=== PATIENT | female | born 1975 | race Caucasian/White ===

== ENCOUNTER 2020-10-08 10:36 | Outpatient (REF) | payer OTHER, SELFPAY ==
[2020-10-08 13:57] LABS: MANUAL DIFF FLAG NO
[2020-10-08 14:14] LABS: Basophils Absolute Auto 0.1 X10*3/uL (0.0-0.2); Basophils Percent Auto 0.5 % (0-2); Eosinophils Absolute Auto 0.6 X10*3/uL (0.0-0.4); Hematocrit 42.9 % (37-47); Hemoglobin 14.4 g/dl (12.0-16.0); Imm Gran Abs Auto 0.08 X10*3/uL (0.00-0.03); Imm Gran Pct Auto 0.9 % (0.0-0.4); Lymphocytes Absolute Auto 2.1 X10*3/uL (1.2-4.9); Lymphocytes Percent Auto 22.9 % (20-40); Mean Corpuscular HGB Conc 33.6 g/dl (31.0-35.0); Mean Corpuscular Hemoglobin 29.7 pg (27.0-33.0); Mean Corpuscular Volume 88.5 fL (80-98); Mean Platelet Volume 11.2 fL (9.4-12.3); Monocytes Absolute Auto 0.7 X10*3/uL (0.1-1.2); Monocytes Percent Auto 7.2 % (2-11); Neutrophils Absolute Auto 5.8 X10*3/uL (2.0-8.3); Neutrophils Percent Auto 62.5 % (45-73); Platelet Count 295 X10*3/uL (160-400); Red Blood Count 4.85 X10*6/uL (4.20-5.50); Red Cell Distribution Width 12.5 % (11.0-16.0); White Blood Count 9.2 X10*3/uL (4.8-10.8)
[2020-10-08 14:29] LABS: Alanine Aminotransferase 18 U/L (0-31); Albumin Level 4.5 g/dL (3.5-5.0); Alkaline Phosphatase 72 U/L (39-117); Anion Gap 12 (12-20); Aspartate Amino Transferase 17 U/L (5-31); Bilirubin Total 0.8 mg/dL (0.0-1.0); Blood Urea Nitrogen 19 mg/dL (9-16); Calcium 9.5 mg/dL (8.4-10.2); Carbon Dioxide 28 mmol/L (22-29); Chloride 100 mmol/L (96-108); Estimated Glomerular Filt Rate > 60; Glucose Random 92 mg/dL (60-115); Potassium 3.7 mmol/L (3.3-5.1); Sodium 136 mmol/L (135-145); Total Protein 7.5 g/dL (6.5-8.0)
[2020-10-09 03:11] LABS: LDL Cholesterol Direct 146 mg/dL (<100)
== END 2020-10-08 10:37 | disposition home or self-care (01) ==
LOC: HO.HMGCLDS 10:36
PROVIDERS: PCP Internal Medicine; Visit Provider Internal Medicine
DX: Z00.01 Encounter for general adult medical examination with abnormal findings (principal); J45.40 Moderate persistent asthma, uncomplicated; I10 Essential (primary) hypertension; K21.9 Gastro-esophageal reflux disease without esophagitis; Z91.09 Other allergy status, other than to drugs and biological substances
CPT/HCPCS: 36415; 80053; 83721; 85025

== ENCOUNTER 2021-03-14 15:37 | Outpatient (REF) | payer OTHER, SELFPAY | END 2021-03-14 15:38 | disposition home or self-care (01) | LOC: HO.LNP 15:37 | PROVIDERS: Visit Provider Physician Assistant Medical | DX: U07.1 COVID-19 (principal) | CPT/HCPCS: U0003; U0005 ==

== ENCOUNTER 2021-11-06 14:11 | Outpatient (REF) | payer OTHER, SELFPAY ==
[2021-11-06 16:38] LABS: MANUAL DIFF FLAG NO
[2021-11-06 16:43] LABS: Basophils Percent Auto 0.5 % (0-2); Eosinophils Absolute Auto 0.5 X10*3/uL (0.0-0.4); Eosinophils Percent Auto 5.6 % (0-4); Hematocrit 41.4 % (37.0-47.0); Hemoglobin 13.7 g/dl (12.0-16.0); Imm Gran Abs Auto 0.06 X10*3/uL (0.00-0.03); Imm Gran Pct Auto 0.7 % (0.0-0.4); Lymphocytes Absolute Auto 2.6 X10*3/uL (1.2-4.9); Lymphocytes Percent Auto 30.9 % (20-40); Mean Corpuscular HGB Conc 33.1 g/dl (31.0-35.0); Mean Corpuscular Volume 87.5 fL (80.0-98.0); Monocytes Absolute Auto 0.5 X10*3/uL (0.1-1.2); Monocytes Percent Auto 5.9 % (2-11); Neutrophils Absolute Auto 4.7 x10*3/uL (2.0-8.3); Neutrophils Percent Auto 56.4 % (45-73); Platelet Count 314 X10*3/uL (160-400); Red Blood Count 4.73 X10*6/uL (4.20-5.50); Red Cell Distribution Width 12.3 % (11.0-16.0); White Blood Count 8.4 X10*3/uL (4.8-10.8)
[2021-11-06 16:44] LABS: Appearance Urine HAZY; Color Urine YELLOW; Glucose Urine UA NEG (NEG); Leukocyte Esterase Urine NEG (NEG); Nitrite Urine NEG (NEG); Specific Gravity - Urine >= 1.030 (1.005-1.025); UACC Culture Trigger NO; Urine Blood 1+ (NEG); Urine Ketones NEG (NEG); Urine Protein NEG (NEG-TRACE)
[2021-11-06 16:57] LABS: Alanine Aminotransferase 18 U/L (0-31); Albumin Level 4.2 g/dL (3.5-5.0); Alkaline Phosphatase 67 U/L (39-117); Anion Gap 13 (12-20); Aspartate Amino Transferase 15 U/L (5-31); Bilirubin Total 0.4 mg/dL (0.0-1.0); Blood Urea Nitrogen 21 mg/dL (9-16); Calcium 9.5 mg/dL (8.4-10.2); Carbon Dioxide 27 mmol/L (22-29); Chloride 100 mmol/L (96-108); Estimated Glomerular Filt Rate > 60; Glucose Random 134 mg/dL (60-115); Potassium 3.3 mmol/L (3.3-5.1); Sodium 137 mmol/L (135-145); Total Protein 7.4 g/dL (6.5-8.0)
[2021-11-06 17:07] LABS: Squamous Epithelial Cell Urine 4+ /LPF; WBC Urine 0-2 /HPF (0-4)
[2021-11-06 17:08] LABS: Bacteria Urine 1+ /LPF; Mucus Urine 2+ /LPF
== END 2021-11-06 14:12 | disposition home or self-care (01) ==
LOC: HO.HMGCLDS 14:11
PROVIDERS: PCP Internal Medicine; Visit Provider Internal Medicine
DX: I10 Essential (primary) hypertension (principal); J45.40 Moderate persistent asthma, uncomplicated; K21.9 Gastro-esophageal reflux disease without esophagitis; Z91.09 Other allergy status, other than to drugs and biological substances
CPT/HCPCS: 36415; 80053; 81001; 85025

== ENCOUNTER 2023-09-21 12:42 | Outpatient (AMB) | payer OTHER, SELFPAY ==
[2023-09-21 12:47] VITALS: BP 120/84; PULSE 57; O2SAT 99; BMI 39.6
--- NOTE | 2023-09-21 12:47 | MHC.PC.OV ---
Vital Signs 09/21/23 12:47 Height 5 ft 6 in Weight 245 lb 2 oz BMI 39.6 BP 120/84 Blood Pressure Location Lt brachial Position Sitting Pulse 57 Pulse Source Pulse Oximeter Pulse Oximetry (%) 99 Oxygen Delivery Method Room Air Intake Visit Reasons: F/U on Symbicort Allergies amoxicillin Allergy (Unknown, Verified 09/21/23 12:49) hives hydromorphone [Dilaudid] Adverse Reaction (Unknown, Verified 09/21/23 12:49) makes her sick Environmental Allergy (Unknown, Uncoded 09/21/23 12:49) Unknown Medication List - Last Reconciled 09/21/23 by Shannan Mcnulty MD acetaminophen (Tylenol Extra Strength) 1,000 mg PO Q6H PRN albuterol sulfate 90 mcg/actuation (Ventolin HFA) 1 inh inhalation QID PRN 30 days fluticasone propionate 50 mcg/actuation (Allergy Relief (fluticasone)) 2 sprays intranasal DAILY hydrochlorothiazide 25 mg PO DAILY ipratropium-albuterol 0.5 mg-3 mg(2.5 mg base)/3 mL 3 mL inhalation Q4-6H PRN loratadine (Claritin) 10 mg PO DAILY metoprolol succinate ER 50 mg PO BID nifedipine ER 60 mg PO BID omeprazole 20 mg PO QAM 90 days Symbicort 160-4.5 mcg/actuation (budesonide-formoterol) 2 puffs inhalation BID 30 days NS Tobacco use date assessed: 09/21/23 Dental Screening Dental Screen Date: 09/21/23 Did you have a dental visit in the last 12 months?: No Did you have a dental problem in the last 6 months where you did not have access to dental care?: No Was dental information given to patient?: Patient has dentist HPI F/U on Symbicort HPI Details Patient is a 48-year-old female Patient is taking care of her sick father, also working full-time and home 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 8-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 We did the EKG today which shows normal sinus rhythm no acute findings 68 beats per minute Hypertension: Patient is taking all her medication blood pressure is running around 120s systolic she tells me, patient is monitoring it at home. Patient is on hydrochlorothiazide 25 mg, metoprolol 50 mg b.i.d. and nifedipine 60 mg b.i.d. Blood pressure is managed by Dr. [facility]er [facility] needs to be done today Asthma is stable patient is taking Symbicort regularly. She is also on DuoNeb aerosol treatment if needed Allergies are also stable patient is on steroid nasal spray, and long-acting antihistamine. Recurrent boils stable at this time BMI is elevated patient is trying to lose weight. Follow-up 4 months [facility] Surgical History History of surgery History of bone marrow donation History of myomectomy History of section Family History Father Neuropathy Diabetes mellitus Mother Afib CVD (cardiovascular disease) Myocardial infarction Brother Leukemia Brother No problems noted. Maternal Grandfather History of heart attack Maternal Grandmother Cancer Alzheimer's disease History of mastectomy Paternal Grandmother History of CVA (cerebrovascular accident) Paternal Grandfather Leukemia Maternal Aunt Ovarian cancer Brother No problems noted. Brother No problems noted. Son No problems noted. Social History Housing: House Alcohol intake: never Patient Tobacco Use Status: Never used Tobacco e-Cigarette/Vaping Use: Never Used service: No Current occupational status: employed Cognitive needs: No Hearing needs: No Vision needs: No Questionnaire PHQ-9 Over the last 2 weeks, how often have you been bothered by any of the following problems? 1. Little interest or pleasure in doing things: not at all 2. Feeling down, depressed, or hopeless: not at all 3. Trouble falling or staying asleep, or sleeping too much: several days 4. Feeling tired or having little energy: more than half the days 5. Poor appetite or overeating: not at all 6. Feeling bad about yourself - or that you are a failure or have let yourself or your family down: not at all 7. Trouble concentrating on things, such as reading the newspaper or watching television: not at all 8. Moving or speaking so slowly that other people could have noticed. Or the opposite - being so fidgety or restless that you have been moving around a lot more than usual: not at all 9. Thoughts that you would be better off or of hurting yourself in some way: not at all Total score: 3 Depression Screening Interpretation: Negative Depression Screening Done: Yes 67643 - PHQ-9 Billing: Yes Source: Developed by Drs. Andriy Jaramillo, Gissell Paniagua, Jono Stone and colleagues, with an educational jessa from [employer]. Thrive Questionnaire Date Thrive assessed: 09/21/23 I am a: Patient What is your living situation today?: I have a steady place to live Within the past 12 months, did the food you bought not last and you didn't have the money to get more?: Never true Within the past 12 months, did you worry whether your food would run out before you got money to buy more?: Never true Do you have trouble paying for medicines?: No Do you have trouble getting transportation to medical appointments?: No Do you have trouble paying your heating and electricity bill?: No Do you have trouble taking care of your child, family member or friend?: Yes Do you have trouble with day-to-day activities such as bathing, preparing meals, shopping, managing finances, etc.?: No Are you currently unemployed and looking for a job?: No Are you interested in more education?: No Please select the resources that you would like help with: None Currently or been in a relationship where the following occur: no concerns reported THRIVE Score: 0 AUDIT C Alcohol Use Questionnaire (AUDIT-C) 1. How often do you have a drink containing alcohol?: Never Total Score: 0 JLUIS-7 AMB Questionnaire JLUIS-7 Date JLUIS - 7 assessed: 09/21/23 Feeling nervous, anxious, or on edge: 1 = Several days Not being able to stop or control worryin = Not at all Worrying too much about different things: 0 = Not at all Trouble relaxin = Several days Being so restless that it is hard to sit still: 0 = Not at all Becoming easily annoyed or irritable: 0 = Not at all Feeling afraid as if something awful might happen: 0 = Not at all Total JLUIS-7 score (0-4 normal; 5-9 mild; 10-14 moderate; 15-21 severe): 2 Source: Developed by Drs. Andriy Jaramillo, Gissell Paniagua, Jono Stone and colleagues, with an educational jessa from [employer]. JLUIS-7 Assessment Billing JLUIS-7 Assessment Tool: JLUIS-7 Assessment 61810 Review of Systems Const Denies chills and Denies fever(s) ENT Denies epistaxis and Denies nasal discharge Resp Denies chest congestion, Denies cough and Denies hemoptysis GI Denies diarrhea and Denies nausea Skin/Breast Denies rash Neuro Reports no additional complaints Psych Reports no additional complaints Endo Reports no additional complaints Physical exam (Primary Care) Vital Signs: Last Vital Signs Pulse 57 09/21/23 12:47 BP 120/84 09/21/23 12:47 Pulse Ox 99 09/21/23 12:47 Oxygen Delivery Method Room Air 09/21/23 12:47 BMI result Body Mass Index 39.6 Tobacco/Smoking Status: Tobacco use Status Tobacco use date assessed 09/21/23 09/21/23 12:53 Patient Tobacco Use Status Never used Tobacco 09/21/23 12:53 e-Cigarette/Vaping Use Never Used 09/21/23 12:53 PHQ-9: PHQ-9 Score PHQ-9: Total score 3 09/21/23 13:16 Depression Screening Interpretation: Negative Thrive Assessment: Date of Thrive Assessment Date Thrive assessed 09/21/23 09/21/23 13:16 Currently or been in a relationship where the following occur: no concerns reported Const General: cooperative, comfortable and no acute distress Orientation/consciousness: patient oriented x3 HENMT Head: Yes normocephalic Eyes General: appearance normal, both eyes and all related structures Neck Neck: Yes supple Resp Effort & Inspection: normal respiratory effort, no cough and no stridor Cardio Rhythm: regular rhythm Heart sounds: S1 normal heart sound present and S2 normal heart sound present Skin General skin exam: turgor normal Neuro General: patient oriented x3, tone normal and moves all extremities Extrem Right lower extremity: no edema Left lower extremity: no edema Office Procedures EKG [id number], Complete Assessment and Plan Assessment & Plan (1) Hypertension, essential: Code(s): I10 - Essential (primary) hypertension (2) Asthma, moderate persistent: Code(s): J45.40 - Moderate persistent asthma, uncomplicated Qualifiers: Asthma complication type: uncomplicated Qualified Code(s): J45.40 - Moderate persistent asthma, uncomplicated (3) Environmental allergies: Code(s): Z91.09 - Other allergy status, other than to drugs and biological substances (4) Obesity due to excess calories: Code(s): E66.09 - Other obesity due to excess calories Qualifiers: Body mass index: BMI 39.0-39.9 Obesity classification: adult class 2 (BMI 35 - 39.9) Serious obesity comorbidity presence: with serious comorbidity Qualified Code(s): E66.01 - Morbid (severe) obesity due to excess calories; Z68.39 - Body mass index [BMI] 39.0-39.9, adult (5) Recurrent boils: Code(s): L02.93 - Carbuncle, unspecified (6) Chronic GERD: Code(s): K21.9 - Gastro-esophageal reflux disease without esophagitis (7) Atypical chest pain: Code(s): R07.89 - Other chest pain Plan Patient is a 48-year-old female Patient is taking care of her sick father, also working full-time and home 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 8-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 We did the EKG today which shows normal sinus rhythm no acute findings 68 beats per minute Hypertension: Patient is taking all her medication blood pressure is running around 120s systolic she tells me, patient is monitoring it at home. Patient is on hydrochlorothiazide 25 mg, metoprolol 50 mg b.i.d. and nifedipine 60 mg b.i.d. Blood pressure is managed by Dr. Mooreter [facility] needs to be done today Asthma is stable patient is taking Symbicort regularly. She is also on DuoNeb aerosol treatment if needed Allergies are also stable patient is on steroid nasal spray, and long-acting antihistamine. Recurrent boils stable at this time BMI is elevated patient is trying to lose weight. Follow-up 4 months Orders: Orders Comprehensive Met. Panel Today E66.09 - Other obesity due to excess calories, I10 - Essential (primary) hypertension, J45.40 - Moderate persistent asthma, uncomplicated, L02.93 - Carbuncle, unspecified, Z91.09 - Other allergy status, other than to drugs and biological substances TSH reflex Free T4 Today E66.09 - Other obesity due to excess calories, I10 - Essential (primary) hypertension, J45.40 - Moderate persistent asthma, uncomplicated, L02.93 - Carbuncle, unspecified, Z91.09 - Other allergy status, other than to drugs and biological substances Complete Blood Count Auto Diff Today E66.09 - Other obesity due to excess calories, I10 - Essential (primary) hypertension, J45.40 - Moderate persistent asthma, uncomplicated, L02.93 - Carbuncle, unspecified, Z91.09 - Other allergy status, other than to drugs and biological substances LDL Cholesterol Direct Today E66.09 - Other obesity due to excess calories, I10 - Essential (primary) hypertension, J45.40 - Moderate persistent asthma, uncomplicated, L02.93 - Carbuncle, unspecified, Z91.09 - Other allergy status, other than to drugs and biological substances AMB EKG-In Office Today R07.89 - Other chest pain Medications: New lorazepam 0.5 mg PO BEDTIME PRN 30 tabs 0RF anxiety Coding Level of Care Code Est Pt Level 4 (22504) Diagnoses Hypertension, essential I10 Moderate persistent asthma without complication J45.40 Asthma complication type: uncomplicated Environmental allergies Z91.09 Class 2 severe obesity due to excess calories with serious comorbidity and body mass index (BMI) of 39.0 to 39.9 in adult E66.01; Z68.39 Body mass index: BMI 39.0-39.9 Obesity classification: adult class 2 (BMI 35 - 39.9) Serious obesity comorbidity presence: with serious comorbidity Recurrent boils L02.93 Chronic GERD K21.9 Atypical chest pain R07.89 CPT Codes EKG - CPT: 21228-[id number], Complete ([id number]) Additional Codes JLUIS-7 Assessment Billing - JLUIS-7 Assessment Tool: JLUIS-7 Assessment 52479 ([id number])
== END 2023-09-21 13:21 | disposition home or self-care (01) ==
PROVIDERS: PCP Internal Medicine; Visit Provider Internal Medicine
DX: I10 Essential (primary) hypertension (principal); J45.40 Moderate persistent asthma, uncomplicated; Z91.09 Other allergy status, other than to drugs and biological substances; E66.01 Morbid (severe) obesity due to excess calories; Z68.39 Body mass index [BMI] 39.0-39.9, adult; L02.93 Carbuncle, unspecified; K21.9 Gastro-esophageal reflux disease without esophagitis; R07.89 Other chest pain
CPT/HCPCS: 93000; 99214

== ENCOUNTER 2023-09-21 13:22 | Outpatient (REF) | payer OTHER, SELFPAY ==
[2023-09-21 16:04] LABS: MANUAL DIFF FLAG NO
[2023-09-21 16:14] LABS: Basophils Absolute Auto 0.1 X10*3/uL (0.0-0.2); Basophils Percent Auto 0.7 % (0-2); Eosinophils Absolute Auto 0.5 X10*3/uL (0.0-0.4); Hematocrit 43.1 % (37.0-47.0); Hemoglobin 14.5 g/dl (12.0-16.0); Imm Gran Abs Auto 0.05 X10*3/uL (0.00-0.03); Imm Gran Pct Auto 0.6 % (0.0-0.4); Lymphocytes Absolute Auto 2.4 X10*3/uL (1.2-4.9); Lymphocytes Percent Auto 27.5 % (20-40); Mean Corpuscular HGB Conc 33.6 g/dl (31.0-35.0); Mean Corpuscular Hemoglobin 29.4 pg (27.0-33.0); Mean Corpuscular Volume 87.4 fL (80.0-98.0); Monocytes Absolute Auto 0.6 X10*3/uL (0.1-1.2); Monocytes Percent Auto 6.9 % (2-11); Neutrophils Absolute Auto 5.2 x10*3/uL (2.0-8.3); Neutrophils Percent Auto 58.3 % (45-73); Platelet Count 334 X10*3/uL (160-400); Red Blood Count 4.93 X10*6/uL (4.20-5.50); Red Cell Distribution Width 12.8 % (11.0-16.0); White Blood Count 8.9 X10*3/uL (4.8-10.8)
[2023-09-21 16:39] LABS: Alanine Aminotransferase 19 U/L (0-31); Albumin Level 4.3 g/dL (3.5-5.0); Alkaline Phosphatase 79 U/L (39-117); Anion Gap 11 (12-20); Aspartate Amino Transferase 16 U/L (5-31); Bilirubin Total 0.5 mg/dL (0.0-1.0); Blood Urea Nitrogen 18 mg/dL (9-16); Calcium 9.7 mg/dL (8.4-10.2); Carbon Dioxide 32 mmol/L (22-29); Chloride 100 mmol/L (96-108); Estimated Glomerular Filt Rate > 60; Glucose Random 92 mg/dL (60-115); Potassium 3.6 mmol/L (3.3-5.1); Sodium 139 mmol/L (135-145); Total Protein 7.8 g/dL (6.5-8.0)
[2023-09-22 09:48] LABS: LDL Cholesterol Direct 155 mg/dL (<100)
== END 2023-09-21 13:23 | disposition home or self-care (01) ==
LOC: HO.HMGCLDS 13:22
PROVIDERS: PCP Internal Medicine; Visit Provider Internal Medicine
DX: I10 Essential (primary) hypertension (principal); J45.40 Moderate persistent asthma, uncomplicated; E66.09 Other obesity due to excess calories; L02.93 Carbuncle, unspecified; Z91.09 Other allergy status, other than to drugs and biological substances
CPT/HCPCS: 36415; 80053; 83721; 84443; 85025

== ENCOUNTER 2024-02-06 15:49 | Outpatient (AMB) | payer OTHER, SELFPAY ==
--- NOTE | 2024-02-06 15:51 | MHC.OFFWIV ---
Intake Vital Signs 02/06/24 15:53 Height 5 ft 6 in Weight 240 lb BMI 38.7 BP 130/76 Blood Pressure Location Lt radial Position Sitting Pulse 76 Pulse Source Pulse Oximeter Temp 97.5 F Temp Source Temporal Artery Scan Pulse Oximetry (%) 98 Oxygen Delivery Method Room Air Intake Visit Reasons: EP- Patient is coughing and shortness of breath Intake Note: pt c/o cough and SOB. Covid + 8/2. symptoms not improving w/ meds Patient Tobacco Use Status: Never used Tobacco Allergies amoxicillin Allergy (Unknown, Verified 02/06/24 15:52) hives hydromorphone [Dilaudid] Adverse Reaction (Unknown, Verified 02/06/24 15:52) makes her sick Environmental Allergy (Unknown, Uncoded 02/06/24 15:52) Unknown Do you need a note to return to daycare/school/sports/work: No HPI EP- Patient is coughing and shortness of breath HPI Details This note is constructed using voice recognition software. While every effort has been made to ensure accuracy, heel top lift splitter errors may have been included. The patient is a 48 year old female who presents to the clinic today with dyspnea after being positive with COVID on January 26. She notes that she was seen in the urgent Care after several days, and was treated with prednisone burst, which she is on her last day of today. She notes that today she finally started getting some secretions up but did not feel better overall. She denies fever, chills, chest pain, does have cough and dyspnea with exertion and with talking, and with coughing. Does not have any dyspnea at rest. She is treating this with [id number] methods as well. She did not go to the emergency room as she is also responsible for the care of her elderly father, mother, and her child were all sick with COVID. [facility] History History of surgery History of bone marrow donation History of myomectomy History of section Family History Father Neuropathy Diabetes mellitus Mother Afib CVD (cardiovascular disease) Myocardial infarction Brother Leukemia Brother No problems noted. Maternal Grandfather History of heart attack Maternal Grandmother Cancer Alzheimer's disease History of mastectomy Paternal Grandmother History of CVA (cerebrovascular accident) Paternal Grandfather Leukemia Maternal Aunt Ovarian cancer Brother No problems noted. Brother No problems noted. Son No problems noted. Social History Housing: House Alcohol intake: never Patient Tobacco Use Status: Never used Tobacco e-Cigarette/Vaping Use: Never Used service: No Current occupational status: employed Cognitive needs: No Hearing needs: No Vision needs: No Review of Systems Const All systems reviewed & are unremarkable except as noted in HPI and below Physical Exam Vital Signs: Last Vital Signs Temp 97.5 F 02/06/24 15:53 Pulse 76 02/06/24 15:53 BP 130/76 02/06/24 15:53 Pulse Ox 98 02/06/24 15:53 Oxygen Delivery Method Room Air 02/06/24 15:53 BMI result Body Mass Index 38.7 Const General: cooperative, healthy appearing, comfortable and no acute distress Orientation/consciousness: patient oriented x3 Limitations: no limitations HEENT Head: Yes normal to inspection Ears: hearing grossly normal bilaterally, external ears normal and TM's normal bilaterally General nose exam: Normal external nose present, Normal nares present and No nasal discharge present Face and sinus: Yes normal facial exam and Yes sinuses nontender Mouth: Normal oral and palatal mucosa present and moist mucous membranes Throat: Yes tonsils normal, Yes uvula midline and Yes posterior oropharynx abnormal (Erythema) Eyes General: appearance normal, both eyes and all related structures Neck Neck: Yes normal visual inspection Resp Effort & Inspection: normal respiratory effort, able to speak in complete sentences, Actively coughing, no respiratory distress, not tachypneic, no tripod positioning and no use of accessory muscles Auscultation: clear to auscultation bilaterally Cardio Jugular venous distension: no JVD Rate: regular rate Rhythm: regular rhythm Heart sounds: S1 normal heart sound present, S2 normal heart sound present, no click, no gallops, no murmurs and no rubs Skin General skin exam: no rashes or lesions noted, elasticity normal and turgor normal Neuro General: patient oriented x3 Extrem General: Yes normal to inspection and Yes no clubbing, cyanosis or edema Assessment & Plan Assessment & Plan (1) Dyspnea: Code(s): R06.00 - Dyspnea, unspecified Qualifiers: Dyspnea type: dyspnea on exertion Qualified Code(s): R06.09 - Other forms of dyspnea Plan: Patient is 10 days status post COVID, is having some improvement in terms of secretions, however remains shortness of breath with exertion. She has completed her prednisone burst as it today, and would like to extend that. I have sent over prednisone taper. Additionally we are treating for atypical pneumonia with azithromycin, given the prolonged symptoms. Chest x-ray ordered to evaluate. Advised patient to go to the emergency room should she develop any shortness of breath at rest. Plan See above for full details and plan. Orders: Orders XR chest 2V Today R06.00 - Dyspnea, unspecified Medications: New azithromycin For 250 mg dose pack: take 500 mg today (day 1), then 250 mg for 4 days (days 2-5) PO 6 tabs 0RF prednisone see taper instructions: 5 pills daily for 2 days, then 4 pills daily for 2 days, then 3 pills daily for 2 days, then 2 pills daily for 2 days, then 1 pill daily for 2 days. 10 mg PO DIRECTED 30 tabs 0RF Coding Level of Care Code Est Pt Level 4 (97064) Diagnoses Dyspnea on exertion R06.09 Dyspnea type: dyspnea on exertion
[2024-02-06 15:53] VITALS: BP 130/76; PULSE 76; TEMP 36.4; O2SAT 98; BMI 38.7
== END 2024-02-06 16:18 | disposition home or self-care (01) ==
PROVIDERS: PCP Internal Medicine; Visit Provider Registered Nurse
DX: R06.09 Other forms of dyspnea (principal)
CPT/HCPCS: 99214

== ENCOUNTER 2024-02-06 16:09 | Outpatient (REF) | payer OTHER, SELFPAY ==
--- NOTE | ~2024-02-06 | XR_ITS ---
EXAMINATION: XR CHEST CLINICAL INFORMATION: Dyspnea. Covid positive. COMPARISON: None available. TECHNIQUE: 2 views of the chest were obtained. FINDINGS: The lungs are well expanded. Patchy bilateral airspace disease. No pleural effusion. Cardiac silhouette is within normal limits. XR/XR chest 2V IMPRESSION: Multifocal pneumonia. Follow-up until resolution is advised.
== END 2024-02-06 16:10 | disposition home or self-care (01) ==
LOC: HO.HMGCX 16:09
PROVIDERS: PCP Internal Medicine; Visit Provider Registered Nurse
DX: R06.00 Dyspnea, unspecified (principal)
CPT/HCPCS: 71046

== ENCOUNTER 2024-04-04 12:26 | Outpatient (AMB) | payer OTHER, SELFPAY ==
[2024-04-04 12:30] VITALS: BP 136/80; PULSE 88; O2SAT 95; BMI 37.8
--- NOTE | 2024-04-04 12:30 | A.OFFPC_ITS ---
Vital Signs 04/04/24 12:30 Height 5 ft 6 in Weight 234 lb 6 oz BMI 37.8 BP 136/80 Blood Pressure Location Lt brachial Position Sitting Pulse 88 Pulse Source Pulse Oximeter Pulse Oximetry (%) 95 Oxygen Delivery Method Room Air Intake Visit Reasons: Medications follow up Allergies amoxicillin Allergy (Unknown, Verified 02/06/24 15:52) hives hydromorphone [Dilaudid] Adverse Reaction (Unknown, Verified 02/06/24 15:52) makes her sick Environmental Allergy (Unknown, Uncoded 02/06/24 15:52) Unknown Medication List - Last Reconciled 04/04/24 by Shannan Mcnulty MD acetaminophen (Tylenol Extra Strength) 1,000 mg PO Q6H PRN azithromycin For 250 mg dose pack: take 500 mg today (day 1), then 250 mg for 4 days (days 2-5) PO fluticasone propionate 50 mcg/actuation (Allergy Relief (fluticasone)) 2 sprays intranasal DAILY hydrochlorothiazide 25 mg PO DAILY ipratropium-albuterol 0.5 mg-3 mg(2.5 mg base)/3 mL 3 mL inhalation Q4-6H PRN levofloxacin 750 mg PO DAILY loratadine (Claritin) 10 mg PO DAILY lorazepam 0.5 mg PO BEDTIME PRN metoprolol succinate ER 50 mg PO BID nifedipine ER 60 mg PO BID omeprazole 20 mg PO QAM prednisone 50 mg PO DAILY prednisone 10 mg PO DIRECTED Symbicort 160-4.5 mcg/actuation (budesonide-formoterol) 2 puffs inhalation BID 90 days NS Ventolin HFA 90 mcg/actuation (albuterol sulfate) 1 inh inhalation QID PRN 30 days NS Tobacco use date assessed: 09/21/23 Dental Screening Dental Screen Date: 09/21/23 HPI Medications follow up HPI Details Patient is a 49-year-old female who was last seen August of this year She has been dealing with father's sickness Patient is on lorazepam as a sleep aid only if needed Ninety tablets sent for next six-month She comes in six-month for follow-up appointment Asthma management is through this office patient is on Symbicort regularly and DuoNeb as needed she is doing well Allergies are stable with steroid nasal spray and long-acting antihistamine Hypertension: Patient is on hydrochlorothiazide 25 mg, metoprolol 50 mg b.i.d. and nifedipine 60 mg b.i.d. Blood pressure is managed by Dr. [facility] needs to be done today BMI is elevated patient is trying to lose weight. Follow-up 6 months [facility] Surgical History History of surgery History of bone marrow donation History of myomectomy History of section Family History Father Neuropathy Diabetes mellitus Mother Afib CVD (cardiovascular disease) Myocardial infarction Brother Leukemia Brother No problems noted. Maternal Grandfather History of heart attack Maternal Grandmother Cancer Alzheimer's disease History of mastectomy Paternal Grandmother History of CVA (cerebrovascular accident) Paternal Grandfather Leukemia Maternal Aunt Ovarian cancer Brother No problems noted. Brother No problems noted. Son No problems noted. Social History Housing: House Alcohol intake: never Patient Tobacco Use Status: Never used Tobacco e-Cigarette/Vaping Use: Never Used service: No Current occupational status: employed Cognitive needs: No Hearing needs: No Vision needs: No Questionnaire Thrive Questionnaire Date Thrive assessed: 09/21/23 AUDIT C Alcohol Use Questionnaire (AUDIT-C) 1. How often do you have a drink containing alcohol?: Never 3. How often do you have six or more drinks on one occasion?: Never Total Score: 0 Score Reviewed/Action Taken: Yes JLUIS-7 AMB Questionnaire JLUIS-7 Date JLUIS - 7 assessed: 09/21/23 Source: Developed by Drs. Andriy Jaramillo, Gissell Paniagua, Jono Stone and colleagues, with an educational jessa from [employer]. Review of Systems Const Denies chills and Denies fever(s) ENT Denies epistaxis and Denies nasal discharge Card Denies chest pain Resp Denies chest congestion, Denies cough and Denies hemoptysis GI Denies diarrhea and Denies nausea Skin/Breast Denies rash Neuro Reports no additional complaints Psych Reports no additional complaints Endo Reports no additional complaints Physical exam (Primary Care) Vital Signs: Last Vital Signs Pulse 88 04/04/24 12:30 BP 136/80 04/04/24 12:30 Pulse Ox 95 04/04/24 12:30 Oxygen Delivery Method Room Air 04/04/24 12:30 BMI result Body Mass Index 37.8 Tobacco/Smoking Status: Tobacco use Status Tobacco use date assessed 09/21/23 04/04/24 12:31 Patient Tobacco Use Status Never used Tobacco 04/04/24 12:31 e-Cigarette/Vaping Use Never Used 04/04/24 12:31 Thrive Assessment: Date of Thrive Assessment Date Thrive assessed 09/21/23 04/04/24 12:31 Const General: cooperative, comfortable and no acute distress Orientation/consciousness: patient oriented x3 HENMT Head: Yes normocephalic Eyes General: appearance normal, both eyes and all related structures Neck Neck: Yes supple Resp Effort & Inspection: normal respiratory effort, no cough and no stridor Cardio Rhythm: regular rhythm Heart sounds: S1 normal heart sound present and S2 normal heart sound present Skin General skin exam: turgor normal Neuro General: patient oriented x3, tone normal and moves all extremities Extrem Right lower extremity: no edema Left lower extremity: no edema Coding Level of Care Code Est Pt Level 4 (86015) Complex EM visit Add On G2211 Diagnoses Moderate persistent asthma without complication J45.40 Asthma complication type: uncomplicated Hypertension, essential I10 Environmental allergies Z91.09 Class 2 severe obesity due to excess calories with serious comorbidity and body mass index (BMI) of 39.0 to 39.9 in adult E66.01; Z68.39 Body mass index: BMI 39.0-39.9 Obesity classification: adult class 2 (BMI 35 - 39.9) Serious obesity comorbidity presence: with serious comorbidity Difficulty sleeping G47.9 Assessment & Plan Assessment & Plan (1) Asthma, moderate persistent: Code(s): J45.40 - Moderate persistent asthma, uncomplicated Category: Medical Qualifiers: Asthma complication type: uncomplicated Qualified Code(s): J45.40 - Moderate persistent asthma, uncomplicated (2) Hypertension, essential: Code(s): I10 - Essential (primary) hypertension Category: Medical (3) Environmental allergies: Code(s): Z91.09 - Other allergy status, other than to drugs and biological substances Category: Medical (4) Obesity due to excess calories: Code(s): E66.09 - Other obesity due to excess calories Category: Medical Qualifiers: Body mass index: BMI 39.0-39.9 Obesity classification: adult class 2 (BMI 35 - 39.9) Serious obesity comorbidity presence: with serious comorbidity Qualified Code(s): E66.01 - Morbid (severe) obesity due to excess calories; Z68.39 - Body mass index [BMI] 39.0-39.9, adult (5) Difficulty sleeping: Code(s): G47.9 - Sleep disorder, unspecified Category: Medical Plan Patient is a 49-year-old female who was last seen August of this year She has been dealing with father's sickness Patient is on lorazepam as a sleep aid only if needed Ninety tablets sent for next six-month She comes in six-month for follow-up appointment Asthma management is through this office patient is on Symbicort regularly and D uoNeb as needed she is doing well Allergies are stable with steroid nasal spray and long-acting antihistamine Hypertension: Patient is on hydrochlorothiazide 25 mg, metoprolol 50 mg b.i.d. and nifedipine 60 mg b.i.d. Blood pressure is managed by Dr. [facility] needs to be done today BMI is elevated patient is trying to lose weight. Follow-up 6 months Orders: Orders Complete Blood Count Auto Diff Today E66.01 - Morbid (severe) obesity due to excess calories, G47.9 - Sleep disorder, unspecified, I10 - Essential (primary) hypertension, J45.40 - Moderate persistent asthma, uncomplicated, Z68.39 - Body mass index [BMI] 39.0-39.9, adult, Z91.09 - Other allergy status, other than to drugs and biological substances Lipid Panel Today E66.01 - Morbid (severe) obesity due to excess calories, G47.9 - Sleep disorder, unspecified, I10 - Essential (primary) hypertension, J45.40 - Moderate persistent asthma, uncomplicated, Z68.39 - Body mass index [BMI] 39.0-39.9, adult, Z91.09 - Other allergy status, other than to drugs and biological substances TSH reflex Free T4 Today E66.01 - Morbid (severe) obesity due to excess calories, G47.9 - Sleep disorder, unspecified, I10 - Essential (primary) hypertension, J45.40 - Moderate persistent asthma, uncomplicated, Z68.39 - Body mass index [BMI] 39.0-39.9, adult, Z91.09 - Other allergy status, other than to drugs and biological substances [employer] [place]. Panel Fast Today E66.01 - Morbid (severe) obesity due to excess calories, G47.9 - Sleep disorder, unspecified, I10 - Essential (primary) hypertension, J45.40 - Moderate persistent asthma, uncomplicated, Z68.39 - Body mass index [BMI] 39.0-39.9, adult, Z91.09 - Other allergy status, other than to drugs and biological substances Medications: Changed From lorazepam 0.5 mg PO BEDTIME PRN 30 tabs 0RF anxiety To lorazepam 0.5 mg PO BEDTIME 90 days PRN 90 tabs 0RF anxiety Refilled ipratropium-albuterol 0.5 mg-3 mg(2.5 mg base)/3 mL 3 mL inhalation Q4-6H PRN 90 mL 0RF wheezing Symbicort 160-4.5 mcg/actuation (budesonide-formoterol) 2 puffs inhalation BID 90 days 3 multiple units 1RF NS Discontinued azithromycin Discontinued Reason: Doctor's Order For 250 mg dose pack: take 500 mg today (day 1), then 250 mg for 4 days (days 2-5) PO 6 tabs 0RF levofloxacin Discontinued Reason: Order 750 mg PO DAILY 7 tabs 0RF prednisone see taper instructions: 5 pills daily for 2 days, then 4 pills daily for 2 days, then 3 pills daily for 2 days, then 2 pills daily for 2 days, then 1 pill daily for 2 days. Discontinued Reason: Patient no longer taking 10 mg PO DIRECTED 30 tabs 0RF
== END 2024-04-04 12:41 | disposition home or self-care (01) ==
PROVIDERS: PCP Internal Medicine; Visit Provider Internal Medicine
DX: J45.40 Moderate persistent asthma, uncomplicated (principal); I10 Essential (primary) hypertension; Z91.09 Other allergy status, other than to drugs and biological substances; E66.01 Morbid (severe) obesity due to excess calories; Z68.39 Body mass index [BMI] 39.0-39.9, adult; G47.9 Sleep disorder, unspecified

== ENCOUNTER → 2024-04-04 12:26 | Outpatient (BNVA) | payer OTHER, SELFPAY | PROVIDERS: PCP Internal Medicine; Visit Provider Internal Medicine | DX: J45.40 Moderate persistent asthma, uncomplicated (principal); I10 Essential (primary) hypertension; Z91.09 Other allergy status, other than to drugs and biological substances; E66.01 Morbid (severe) obesity due to excess calories; Z68.39 Body mass index [BMI] 39.0-39.9, adult; G47.9 Sleep disorder, unspecified | CPT/HCPCS: 99212 ==

== ENCOUNTER 2024-04-04 12:43 | Outpatient (REF) | payer OTHER, SELFPAY ==
[2024-04-04 16:10] LABS: MANUAL DIFF FLAG NO
[2024-04-04 16:18] LABS: Basophils Absolute Auto 0.1 X10*3/uL (0.0-0.2); Basophils Percent Auto 0.5 % (0-2); Eosinophils Absolute Auto 0.4 X10*3/uL (0.0-0.4); Eosinophils Percent Auto 4.8 % (0-4); Hematocrit 41.9 % (37.0-47.0); Hemoglobin 14.3 g/dl (12.0-16.0); Imm Gran Abs Auto 0.04 X10*3/uL (0.00-0.03); Imm Gran Pct Auto 0.4 % (0.0-0.4); Lymphocytes Absolute Auto 2.3 X10*3/uL (1.2-4.9); Lymphocytes Percent Auto 25.6 % (20-40); Mean Corpuscular HGB Conc 34.1 g/dl (31.0-35.0); Mean Corpuscular Hemoglobin 29.6 pg (27.0-33.0); Mean Corpuscular Volume 86.7 fL (80.0-98.0); Monocytes Absolute Auto 0.6 X10*3/uL (0.1-1.2); Monocytes Percent Auto 6.6 % (2-11); Neutrophils Absolute Auto 5.7 x10*3/uL (2.0-8.3); Neutrophils Percent Auto 62.1 % (45-73); Platelet Count 346 X10*3/uL (160-400); Red Blood Count 4.83 X10*6/uL (4.20-5.50); Red Cell Distribution Width 12.8 % (11.0-16.0); White Blood Count 9.2 X10*3/uL (4.8-10.8)
[2024-04-04 16:37] LABS: Alanine Aminotransferase 19 U/L (0-31); Albumin Level 4.3 g/dL (3.5-5.0); Alkaline Phosphatase 78 U/L (39-117); Anion Gap 13 (12-20); Aspartate Amino Transferase 18 U/L (5-31); Bilirubin Total 0.7 mg/dL (0.0-1.0); Blood Urea Nitrogen 14 mg/dL (9-16); Calcium 9.8 mg/dL (8.4-10.2); Carbon Dioxide 28 mmol/L (22-29); Chloride 102 mmol/L (96-108); Cholesterol 221 mg/dL (<200); Estimated Glomerular Filt Rate > 60; Glucose Fasting 111 mg/dL (60-99); HDL Cholesterol 36 mg/dL (>40); LDL Cholesterol Calculated 141 mg/dL (<100); Sodium 140 mmol/L (135-145); Total Protein 7.6 g/dL (6.5-8.0); Triglycerides 223 mg/dL (<150)
[2024-04-04 16:52] LABS: TSH reflex Free T4 1.73 uIU/mL (0.32-4.0)
== END 2024-04-04 12:44 | disposition home or self-care (01) ==
LOC: HO.HMGCLDS 12:43
PROVIDERS: PCP Internal Medicine; Visit Provider Internal Medicine
DX: J45.40 Moderate persistent asthma, uncomplicated (principal); I10 Essential (primary) hypertension; Z91.09 Other allergy status, other than to drugs and biological substances; G47.9 Sleep disorder, unspecified; E66.01 Morbid (severe) obesity due to excess calories; Z68.39 Body mass index [BMI] 39.0-39.9, adult
CPT/HCPCS: 36415; 80053; 80061; 84443; 85025

== ENCOUNTER 2024-07-10 12:37 | Outpatient (AMB) | payer OTHER, SELFPAY ==
[2024-07-10 13:40] VITALS: BP 134/78; PULSE 90; TEMP 36.8; O2SAT 97; BMI 39.7
--- NOTE | 2024-07-10 13:40 | AM.OFFWIN_ITS ---
Intake Vital Signs 07/10/24 13:40 Height 5 ft 6 in Weight 246 lb BMI 39.7 BP 134/78 Blood Pressure Location Rt brachial Position Sitting Pulse 90 Pulse Source Pulse Oximeter Temp 98.2 F Temp Source Oral Pulse Oximetry (%) 97 Oxygen Delivery Method Room Air Intake Visit Reasons: EP ?bronchitis Intake Note: Pt is here today for a walk in visit. Pt c/o cough, congestion. Pt states that her 9 year child has bronchitis. Patient Tobacco Use Status: Never used Tobacco Allergies amoxicillin Allergy (Unknown, Verified 07/10/24 13:42) hives hydromorphone [Dilaudid] Adverse Reaction (Unknown, Verified 07/10/24 13:42) makes her sick Environmental Allergy (Unknown, Uncoded 07/10/24 13:42) Unknown Do you need a note to return to daycare/school/sports/work: Yes HPI HPI Comments History of Present Illness Details History - The patient is a 49-year-old female pr esenting with cough and nasal congestion. - Symptoms commenced four days prior, in itiated by general malaise, followed by cough and nasal discharge. - Suspected contagion source is her son, previously diagnosed with bronchitis but now feeling better with no antibiotics. - Notably reported mucus sensation in th roat and ear blockage, with a history of temperature readings typically around 97.4?F. - Patient has a chronic history of asthm a, with increased usage of Symbicort and Albuterol inhalers recently. - History of bronchitis and COVID-19 rosie ding to pneumonia, necessitating hospitalization in the summer. - Asthma-related interventions have incl uded nebulizer treatment and asthma inhalers; dependency increased with recent symptoms. 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 - Patient is requesting Azithromycin and prednisone today. Physical Exam General: Cooperative, healthy appearing, comfortable and no acute distress Orientation/consciousness: Patient oriented x3 Limitations: No limitations Head: Normal to inspection Ears: Hearing grossly normal bilaterally, external ears normal and TM's normal bilaterally, but ears are blocked Nose: Normal external nose present, Normal nares present and Runny nose present Face and sinus: Normal facial exam and Yes sinuses nontender Mouth: Normal oral and palatal mucosa present and moist mucous membranes Throat: Yes tonsils normal, Yes uvula midline. Posterior oropharynx erythema, no exudates noted Eyes: Appearance normal, both eyes and all related structures Neck: Normal visual inspection Respiratory: expiratory wheezes to auscultation bilaterally. Normal respiratory effort, able to speak in complete sentences, Actively coughing, no respiratory d istress, not tachypneic, no tripod positioning and no use of accessory muscles. Cardiovascular: Regular rate and rhythm. Normal S1 and S2 Skin: No rashes or lesions noted Neuro: Patient oriented x3 Extremities: Normal to inspection and Yes no clubbing, cyanosis or edema [facility] Surgical History History of surgery History of bone marrow donation History of myomectomy History of section Family History Father Neuropathy Diabetes mellitus Mother Afib CVD (cardiovascular disease) Myocardial infarction Brother Leukemia Brother No problems noted. Maternal Grandfather History of heart attack Maternal Grandmother Cancer Alzheimer's disease History of mastectomy Paternal Grandmother History of CVA (cerebrovascular accident) Paternal Grandfather Leukemia Maternal Aunt Ovarian cancer Brother No problems noted. Brother No problems noted. Son No problems noted. Social History Housing: House Alcohol intake: never Patient Tobacco Use Status: Never used Tobacco e-Cigarette/Vaping Use: Never Used service: No Current occupational status: employed Cognitive needs: No Hearing needs: No Vision needs: No Review of Systems Const All systems reviewed & are unremarkable except as noted in HPI and below Physical Exam Vital Signs: Last Vital Signs Temp 98.2 F 07/10/24 13:40 Pulse 90 07/10/24 13:40 BP 134/78 07/10/24 13:40 Pulse Ox 97 07/10/24 13:40 Oxygen Delivery Method Room Air 07/10/24 13:40 BMI result Body Mass Index 39.7 Assessment & Plan Assessment & Plan (1) Lower respiratory infection (e.g., bronchitis, pneumonia, pneumonitis, pulmonitis): Code(s): J22 - Unspecified acute lower respiratory infection Plan: Management involves continuation of her asthma treatment with nebulizer and inhaler use, alongside a five-day prednisone course for symptomatic relief. Az ithromycin is also prescribed due to its anti-inflammatory properties. Patient is advised that while antibiotic therapy is not typically effective for viral infections like flu, COVID-19, or RSV, it may be beneficial for anti- inflammatory symptomatic relief. Continued observation and possible chest x-ray are recommended if symptom progression occurs despite current medication. Current testing for flu, COVID-19, and RSV is underway to determine any viral etiology. The patient is reassured that observed throat irritation is most likely due to post-nasal drip rather than strep pharyngitis. Monitoring for potential symptom worsening and follow-up given the patient's history of respiratory complications is imperative. Patient was informed and verbally consented to the use of an ambient scribe for clinic note documentation during this visit Orders: Orders SARS-CoV2/FLU/RSV Today J22 - Unspecified acute lower respiratory infection XR chest 2V Today R05.9 - Cough, unspecified Medications: New azithromycin For 250 mg dose pack: take 500 mg today (day 1), then 250 mg for 4 days (days 2-5) PO 6 tabs 0RF prednisone 40 mg (2 x 20 mg) PO DAILY 10 tabs 0RF Coding Level of Care Code Est Pt Level 4 (13588) Diagnoses Lower respiratory infection (e.g., bronchitis, pneumonia, pneumonitis, pulmonitis) J22
== END 2024-07-10 14:10 | disposition home or self-care (01) ==
PROVIDERS: PCP Internal Medicine; Visit Provider Physician Assistant
DX: J22 Unspecified acute lower respiratory infection (principal)

== ENCOUNTER 2024-07-13 14:16 | Outpatient (REF) | payer OTHER, SELFPAY ==
--- NOTE | ~2024-07-13 | XR_ITS ---
EXAMINATION: XR CHEST 2 VIEWS HISTORY: R05.9 - Cough, unspecified COMPARISON: There are no prior studies for comparison. FINDINGS: PA and lateral views of the chest are submitted. There is faint residual opacity in the right upper lobe at site of previously seen pneumonia. The left lung is clear. There is no pleural effusion, pneumothorax, or pulmonary vascular congestion. The heart is normal in size. The bones are intact. XR/XR chest 2V IMPRESSION: Faint persistent right upper lobe opacity which could represent scarring. However, given lack of complete resolution since 02/06/2024, chest CT should be considered to exclude neoplasm. Electronically signed by: Andriy Suero MD 07/13/2024 03:43 PM EST
== END 2024-07-13 14:17 | disposition home or self-care (01) ==
LOC: HO.HMGCX 14:16
PROVIDERS: PCP Internal Medicine; Visit Provider Physician Assistant
DX: J20.5 Acute bronchitis due to respiratory syncytial virus (principal); R05.9 Cough, unspecified
CPT/HCPCS: 71046; 99212

== ENCOUNTER 2024-07-13 14:16 | Outpatient (AMB) | payer OTHER, SELFPAY ==
--- NOTE | 2024-07-13 14:57 | AM.OFFWIN_ITS ---
Intake Vital Signs 07/13/24 15:06 Weight 251 lb BP 140/100 H Blood Pressure Location Lt brachial Position Sitting Pulse 74 Pulse Source Pulse Oximeter Temp 98.7 F Temp Source Oral Pulse Oximetry (%) 97 Oxygen Delivery Method Room Air Intake Visit Reasons: EP RSV, severe cough, wheezing, SOB, congestion Intake Note: Patient here for severe cough, wheezing and SOB she states she has 1 more day of meds and has not improved. Patient Tobacco Use Status: Never used Tobacco Allergies amoxicillin Allergy (Unknown, Verified 07/13/24 15:09) hives hydromorphone [Dilaudid] Adverse Reaction (Unknown, Verified 07/13/24 15:09) makes her sick Environmental Allergy (Unknown, Uncoded 07/13/24 15:09) Unknown Do you need a note to return to daycare/school/sports/work: Yes HPI HPI Comments History of Present Illness Details History - The patient is a 49-year-old female pr esenting with breathing difficulty due to RSV infection. - Positive RSV diagnosis was confirmed o n September 07, leading to treatment interventions with prednisone and a Z-Diego with incomplete symptom resolution. - Recorded history of asthma since infan cy with frequent lifetime steroid use, requiring tapered dosing in the past. - Current symptoms include bronchial con gestion and impaired expectoration, persistent ear fullness, elevated blood pressure, and head fullness, with ongoing inhaler and nebulizer use. - Known difficulty swallowing large medi cations led to the current preference for liquid alternatives. - Recent interruption of kidney-related healthcare plans due to current respiratory illness. - Intervention history includes glucocor ticoid therapy initiated in the morning due to trouble sleeping when taken at night. Physical Exam General: Cooperative, healthy appearing, comfortable and no acute distress Orientation/consciousness: Patient oriented x3 Limitations: No limitations Head: Normal to inspection Ears: Hearing grossly normal bilaterally, external ears normal and TM's normal bilaterally Nose: Normal external nose present, Normal nares present and No nasal discharge present Face and sinus: Normal facial exam and Yes sinuses nontender Mouth: Normal oral and palatal mucosa present and moist mucous membranes Throat: Yes tonsils normal, Yes uvula midline. Posterior oropharynx erythema Eyes: Appearance normal, both eyes and all related structures Neck: Normal visual inspection Respiratory: exp wheezes bilaterally. Normal respiratory effort, able to speak in complete sentences, Actively coughing, no respiratory distress, not tachypneic, no tripod positioning and no use of accessory muscles Cardiovascular: Regular rate and rhythm. Normal S1 and S2 Skin: No rashes or lesions noted Neuro: Patient oriented x3 Extremities: Normal to inspection and Yes no clubbing, cyanosis or edema [facility] Surgical History History of surgery History of bone marrow donation History of myomectomy History of section Family History Father Neuropathy Diabetes mellitus Mother Afib CVD (cardiovascular disease) Myocardial infarction Brother Leukemia Brother No problems noted. Maternal Grandfather History of heart attack Maternal Grandmother Cancer Alzheimer's disease History of mastectomy Paternal Grandmother History of CVA (cerebrovascular accident) Paternal Grandfather Leukemia Maternal Aunt Ovarian cancer Brother No problems noted. Brother No problems noted. Son No problems noted. Social History Housing: House Alcohol intake: never Patient Tobacco Use Status: Never used Tobacco e-Cigarette/Vaping Use: Never Used service: No Current occupational status: employed Cognitive needs: No Hearing needs: No Vision needs: No Review of Systems Const All systems reviewed & are unremarkable except as noted in HPI and below Physical Exam Vital Signs: Last Vital Signs Temp 98.7 F 07/13/24 15:06 Pulse 74 07/13/24 15:06 BP 140/100 H 07/13/24 15:06 Pulse Ox 97 07/13/24 15:06 Oxygen Delivery Method Room Air 07/13/24 15:06 Assessment & Plan Assessment & Plan (1) RSV bronchitis: Code(s): J20.5 - Acute bronchitis due to respiratory syncytial virus Plan: Plan The management strategy for this patient's RSV infection with associated asthma exacerbation involves the use of Solu Medrol in a tapered dosage format to address inflammation associated with her respiratory symptoms. The patient will follow a specific schedule taking the entire day's medication dose in the morning to minimize sleep disruptions. A chest x-ray is ordered to assess any pulmonary involvement, particularly possible pneumonia, which would require antibiotics such as liquid Augmentin for ease of intake. Nebulizer therapy TID has been recommended to maintain open airways, with careful attention paid to her heart rate and overall response. Emergency care is advised if symptoms worsen significantly. Patient was informed and verbally consented to the use of an ambient scribe for clinic note documentation during this visit Medications: New albuterol sulfate 90 mcg/actuation (Ventolin HFA) 2 puffs inhalation Q4-6H PRN 8.5 grams 0RF shortness of breath or wheezing methylprednisolone PO PER PKG DIR for 6 days 21 ea 0RF Coding Level of Care Code Est Pt Level 4 (94805) Diagnoses RSV bronchitis J20.5
[2024-07-13 15:06] VITALS: BP 140/100; PULSE 74; TEMP 37.1; O2SAT 97
== END 2024-07-13 16:09 | disposition home or self-care (01) ==
PROVIDERS: PCP Internal Medicine; Visit Provider Physician Assistant
DX: J20.5 Acute bronchitis due to respiratory syncytial virus (principal)

== ENCOUNTER → 2024-07-13 15:29 | Outpatient (BNV) | payer OTHER, SELFPAY | PROVIDERS: PCP Internal Medicine; Visit Provider Radiology Diagnostic Radiology | DX: R05.9 Cough, unspecified (principal) | CPT/HCPCS: 71046 ==

== ENCOUNTER 2024-07-19 15:01 | Outpatient (AMB) | payer OTHER, SELFPAY ==
--- NOTE | 2024-07-19 15:08 | AM.OFFWIN_ITS ---
Intake Vital Signs 07/19/24 15:09 Weight 253 lb BP 140/100 H Blood Pressure Location Rt brachial Position Sitting Pulse 81 Pulse Source Pulse Oximeter Temp 98.2 F Temp Source Oral Pulse Oximetry (%) 97 Oxygen Delivery Method Room Air Intake Visit Reasons: EP RSV+, not better- ? pneumonia Intake Note: Patient here for SOB that has not gotten better and crackling Patient Tobacco Use Status: Never used Tobacco Allergies amoxicillin Allergy (Unknown, Verified 07/13/24 15:09) hives hydromorphone [Dilaudid] Adverse Reaction (Unknown, Verified 07/13/24 15:09) makes her sick Environmental Allergy (Unknown, Uncoded 07/13/24 15:09) Unknown HPI HPI Comments History of Present Illness Details 49 y/o female patient who presents to [facility] walk in clinic with c/o Cough, SOB, Wheezing and chest tightness. She was last seen here 07/13 and diagnosed with RSV. Chest Xray done 07/13 showed There is faint residual opacity in the right upper lobe at site of previously seen pneumonia. The left lung is clear. There is no pleural effusion, pneumothorax, or pulmonary vascular congestion. CT Scan Chest was recommended by Radiology. PCP (Dr. Mcnulty) [place] repeat Chest Xray in Jul was warranted at that time. Pt was prescribed Steroid Oral Taper dose plus Albuterol inhaler. Pt feels like her symptoms are getting worse, she is unable to breathe. Her Vitals today WNL - Her O2 SAT 97% on RA. [facility] Surgical History History of surgery History of bone marrow donation History of myomectomy History of section Family History Father Neuropathy Diabetes mellitus Mother Afib CVD (cardiovascular disease) Myocardial infarction Brother Leukemia Brother No problems noted. Maternal Grandfather History of heart attack Maternal Grandmother Cancer Alzheimer's disease History of mastectomy Paternal Grandmother History of CVA (cerebrovascular accident) Paternal Grandfather Leukemia Maternal Aunt Ovarian cancer Brother No problems noted. Brother No problems noted. Son No problems noted. Social History Housing: House Alcohol intake: never Patient Tobacco Use Status: Never used Tobacco e-Cigarette/Vaping Use: Never Used service: No Current occupational status: employed Cognitive needs: No Hearing needs: No Vision needs: No Review of Systems Const All systems reviewed & are unremarkable except as noted in HPI and below Physical Exam Vital Signs: Last Vital Signs Temp 98.2 F 07/19/24 15:09 Pulse 81 07/19/24 15:09 BP 140/100 H 07/19/24 15:09 Pulse Ox 97 07/19/24 15:09 Oxygen Delivery Method Room Air 07/19/24 15:09 Const General: cooperative and no acute distress; No comfortable Nutritional Appearance: obese Orientation/consciousness: patient oriented x3 Resp Effort & Inspection: normal respiratory effort, able to speak in complete sentences, audible wheezes and Actively coughing Auscultation: no crackles, no rales, rhonchi lower bilaterally and wheezes scattered wheezes Cardio Heart sounds: S1 normal heart sound present and S2 normal heart sound present Neuro General: patient oriented x3, gait normal and moves all extremities Psych Speech and movement: Normal speech and movement present Assessment & Plan Assessment & Plan (1) RSV bronchitis: Code(s): J20.5 - Acute bronchitis due to respiratory syncytial virus Plan: Advised Pt to go to ED for further evaluation and treatment. Coding Level of Care Code Est Pt Level 3 (35594) Diagnoses RSV bronchitis J20.5 Time Spent (min) 15
[2024-07-19 15:09] VITALS: BP 140/100; PULSE 81; TEMP 36.8; O2SAT 97
== END 2024-07-19 15:40 | disposition home or self-care (01) ==
PROVIDERS: PCP Internal Medicine; Visit Provider Nurse Practitioner Family
DX: J20.5 Acute bronchitis due to respiratory syncytial virus (principal)

== ENCOUNTER → 2024-07-19 15:01 | Outpatient (BNVA) | payer OTHER, SELFPAY | PROVIDERS: PCP Internal Medicine; Visit Provider Nurse Practitioner Family | DX: J20.5 Acute bronchitis due to respiratory syncytial virus (principal) | CPT/HCPCS: 99212 ==

== ENCOUNTER 2024-08-06 12:41 | Outpatient (AMB) | payer OTHER, SELFPAY ==
--- NOTE | 2024-08-06 13:31 | MHC.OFFWIV ---
Intake Vital Signs 08/06/24 13:32 Height 5 ft 6 in Weight 253 lb BMI 40.8 BP 124/90 H Blood Pressure Location Lt brachial Position Sitting Pulse 84 Pulse Source Pulse Oximeter Temp 100 F Temp Source Oral Pulse Oximetry (%) 96 Oxygen Delivery Method Room Air Intake Visit Reasons: EP flu symptoms/exposed to flu Intake Note: Patient here for SOB, cough, body aches and fevers that started Tuesday Patient Tobacco Use Status: Never used Tobacco Allergies amoxicillin Allergy (Unknown, Verified 08/06/24 13:33) hives hydromorphone [Dilaudid] Adverse Reaction (Unknown, Verified 08/06/24 13:33) makes her sick Environmental Allergy (Unknown, Uncoded 08/06/24 13:33) Unknown Do you need a note to return to daycare/school/sports/work: No HPI HPI Comments History of Present Illness Details History - The patient is a 49-year-old female presenting with symptoms suggestive of influenza that began last Tuesday. Initial symptoms included a runny nose and scratchy throat, progressing to severe body aches and fevers reaching 104?F by the weekend. The patient experienced difficulty breathing, with desaturation down to 92-93% at home, and diffuse body pain even affecting hair, indicating significant discomfort. Previous emergency care led to imaging that showed severe inflammation treated with IV steroids and magnesium. Current home monitoring has demonstrated persistent fever and sporadic symptomatic exacerbations. The patient has experienced nausea and diarrhea, starting the morning of the visit, and is unable to maintain adequate nutritional intake. The current symptoms surpass those from prior encounters with influenza and RSV. The patient uses a dual nebulizer, humidifiers, and other asthmatic interventions, albeit with limited relief, and renal evaluations have revealed benign cyst and tumor findings, unrelated to the current respiratory issues. Physical Exam General: Cooperative, healthy appearing, uncomfortable and in acute distress Orientation/consciousness: Patient oriented x3 Limitations: No limitations Head: Normal to inspection Ears: Hearing grossly normal bilaterally, external ears normal and TM's normal bilaterally Nose: Normal external nose present, Normal nares present and No nasal discharge present Face and sinus: Normal facial exam and Yes sinuses nontender Mouth: Normal oral and palatal mucosa present and moist mucous membranes Throat: Yes tonsils normal, Yes uvula midline. Posterior oropharynx erythema Eyes: Appearance normal, both eyes and all related structures Neck: Normal visual inspection Respiratory: Expiratory wheeze throughout. Normal respiratory effort, able to speak in complete sentences, Actively coughing, respiratory distress present, not tachypneic, no tripod positioning and no use of accessory muscles Cardiovascular: Regular rate and rhythm. Normal S1 and S2 Skin: No rashes or lesions noted Neuro: Patient oriented x3 Extremities: Normal to inspection and Yes no clubbing, cyanosis or edema PFSH Surgical History History of surgery History of bone marrow donation History of myomectomy History of section Family History Father Neuropathy Diabetes mellitus Mother Afib CVD (cardiovascular disease) Myocardial infarction Brother Leukemia Brother No problems noted. Maternal Grandfather History of heart attack Maternal Grandmother Cancer Alzheimer's disease History of mastectomy Paternal Grandmother History of CVA (cerebrovascular accident) Paternal Grandfather Leukemia Maternal Aunt Ovarian cancer Brother No problems noted. Brother No problems noted. Son No problems noted. Social History Housing: House Alcohol intake: never Patient Tobacco Use Status: Never used Tobacco e-Cigarette/Vaping Use: Never Used service: No Current occupational status: employed Cognitive needs: No Hearing needs: No Vision needs: No Review of Systems Const All systems reviewed & are unremarkable except as noted in HPI and below Physical Exam Vital Signs: Last Vital Signs Temp 100 F 08/06/24 13:32 Pulse 84 08/06/24 13:32 BP 124/90 H 08/06/24 13:32 Pulse Ox 96 08/06/24 13:32 Oxygen Delivery Method Room Air 08/06/24 13:32 BMI result Body Mass Index 40.8 Assessment & Plan Assessment & Plan (1) Lower respiratory infection (e.g., bronchitis, pneumonia, pneumonitis, pulmonitis): Code(s): J22 - Unspecified acute lower respiratory infection Plan: Flu, Covid and RSV testing sent. VSS, pt well appearing, lungs with exp wheeze. I have developed a plan to manage the patient's suspected influenza by prescribing a tapered prednisone regimen starting with a high dose for two days, then reducing to sequentially lower doses over the following days to manage significant inflammation and respiratory distress. The patient should continue using the dual nebulizer every six hours to alleviate breathing difficulty. Management will also include symptomatic relief measures using antipyretics for fever and maintaining hydration. The patient should attempt nutritional intake as tolerated and prioritize rest. It's advised to refrain from regular activities until 24 hours have passed without fever or major symptoms. Careful monitoring for symptom resolution within the typical influenza duration is recommended, given the presented symptoms exceed what was previously encountered with influenza and RSV. Patient was informed and verbally consented to the use of an ambient scribe for clinic note documentation during this visit Orders: Orders SARS-CoV2/FLU/RSV Today R09.89 - Other specified symptoms and signs involving the circulatory and respiratory systems Medications: New prednisone On days 1&2, take 3 tablets with breakfast. On days 3&4 take 2 tablets with breakfast, on days 5&6 take 1 tablet with breakfast 20 mg PO daily 12 tabs 0RF Coding Level of Care Code Est Pt Level 3 (84124) Diagnoses Lower respiratory infection (e.g., bronchitis, pneumonia, pneumonitis, pulmonitis) J22
[2024-08-06 13:32] VITALS: BP 124/90; PULSE 84; TEMP 37.7; O2SAT 96; BMI 40.8
== END 2024-08-06 14:12 | disposition home or self-care (01) ==
PROVIDERS: PCP Internal Medicine; Visit Provider Physician Assistant
DX: J22 Unspecified acute lower respiratory infection (principal)

== ENCOUNTER 2024-08-06 12:41 | Outpatient (REF) | payer OTHER, SELFPAY ==
--- OUTSIDE RECORDS SUMMARY | 2024-08-06 15:10 | XMS_ITS | Encounter Summary ---
Author Organization [facility], Address [address] [address] Phone Care Team Providers Care Coal Hiker Name Role Phone Shannan Mcnulty MD Primary Care Provider [phone] Reason for Visit * Reason Comments Med Refill Encounter Details Date Type Department Care Team (Late st Contact Info) Description 04/07/2020 Refill [facility] [address] [place] [address] Evens Koch MD [address] [place] [address] [place] [phone] Social History Tobacco Use Types Packs/Day Years Used Date Smoking Tobacco: Never Alcohol Use Standard Drinks/Week Comments No 0 (1 standard drink = 0.6 oz pur e alcohol) Comments Unknown Sex and Gender Information Value Date Recorded Sex Assigned at Not on file Legal Sex Female 4:35 PM EST Gender Identity Not on file Sexual Orientation Not on file documented as of this encounter Plan of Treatment Not on file documented as of this encounter Visit Diagnoses Not on filedocumented in this encounter Care Teams Coal Hiker Relationship Specialty Start Date End Date Shannan Mcnulty MD [facility] [place] [address] PCP - General Internal Medicine 01/05/24 documented as of this encounter
--- OUTSIDE RECORDS SUMMARY | 2024-08-06 15:10 | XMS_ITS | Encounter Summary ---
Author Organization [facility] Address [address] [place] [address] Phone Care Team Providers Care Horse Rancher Name Role Phone Shannan Mcnulty MD Primary Care Provider [phone] Encounter Details Date Type Department Care Team (Late st Contact Info) Description 07/26/2024 Telephone [facility], [address] [place] [phone] Neena Andrew [address] [place] [phone] Social History Tobacco Use Types Packs/Day Years [...] on file documented as of this encounter Miscellaneous Notes * Telephone Encounter - Lucille Conrad - 07/26/2024 3:51 PM EST Requested records from [facility]. Will scan to chart once they arrive. * Telephone Encounter - Neena Andrew - 07/26/2024 9:43 AM EST Nadia Leyva called to cx appt because she's sick and will call back when she feels better. She reported Ct scan and lab work done at [facility] last week. Thanks documented in this encounter Plan of Treatment Not on file documented as of this encounter Visit Diagnoses Not on filedocumented in this encounter Care Teams Horse Rancher Relationship Specialty Start Date End Date Shannan Mcnulty MD [address] [place] [id number] PCP - General Internal Medicine 01/05/24 documented as of this encounter
--- OUTSIDE RECORDS SUMMARY | 2024-08-06 15:10 | XMS_ITS | Encounter Summary ---
Author Organization [facility] Address [address] [place] [address] Phone Care Team Providers Care Wood Scrap Handler Name Role Phone Shannan Mcnulty MD Primary Care Provider [phone] Encounter Details Date Type Department Care Team (Late st Contact Info) Description 04/05/2024 Documentation Only [facility], [address] [place] [address] Lucille Conrad [address] [place] [phone] Social History Tobacco Use Types Packs/Day Years [...] on filedocumented in this encounter Care Teams Wood Scrap Handler Relationship Specialty Start Date End Date Shannan Mcnulty MD [address] [place] [id number] PCP - General Internal Medicine 01/05/24 documented as of this encounter
--- OUTSIDE RECORDS SUMMARY | 2024-08-06 15:10 | XMS_ITS | Encounter Summary ---
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 Name Role Phone Shannan Mcnulty MD Primary Care Provider [phone] Reason for Visit * Reason Comments Shortness of Breath +RSV last week - sen t in by PCP today after completing round of solumedrol, had out patient xray and uncertain of result Encounter Details Date Type Department Care Team (Late st Contact Info) Description 07/19/2024 9:00 PM EST - 07/20/2024 1:12 AM EST Emergency [facility] Emergency [address] [place] [id number] Dyspnea, unspecified type (Primary Dx); Mild intermittent asthma with exacerbation Discharge Disposition: Home or Self Care Social History Tobacco Use Types Packs/Day Years Used Date Smoking Tobacco: Never Alcohol Use Standard Drinks/Week Comments No 0 (1 standard drink = 0.6 oz pur e alcohol) Comments Unknown Sex and Gender Information Value Date Recorded Sex Assigned at Not on file Legal Sex Female 10:22 PM EST Gender Identity Not on file Sexual Orientation Not on file documented as of this encounter Last Filed Vital Signs Vital Sign Reading Time Taken Comments Blood Pressure 161/86 07/20/2024 12:27 AM EST Pulse 70 07/20/2024 12:27 AM EST Temperature 36.8 ??C (98.2 ??F) 07/20/2024 12:[address] Respiratory Rate 18 07/20/2024 12:29 AM EST Oxygen Saturation 95% 07/20/2024 12:27 AM EST Inhaled Oxygen Concentration - - Weight 114 kg (252 lb) 07/19/2024 4:28 PM EST Height 167.6 cm (5' 6 ) 07/19/2024 4:28 PM EST Body Mass Index 40.67 07/19/2024 4:28 PM EST documented in this encounter Functional Status * Are you deaf or do you have serious difficulty hearing? Answer Date of Assessment Author No 07/19/2024 9:13 PM EST Isabella Bain RN * Are you blind or do you have serious difficulty seeing, even when wearing glasses? Answer Date of Assessment Author No 07/19/2024 9:13 PM EST Isabella Bain RN * Do you have serious difficulty walking or climbing stairs? Answer Date of Assessment Author No 07/19/2024 9:13 PM EST Isabella Bain RN * Do you have serious difficulty dressing or bathing? Answer Date of Assessment Author No 07/19/2024 9:13 PM EST Isabella Bain RN * Because of a physical, mental, or emotional condition, do you have serious difficulty doing errandsalone such as visiting the doctor? Answer Date of Assessment Author No 07/19/2024 9:13 PM Isabella Lo RN documented as of this encounter Mental Status * Because of a physical, mental, or emotional condition, do you have serious difficulty concentrating, remembering, or making decisions? (5 years old or older) Answer Entry Date Author No 07/19/2024 9:13 PM Isabella Lo RN documented in this encounter Discharge Instructions * Discharge Instructions* KELSI Muniz - 07/20/2024 12:36 AM EST Your lab work today did not show significant concerning findings CAT scan of your chest did not show any evidence of blood clot, pneumonia, or fluid buildup as we discussed Take prednisone as prescribed Follow up with your primary provider. Call tomorrow for appointment. Return to Emergency Department if symptoms worsen, don't improve, or any other concern. Get well soon! Thank you for coming to the [facility] Emergency Department today. Our entire team works together to provide you with the best care possible. Examination and treatment you received in the emergency department has been rendered on an EMERGENCY basis only. It is not intended to be a substitute for or an effort to provide complete medical care. You should follow-up with your primary care provider. Please report to your physician any new or remaining problems, because it is impossible to recognize and treat all elements of injury or illness in a single emergency department visit. In the event that you're unable to obtain a followup appointment in a timely fashion, OR you are not getting any better, OR you are getting worse, OR you develop any symptoms of concern, please return here immediately for further evaluation. The emergency department is open 24 hours a day, 7 days aweek. Your discharge report is based on information that was available when you were in the emergency department. * Attachments The following attachments cannot be sent through Care Everywhere. * Asthma: General Info (Pashto) documented in this encounter Medications at Time of Discharge budesonide-formot Linda (SYMBICORT) 160-4.5 mcg/actuation inhaler Inhale 2 puffs by mouth 2 (two) times a day. Rinse mouth with water after use to reduce aftertaste and incidence of candidiasis. Do not swallow. hydroCHLOROthiazi de (HYDRODIURIL) 25 mg tablet Take 1 tablet (25 mg total) by mouth 1 (one) time each day. loratadine (CLARITIN REDITABS) 10 mg dispersible tablet Dissolve 1 tablet (10 mg total) on top of the tongue 1 (one) time each day. losartan (COZAAR) 50 mg tablet Take 1 tablet (50 mg total) by mouth 1 (one) time each day. metoprolol tartrate (LOPRESSOR) 50 mg tablet Take 1 tablet (50 mg total) by mouth 2 (two) times a day. predniSONE (DELTASONE) 20 mg tablet Take 60 mg (3 tablets) for 3 days, then 40 mg (2 tablets) for 3 days, then 20 mg (1 tablet) for 3 days 18 tablet 07/20/2024 documented as of this encounter Ordered Prescriptions Prescription Sig Dispense Quantity Refills Last Filled Start Date End Date predniSONE (DELTASONE) 20 mg tablet Take 60 mg (3 tablets) for 3 days, then 40 mg (2 tablets) for 3 days, then 20 mg (1 tablet) for 3 days 18 tablet 07/20/2024 07/30/2024 documented in this encounter Discharge Disposition Disposition Code Departure Means Destination Comment s Home or Self Care documented in this encounter Progress Notes * Val Sy RN - 07/19/2024 4:27 PM EST PT was diagnosed with RSV last week. PCP put her on a medrol pack and had an out patient xray. PT states my doctor is sure what they saw on it . PT states cough is productive and the mucous is brown. * KELSI Muniz - 07/19/2024 4:24 PM EST Emergency Medicine Note Patient Name: Nadia Kimball Initial Evaluation: 07/19/2024 : 1975 Patient's PCP: Shannan Mcnulty MD Emergency Physician: KELSI Muniz History of Present Illness Chief Complaint: Chief Complaint Patient presents with Shortness of Breath +RSV last week - sent in by PCP today after completing round of solumedrol, had out patient xray and uncertain of result HPI: This is a 49-year-old female with a past medical history of asthma and anxiety presenting for evaluation of continued nonproductive cough, shortness of breath and wheezing. She was diagnosed with RSV last week after her son had similar symptoms. She took a course of prednisone and then received a Z-Diego and was ultimately put on a Medrol Dosepak. She states she has had 2 chest x-rays, unsure of the results though states her primary care doctor was concerned for potential scarring secondary to previous COVID that she has had versus pneumonia She denies any recent travel or surgery. She denies any leg pain or swelling. ROS: I have performed a ROS with the pertinent positives and negatives documented in the history ofpresent illness. Previous History No past medical history on file. No past surgical history on file. Social History Tobacco Use Smoking status: Never Substance Use Topics Alcohol use: No Drug use: No Family History Problem Relation Name Age of Onset Other cancer Brother ALL; Breast cancer Maternal Grandmother Heart attack Mother at age 51; smoker Diabetes Maternal Grandmother Diabetes Maternal Grandfather Thyroid disease Mother is allergic to dilaudid [hydromorphone] and penicillins. No current facility-administered medications on file prior to encounter. Current Outpatient Medications on File Prior to Encounter Medication Sig Dispense Refill budesonide-formoteroL (SYMBICORT) 160-4.5 mcg/actuation inhaler Inhale 2 puffs by mouth 2 (two) times a day. Rinse mouth with water after use to reduce aftertaste and incidence of candidiasis. Do notswallow. hydroCHLOROthiazide (HYDRODIURIL) 25 mg tablet Take 1 tablet (25 mg total) by mouth 1 (one) time each day. hydrOXYzine HCL (ATARAX) 10 mg tablet Take 1 tablet (10 mg total) by mouth every 6 (six) hours if needed for anxiety for up to 10 days. 12 tablet 0 loratadine (CLARITIN REDITABS) 10 mg dispersible tablet Dissolve 1 tablet (10 mg total) on top of the tongue 1 (one) time each day. losartan (COZAAR) 50 mg tablet Take 1 tablet (50 mg total) by mouth 1 (one) time each day. metoprolol tartrate (LOPRESSOR) 50 mg tablet Take 1 tablet (50 mg total) by mouth 2 (two) times a day. Physical Exam ED Triage Vitals Temp Heart Rate Resp BP 07/19/24 1628 07/19/24 1628 07/19/24 1628 07/19/24 1628 36.9 ??C (98.4 ??F) 79 18 (!) 199/99 SpO2 Temp Source Heart Rate Source Patient Position 07/19/24 1628 07/19/24 1628 -- 07/19/24 1628 95 % Oral Sitting BP Location FiO2 (%) 07/19/245 -- Left arm General: Anxious but well-appearing, well nourished, in no acute distress HEENT: PERRL, EOMI, external ears and nose appear unremarkable, airway is patent Neck: Supple, full range of motion Chest: Diffuse expiratory wheezing Circulatory: RRR, extremities well perfused Abdomen: Non-distended, Non-Tender Extremities: Normal ROM, No edema Skin: Warm and dry Neuro: Alert and oriented, no focal deficits Results Labs Reviewed BASIC METABOLIC PANEL - Abnormal Result Value Sodium 134 Potassium 3.7 Chloride 100 CO2 26 Anion Gap 8 Glucose 178 (*) BUN 18 Creatinine 0.76 eGFR 96 BUN/Creatinine Ratio 23.7 Calcium 8.9 CBC WITH AUTO DIFFERENTIAL - Abnormal WBC 15.6 (*) RBC 5.10 (*) Hemoglobin 14.9 Hematocrit 45.5 MCV 88.9 MCH 29.1 MCHC 32.7 RDW 13.3 Platelets 321 MPV 10.4 NRBC 0.0 NRBC Absolute 0.00 Neutrophils Relative 77.9 Lymphocytes Relative 13.1 Monocytes Relative 3.7 Eosinophils Relative 0.2 Basophils Relative 0.7 Immature Granulocytes Relative 4.4 Neutrophils Absolute 12.14 (*) Lymphocytes Absolute 2.05 Monocytes Absolute 0.58 Eosinophils Absolute 0.03 Basophils Absolute 0.11 Immature Granulocytes Absolute 0.68 (*) TROPONIN I HIGH SENSITIVITY - Normal High Sensitivity Troponin I 5 Narrative: High levels of biotin in samples may falsely decrease hsTroponin values. Use caution when interpreting hsTroponin results in patients taking biotin who exhibit renal impairment (eGFR <60) or in patients taking more than 20 mg/day of biotin. TROPONIN I HIGH SENSITIVITY - Normal High Sensitivity Troponin I 6 Narrative: High levels of biotin in samples may falsely decrease hsTroponin values. Use caution when interpreting hsTroponin results in patients taking biotin who exhibit renal impairment (eGFR <60) or in patients taking more than 20 mg/day of biotin. CBC AND DIFFERENTIAL Narrative: The following orders were created for panel order CBC and differential. Procedure Abnormality Status --------- ------ CBC auto differential[[id number]] Abnormal Final result Please view results for these tests on the individual orders. Abnormal Labs Reviewed BASIC METABOLIC PANEL - Abnormal; Notable for the following components: Result Value Glucose 178 (*) All other components within normal limits CBC WITH AUTO DIFFERENTIAL - Abnormal; Notable for the following components: WBC 15.6 (*) RBC 5.10 (*) Neutrophils Absolute 12.14 (*) Immature Granulocytes Absolute 0.68 (*) All other components within normal limits CT Angio Chest wo and/or w Contrast Final Result 1. No pulmonary emboli. This document has been electronically signed by: Hussein Hernandez MD on 07/19/2024 23:41:45 XR Chest 2 Views (Results Pending) I have discussed the incidental/abnormal imaging and/or lab abnormalities with the patient and haveinstructed them the need for further evaluation and workup with their primary care doctor. I have provided the patient with a paper copy of the abnormality. The laboratory results, imaging results and other diagnostic exam results were reviewed in the EMR. EKG Interpretation Critical Care Time None ? Medical Decision Making Medications methylPREDNISolone sodium succ (SOLU-Medrol) injection 125 mg (125 mg intravenous Given 07/19/242211) LORazepam (ATIVAN) injection 0.5 mg (0.5 mg intravenous Given 07/19/242211) ipratropium-albuteroL (DUONEB) 0.5-2.5 mg/3 mL nebulizer solution 3 mL (3 mL nebulization Given 07/19/242211) magnesium sulfate 2 gram/50 mL (4 %) IVPB 2 g (0 g intravenous Stopped 07/20/2430) sodium chloride 0.9 % flush 10 mL (10 mL intravenous Given 07/19/242234) iopamidoL (ISOVUE-370) 370 mg iodine /mL (76 %) injection 90 mL (90 mL intravenous Given 07/19/242234) ED Course as of 07/20/249 TueJul 20, [address] of the chest without any acute concerning findings, patient feeling improved, she was able to ambulate without any tachycardia, tachypnea, increased respiratory effort or hypoxia. She will bedischarged with continued prednisone taper. She will follow-up with her primary care provider. [LQ] ED Course User Index [LQ] KELSI Muniz Clinical Impressions as of 07/20/24 0049 Dyspnea, unspecified type Mild intermittent asthma with exacerbation 07/19/2024 9:16 PM patient seen and evaluated, vitals reviewed, labs ordered prior to my evaluation reviewed show a leukocytosis to 15.6, H&H of 14.9/45.5, BMP is unremarkable aside from a slightly elevated glucose to 178. Her troponins are within normal limits, there is no delta. Her blood pressure is rather elevated, however she is quite anxious, does take medication for her blood pressure took her metoprolol approximately 7 PM in the waiting room this evening. She states that her father recently passed in this emergency department and she feels very stressed being here today. Hematuria starting today will obtain a walking O2 saturation and heart rate. CTA of the chest has been ordered. She will be given Ativan, Benadryl, magnesium and a DuoNeb Procedures Procedures Diagnosis 1. Dyspnea, unspecified type CT Angio Chest wo and/or w Contrast CT Angio Chest wo and/or w Contrast 2. Mild intermittent asthma with exacerbation Disposition Discharge ED Prescriptions Medication Sig Dispense Start Date End Date Auth. Provider predniSONE (DELTASONE) 20 mg tablet Take 60 mg (3 tablets) for 3 days, then 40 mg (2 tablets) for 3days, then 20 mg (1 tablet) for 3 days 18 tablet 07/20/2024 07/30/2024 KELSI Muniz Physician Attestation KELSI Muniz 07/19/24 2140 KELSI Muniz 07/20/24 0049 Cosigned by Cristian Banegas DO at 07/25/2024 3:25 PM EST documented in this encounter Plan of Treatment Not on file documented as of this encounter Procedures Procedure Name Priority Date/Time Associated Diagnosis Comments CT ANGIO CHEST WO AND/OR W CONTRAST STAT 07/19/2024 10:39 PM EST Dyspnea, unspecified type XR CHEST 2 VIEWS STAT 07/19/2024 8:34 PM EST TROPONIN I HIGH SENSITIVITY STAT 07/19/2024 8:22 PM EST TROPONIN I HIGH SENSITIVITY STAT 07/19/2024 4:56 PM EST CBC WITH AUTO DIFFERENTIAL STAT 07/19/2024 4:56 PM EST CBC AND DIFFERENTIAL STAT 07/19/2024 4:56 PM EST BASIC METABOLIC PANEL STAT 07/19/2024 4:56 PM EST ECG 12-LEAD STAT 07/19/2024 4:51 PM EST ECG ANNOTATED 07/19/2024 documented in this encounter Results * CT Angio Chest wo and/or w Contrast (07/19/2024 10:39 PM EST) Anatomical Region Laterality Modality Body Computed Tomogra phy 07/19/2024 11:4 1 PM EST Impressions 07/19/2024 11:41 PM EST 1. No pulmonary emboli. This document has been electronically signed by: Hussein Hernandez MD on 07/19/2024 23:41:45 Narrative 07/19/2024 11:[address] angiography chest with contrast. 3D Postprocessing. Comparison: None Findings: The heart is normal size. RV/LV ratio is normal. The thoracic aorta is normal caliber. No filling defect within the pulmonary arteries to suggest pulmonary embolism. The visualized thyroid and mediastinum are unremarkable. No consolidation or effusion. The upper abdomen is unremarkable. No acute fractures. Procedure Note Hussein Hernandez MD - 07/19/2024 CT angiography chest with contrast. 3D Postprocessing. Comparison: None Findings: The heart is normal size. RV/LV ratio is normal. The thoracic aorta is normal caliber. No filling defect within the pulmonary arteries to suggest pulmonary embolism. The visualized thyroid and mediastinum are unremarkable. No consolidation or effusion. The upper abdomen is unremarkable. No acute fractures. IMPRESSION: 1. No pulmonary emboli. This document has been electronically signed by: Hussein Hernandez MD on 07/19/2024 23:41:[address] PROCEDURES Final Result * XR Chest 2 Views (07/19/2024 8:34 PM EST) Anatomical Region Laterality Modality Body Radiographic Michelle ging 07/20/2024 11:1 7 AM EST Impressions 07/20/2024 11:17 AM EST Normal chest radiographs. -------- FINAL REPORT -------- Dictated By: Ho Pierre Dictated Date: 07/20/2024 11:17 ET Assigned Physician: Ho Pierre Reviewed and Electronically Signed By: Ho Pierre Signed Date: 07/20/2024 11:17 ET Workstation ID: [id number] Transcribed By: Self Edit Transcribed Date: 07/20/2024 11:17 ET Narrative 07/20/2024 11:17 AM EST PROCEDURE: PA and lateral radiographs of the chest. HISTORY: dyspnea. COMPARISON: 10/05/2023. FINDINGS: The heart, mediastinum, lungs, pleural spaces, and bony thorax are normal. Procedure Note Ho Pierre MD - 07/20/2024 PROCEDURE: PA and lateral radiographs of the chest. HISTORY: dyspnea. COMPARISON: 10/05/2023. FINDINGS: The heart, mediastinum, lungs, pleural spaces, and bony thorax arenormal. IMPRESSION: Normal chest radiographs. -------- FINAL REPORT -------- Dictated By: Ho Pierre Dictated Date: 07/20/2024 11:17 ET Assigned Physician: Ho Pierre Reviewed and Electronically Signed By: Ho Pierre Signed Date: 07/20/2024 11:17 ET Workstation ID: [id number] Transcribed By: Self Edit Transcribed Date: 07/20/2024 11:17 ET Jemal Camacho MD IMG XR PROCEDURES Final Result * Troponin I high sensitivity (07/19/2024 8:22 PM EST) High Sensitivity Troponin I 6 <=54 ng/L LAB CHEMISTRY METHOD 07/19/2024 9:22 PM EST [facility] Blood Venous blood specimen / Unknown Venipuncture / Unknown 07/19/2024 8:22 PM EST 07/19/2024 8:55 PM EST Narrative [facility] - 07/19/2024 9:22 PM EST High levels of biotin in samples may falsely decrease hsTroponin values. ??Use caution when interpreting hsTroponin results in patients taking biotin who exhibit renal impairment (eGFR <60) or in patients taking more than 20 mg/day of biotin. Jemal Camacho MD LAB BLOOD ORDERABLES Final Resu lt [facility] [address] [place] [address], [place] [phone] * (ABNORMAL) CBC auto differential (07/19/2024 4:56 PM EST) WBC 15.6(H) 4.8 - 10.8 K/mcL LAB HEMETOLOGY METHOD 07/19/2024 5:21 PM EST [facility] RBC 5.10(H) 3.80 - 4.80 M/mcL LAB HEMETOLOGY METHOD 07/19/2024 5:21 PM [facility] Hemoglobin 14.9 11.5 - 16.0 g/dL LAB HEMETOLOGY METHOD 07/19/2024 5:21 PM EST [facility] Hematocrit 45.5 35.0 - 47.0 % LAB HEMETOLOGY METHOD 07/19/2024 5:21 PM EST [facility] MCV 88.9 79.0 - 98.0 FL LAB HEMETOLOGY METHOD 07/19/2024 5:21 PM [facility] MCH 29.1 27.0 - 32.0 pcg LAB HEMETOLOGY METHOD 07/19/2024 5:21 PM EST [facility] MCHC 32.7 32.0 - 37.0 g/dL LAB HEMETOLOGY METHOD 07/19/2024 5:21 PM [facility] RDW 13.3 11.0 - 15.0 % LAB HEMETOLOGY METHOD 07/19/2024 5:21 PM [facility] Platelets 321 130 - 400 K/mcL LAB HEMETOLOGY METHOD 07/19/2024 5:21 PM [facility] MPV 10.4 7.0 - 11.0 FL LAB HEMETOLOGY METHOD 07/19/2024 5:21 PM [facility] NRBC 0.0 <1.0 % LAB HEMETOLOGY METHOD 07/19/2024 5:21 PM [facility] NRBC Absolute 0.00 <0.10 K/mcL LAB HEMETOLOGY METHOD 07/19/2024 5:21 PM [facility] Neutrophils Relative 77.9 % LAB HEMETOLOGY METHOD 07/19/2024 5:21 PM [facility] Lymphocytes Relative 13.1 % LAB HEMETOLOGY METHOD 07/19/2024 5:21 PM [facility] Monocytes Relative 3.7 % LAB HEMETOLOGY METHOD 07/19/2024 5:21 PM [facility] Eosinophils Relative 0.2 % LAB HEMETOLOGY METHOD 07/19/2024 5:21 PM [facility] Basophils Relative 0.7 % LAB HEMETOLOGY METHOD 07/19/2024 5:21 PM [facility] Immature Granulocytes Relative 4.4 % LAB HEMETOLOGY METHOD 07/19/2024 5:21 PM [facility] Neutrophils Absolute 12.14(H) 1.50 - 7.00 K/mcL LAB HEMETOLOGY METHOD 07/19/2024 5:21 PM [facility] Lymphocytes Absolute 2.05 1.00 - 5.00 K/mcL LAB HEMETOLOGY METHOD 07/19/2024 5:21 PM [facility] Monocytes Absolute 0.58 0.20 - 1.00 K/mcL LAB HEMETOLOGY METHOD 07/19/2024 5:21 PM [facility] Eosinophils Absolute 0.03 0.00 - 0.50 K/mcL LAB HEMETOLOGY METHOD 07/19/2024 5:21 PM [facility] Basophils Absolute 0.11 0.00 - 0.20 K/mcL LAB HEMETOLOGY METHOD 07/19/2024 5:21 PM EST [facility] Immature Granulocytes Absolute 0.68(H) 0.00 - 0.03 K/mcL LAB HEMETOLOGY METHOD 07/19/2024 5:21 PM EST [facility] Blood Venous blood specimen / Unknown Venipuncture / Unknown 07/19/2024 4:56 PM EST 07/19/2024 5:12 PM EST Jemalsabi Camacho MD LAB BLOOD ORDERABLES Final Resu lt Performing Organization Address [facility]/ZIP Co de Phone Number [facility] [address] [place] [address], [place] [phone] * Troponin I high sensitivity (07/19/2024 4:56 PM EST) [facility] High Sensitivity Troponin I 5 <=54 ng/L LAB CHEMISTRY METHOD 07/19/2024 5:46 PM EST [facility] Blood Venous blood specimen / Unknown Venipuncture / Unknown 07/19/2024 4:56 PM EST 07/19/2024 5:12 PM EST Narrative [facility] - 07/19/2024 5:46 PM EST High levels of biotin in samples may falsely decrease hsTroponin values. ??Use caution when interpreting hsTroponin results in patients taking biotin who exhibit renal impairment (eGFR <60) or in patients taking more than 20 mg/day of biotin. us Jemal Camacho MD LAB BLOOD ORDERABLES Final Resu lt Performing Organization Address City/[facility]/ZIP Co de Phone Number [facility] [address] [place] [address], [place] [phone] * (ABNORMAL) Basic metabolic panel (07/19/2024 4:56 PM EST) Sodium 134 133 - 145 mmol/L LAB CHEMISTRY METHOD 07/19/2024 5:43 PM [facility] Potassium 3.7 3.5 - 5.5 mmol/L LAB CHEMISTRY METHOD 07/19/2024 5:43 PM [facility] Chloride 100 96 - 110 mmol/L LAB CHEMISTRY METHOD 07/19/2024 5:43 PM [facility] CO2 26 21 - 32 mmol/L LAB CHEMISTRY METHOD 07/19/2024 5:43 PM [facility] Anion Gap 8 3 - 11 LAB CHEMISTRY METHOD 07/19/2024 5:43 PM [facility] Glucose 178(H) 70 - 100 mg/dL LAB CHEMISTRY METHOD 07/19/2024 5:43 PM [facility] BUN 18 5 - 25 mg/dL LAB CHEMISTRY METHOD 07/19/2024 5:43 PM [facility] Creatinine 0.76 0.50 - 1.10 mg/dL LAB CHEMISTRY METHOD 07/19/2024 5:43 PM [facility] eGFR 96 >=60 mL/min/1. 73m2 LAB CHEMISTRY METHOD 07/19/2024 5:43 PM [facility] Comment:Calculation based on the??Chronic Kidney Disease Epidemiology Collaboration (CKD-EPI) equation refit??without adjustment for race. BUN/Creatinine Ratio 23.7 LAB CHEMISTRY METHOD 07/19/2024 5:43 PM [facility] Calcium 8.9 8.5 - 10.5 mg/dL LAB CHEMISTRY METHOD 07/19/2024 5:43 PM [facility] Blood Venous blood specimen / Unknown Venipuncture / Unknown 07/19/2024 4:56 PM EST 07/19/2024 5:12 PM EST us Jemalsabi Camacho MD LAB BLOOD ORDERABLES Final Resu lt [facility] [address] [place] [address], * ECG 12 lead (07/19/2024 4:51 PM EST) Ventricular Rate ECG 74 BPM GEMUSE Atrial Rate 74 BPM GEMUSE P-R Interval 176 ms GEMUSE QRS Duration 94 ms GEMUSE Q-T Interval 416 ms GEMUSE QTc 461 ms GEMUSE P Wave [place] 16 degrees GEMUSE R [place] 18 degrees GEMUSE T [place] 76 degrees GEMUSE ECG Interpretation Normal sinus rhythm Possible Inferior infarct (cited on or before 04-OCT-2022) Abnormal ECG When compared with ECG of 04-OCT-2022 10:27, TX interval has decreased Confirmed by CRISTIAN CAIN ([id number]) on 07/21/2024 11:05:08 AM GEMUSE 07/19/2024 4:51 PM EST 07/21/2024 11:05 AM EST Jemal Camacho MD ECG ORDERABLES Final Result GEMUSE * ECG-Annotated (07/19/2024) Provider Onbase ECG ORDERABLES Final Result documented in this encounter Visit Diagnoses Diagnosis Dyspnea, unspecified type- Primary Mild intermittent asthma with exacerbation Unspecified asthma, with exacerbation documented in this encounter Administered Medications Inactive Administered Medications - up to 3 most recent administrations Medication Order MAR Action Action Date Dose Rate Site iopamidoL (ISOVUE-370) 370 mg iodine /mL (76 %) injection 90 mL 90 mL, intravenous, Once in imaging, Starting on Leela 07/19/24 at 2219, For 1 dose Given 07/19/2024 10:35 PM EST 90 mL ipratropium-albuteroL (DUONEB) 0.5-2.5 mg/3 mL nebulizer solution 3 mL 3 mL, nebulization, Once, On Leela 07/19/24 at 2123, For 1 dose Given 07/19/2024 10:12 PM EST 3 mL LORazepam (ATIVAN) injection 0.5 mg 0.5 mg, intravenous, Once, On Leela 07/19/24 at 2145, For 1 dose, Prior to IV use, lorazepam injection should be DILUTED with an equal volume of compatible solution; Rate of administration should NOT exceed 2 mg/min. Given 07/19/2024 10:12 PM EST 0.5 mg magnesium sulfate 2 gram/50 mL (4 %) IVPB 2 g 2 g, intravenous, at 25 mL/hr, Administer over 2 Hours, Once, On Leela 07/19/24 at 2145, For 1 dose New Bag 07/19/2024 10:12 PM EST 2 g 25 mL/hr methylPREDNISolone sodium succ (SOLU-Medrol) injection 125 mg 125 mg, intravenous, Once, On Leela 07/19/24 at 2123, For 1 dose, Reconstitute each 125 mg vial with 2 mL sterile water for injection to a concentration of 62.5 mg/mL. Given 07/19/2024 10:12 PM EST 125 mg sodium chloride 0.9 % flush 10 mL 10 mL, intravenous, Once, On Leela 07/19/24 at 2220, For 1 dose Given 07/19/2024 10:35 PM EST 10 mL documented in this encounter Active and Recently Administered Medications Times are shown in EST. Scheduled Medication Order 07/18/2024 07/19/2024 07/20/2024 iopamidoL (ISOVUE-370) 370 mg iodine /mL (76 %) injection 90 mL (COMPLETED) 90 mL, intravenous, Once in imaging, Starting on Leela 07/19/24 at 221, For 1 dose 2234 (Given - Provider: Ange Steven) ipratropium-albuteroL (DUONEB) 0.5-2.5 mg/3 mL nebulizer solution 3 mL (COMPLETED) 3 mL, nebulization, Once, On Leela 07/19/24 at 2123, For 1 dose 2211 (Given - Provider: Arlette Bain RN) LORazepam (ATIVAN) injection 0.5 mg (COMPLETED) 0.5 mg, intravenous, Once, On Leela 07/19/24 at 2145, For 1 dose, Prior to IV use, lorazepam injection should be DILUTED with an equal volume of compatible solution; Rate of administration should NOT exceed 2 mg/min. 2211 (Given - Provider: Arlette Bain RN) magnesium sulfate 2 gram/50 mL (4 %) IVPB 2 g (COMPLETED) 2 g, intravenous, at 25 mL/hr, Administer over 2 Hours, Once, On Leela 07/19/24 at 2145, For 1 dose 221 (New Bag - Provider: Arlette Bain RN) 003 (Stopped - Provider: Arlette Bain RN) methylPREDNISolone sodium succ (SOLU-Medrol) injection 125 mg (COMPLETED) 125 mg, intravenous, Once, On Leela 07/19/24 at 2123, For 1 dose, Reconstitute each 125 mg vial with 2 mL sterile water for injection to a concentration of 62.5 mg/mL. 221 (Given - Provider: Arlette Bain RN) sodium chloride 0.9 % flush 10 mL (COMPLETED) 10 mL, intravenous, Once, On Leela 07/19/24 at 2220, For 1 dose 2219 (Not Given - Provider: Arlette Bain RN - Reason: Other - Comment: mag running)2234 (Given - Provider: Ange Steven) documented in this encounter Orders Nursing Count Last Ordered Date First Orde red Date CHECK PULSE OXIMETRY WHILE AMBULATING 1 IV Count Last Ordered Date First Orde red Date INSERT PERIPHERAL IV 07/19/2024 documented in this encounter Care Teams Machine Leather Trimmer Relationship Specialty Start Date End Date Shannan Mcnulty MD [address] [place] [phone] PCP - General Internal Medicine 06/16/24 documented as of this encounter
--- OUTSIDE RECORDS SUMMARY | 2024-08-06 15:10 | XMS_ITS | Encounter Summary ---
Author Organization [facility] [place], Address [address] [place] [address] Phone Care Team Providers Care Helper Driver Name Role Phone Shannan Mcnulty MD Primary Care Provider [phone] Reason for Visit * Reason Comments Med Refill Encounter Details Date Type Department Care Team (Late st Contact Info) Description 06/14/2024 Refill [facility] [place] [facility] [address] [place] [phone] Niels Nagy MD [address] [place] [phone] Social History Tobacco Use Types Packs/Day Years [...] on filedocumented in this encounter Care Teams Helper Driver Relationship Specialty Start Date End Date Shannan Mcnulty MD [facility] [place] [address] PCP - General Internal Medicine 01/05/24 documented as of this encounter
--- OUTSIDE RECORDS SUMMARY | 2024-08-06 15:10 | XMS_ITS | Encounter Summary ---
Author Organization [facility] [place], Address [address] [address] Phone Care Team Providers Care Chief Telephone Operator Name Role Phone Shannan Mcnulty MD Primary Care Provider [phone] Reason for Visit * Reason Comments Med Refill Encounter Details Date Type Department Care Team (Late st Contact Info) Description 04/15/2020 [facility]ill [facility] [address] [place] [address] Evens Koch MD [address] [place] [address] [place] [address] Social History Tobacco Use Types Packs/Day Years [...] on filedocumented in this encounter Care Teams Chief Telephone Operator Relationship Specialty Start Date End Date Shannan Mcnulty MD [facility] [place] [address] PCP - General Internal Medicine 01/05/24 documented as of this encounter
--- OUTSIDE RECORDS SUMMARY | 2024-08-06 15:10 | XMS_ITS | Encounter Summary ---
Author Organization [facility] [place], Address [address] [address] Phone Care Team Providers Care Director Of Entertainment Name Role Phone Shannan Mcnulty MD Primary Care Provider [phone] Reason for Visit * Reason Comments Med Refill Encounter Details Date Type Department Care Team (Late st Contact Info) Description 05/18/2020 [facility] [address] [place] [address] Evens Koch MD [address] [place] [address] [place] [address] Social History Tobacco Use Types Packs/Day Years [...] on filedocumented in this encounter Care Teams Director Of Entertainment Relationship Specialty Start Date End Date Shannan Mcnulty MD [facility] [place] [address] PCP - General Internal Medicine 01/05/24 documented as of this encounter
--- OUTSIDE RECORDS SUMMARY | 2024-08-06 15:10 | XMS_ITS | Encounter Summary ---
Author Organization [facility] [place], Address [address] [address] Phone Care Team Providers Care Manager Test Name Role Phone Shannan Mcnulty MD Primary Care Provider [phone] Reason for Visit * Reason Comments Med Refill Encounter Details Date Type Department Care Team (Late st Contact Info) Description 07/02/2019 Refill [facility] [address] [place] [address] Evens Koch MD [address] [place] [address] [place] [address] Social History Tobacco Use Types Packs/Day Years [...] on filedocumented in this encounter Care Teams Manager Test Relationship Specialty Start Date End Date Shannan Mcnulty MD [place] [address] PCP - General Internal Medicine 01/05/24 documented as of this encounter
--- OUTSIDE RECORDS SUMMARY | 2024-08-06 15:10 | XMS_ITS | Encounter Summary ---
Author Organization [facility] [place], Address [address] [place] [address] Phone Care Team Providers Care Patient Ombudsperson Name Role Phone Shannan Mcnulty MD Primary Care Provider [phone] Reason for Visit * Reason Comments Med Refill Encounter Details Date Type Department Care Team (Late st Contact Info) Description 09/21/2020 Refill [facility] [address] [place] [address] Niels Nagy MD [address] [place] [address] [place] [address] Social History Tobacco Use Types Packs/Day Years [...] on filedocumented in this encounter Care Teams Patient Ombudsperson Relationship Specialty Start Date End Date Shannan Mcnulty MD [facility] [place] [address] PCP - General Internal Medicine 01/05/24 documented as of this encounter
--- OUTSIDE RECORDS SUMMARY | 2024-08-06 15:10 | XMS_ITS | Encounter Summary ---
Author Organization [facility] [place], Address [address] [address] Phone Care Team Providers Care Research Clerk Name Role Phone Shannan Mcnulty MD Primary Care Provider [phone] Reason for Visit * Reason Comments Med Refill Encounter Details Date Type Department Care Team (Late st Contact Info) Description 07/15/2020 Refill [facility] [address] [place] [address] Evens Koch MD [address] [place] [address] [place] [phone] Social History Tobacco Use Types Packs/Day Years [...] on filedocumented in this encounter Care Teams Research Clerk Relationship Specialty Start Date End Date Shannan Mcnulty MD [facility] [address] PCP - General Internal Medicine 01/05/24 documented as of this encounter
--- OUTSIDE RECORDS SUMMARY | 2024-08-06 15:10 | XMS_ITS | Encounter Summary ---
Author Organization [facility] Address [address] [place] [address] Phone Care Team Providers Care Ammunition Storage Superintendent Name Role Phone Shannan Mcnulty MD Primary Care Provider [phone] Encounter Details Date Type Department Care Team (Late st Contact Info) Description 07/24/2024 Documentation Only [facility] [place], [address] [place] [address] Lucille Conrad [address] [place] [phone] Social History Tobacco Use Types Packs/Day Years [...] on filedocumented in this encounter Care Teams Ammunition Storage Superintendent Relationship Specialty Start Date End Date Shannan Mcnulty MD [address] [place] [address] PCP - General Internal Medicine 01/05/24 documented as of this encounter
--- OUTSIDE RECORDS SUMMARY | 2024-08-06 15:10 | XMS_ITS | Encounter Summary ---
Author Organization [facility] [place], Address [address] [place] [address] Phone Care Team Providers Care Building Operator Name Role Phone Shannan Mcnulty MD Primary Care Provider [phone] Reason for Visit * Reason Comments Med Refill Encounter Details Date Type Department Care Team (Late st Contact Info) Description 10/01/2020 Refill [facility] [address] [place] [address] Niels Nagy MD [address] [place] [address] [place] [address] Social History Tobacco Use Types Packs/Day Years [...] on filedocumented in this encounter Care Teams Building Operator Relationship Specialty Start Date End Date Shannan Mcnulty MD [facility] [place] [address] PCP - General Internal Medicine 01/05/24 documented as of this encounter
--- OUTSIDE RECORDS SUMMARY | 2024-08-06 15:10 | XMS_ITS | Encounter Summary ---
Author Organization [facility] [place], Address [address] [place] [address] Phone Care Team Providers Care Spinning Frame Cleaner Name Role Phone Shannan Mcnulty MD Primary Care Provider [phone] Reason for Visit * Reason Comments Med Refill Encounter Details Date Type Department Care Team (Late st Contact Info) Description 09/15/2023 Refill [facility] [place] - [facility] [address] [place] [phone] Niels Nagy MD [address] [place] [phone] Social History Tobacco Use Types Packs/Day Years [...] on filedocumented in this encounter Care Teams Spinning Frame Cleaner Relationship Specialty Start Date End Date Shannan Mcnulty MD [facility] [place] [address] PCP - General Internal Medicine 01/05/24 documented as of this encounter
--- OUTSIDE RECORDS SUMMARY | 2024-08-06 15:10 | XMS_ITS | Encounter Summary ---
Author Organization [facility] Address [address] [place] [address] Phone Care Team Providers Care Banquet Pilot Name Role Phone Shannan Mcnulty MD Primary Care Provider [phone] Encounter Details Date Type Department Care Team (Late st Contact Info) Description 01/05/2024 Documentation Only [facility] [place], [address] [place] [address] Lucille Conrad [address] [place] [phone] Social History Tobacco Use Types Packs/Day Years [...] on filedocumented in this encounter Care Teams Banquet Pilot Relationship Specialty Start Date End Date Shannan Mcnulty MD [address] [place] [address] PCP - General Internal Medicine 01/05/24 documented as of this encounter
--- OUTSIDE RECORDS SUMMARY | 2024-08-06 15:11 | XMS_ITS | Encounter Summary ---
Author Organization [facility] [place], Address [address] [place] [address] Phone Care Team Providers Care Blind Escort Name Role Phone Shannan Mcnulty MD Primary Care Provider [phone] Reason for Visit * Reason Comments Med Refill Encounter Details Date Type Department Care Team (Late st Contact Info) Description 12/24/2020 Refill [facility] [address] [place] [address] Niels Nagy MD [address] [place] [address] [place] [address] Social History Tobacco Use Types Packs/Day Years [...] on filedocumented in this encounter Care Teams Blind Escort Relationship Specialty Start Date End Date Shannan Mcnulty MD [facility] [place] [address] PCP - General Internal Medicine 01/05/24 documented as of this encounter
--- OUTSIDE RECORDS SUMMARY | 2024-08-06 15:11 | XMS_ITS | Clinical Summary ---
Author Organization [facility] [place], Address [address] [place] [address] [place] [address] Phone Care Team Providers Care Skein Bander Name Role Phone Shannan Mcnulty MD Primary Care Provider [phone] Allergies Active Allergy Reactions Criticality Noted Date Comments Amoxicillin 09/22/2023 Hydromorphone Other (see comments) 06/06/2019 Medications albuterol HFA (PROVENTIL HFA;VENTOLIN HFA) 108 (90 Base) MCG/ACT inhaler 9 Active SYMBICORT 160-4.5 MCG/ACT inhaler INL 2 PFS PO BID 9 Active fluticasone (FLONASE) 50 MCG/ACT nasal spray 9 Active ipratropium-alb uterol (DUO-NEB) 0.5-2.5 mg/3 mL nebulizer solution INHALE 1 VIAL VIA NEBULIZER Q 6 H 9 Active loratadine (CLARITIN) 10 MG tablet Take 1 tablet by mouth 1 (one) time each day 6 Active omeprazole (PriLOSEC) [address] capsule TAKE 1 CAPSULE BY MOUTH EVERY DAY IN THE MORNING 1 Active LORazepam (ATIVAN) 0.5 MG tablet Take 1 tablet by mouth 1 (one) time each day Active metoprolol succinate XL (TOPROL XL) 50 MG 24 hr tablet Take 1 tablet (50 mg total) by mouth in the morning and 1 tablet (50 mg total) in the evening. For hr. 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 Encounters Date Type Department Care Team Description 07/26/2024 Telephone [facility] [address] [place] [phone] Neena Andrew 07/24/2024 Documentation Only [facility] [address] [place] [address] Lucille Conrad 06/18/2024 Telephone [facility] [address] [place] [address] [place], Lucille 06/14/2024 Refill [facility] [address] [facility] [place] [place] [phone] Niels Nagy MD from Last 3 Months Immunizations Name Administration Dates Next Due DT 05/09/2005 Influenza Split High Dose Preservative Free IM 1 07/21/2014 Influenza, MDCK, PF, Quadrivalent 05/31/2019 Family History Relation Status Comments Father Mother Sibling Social History Tobacco Use Types Packs/Day Years Used Date Smoking Tobacco: Never Alcohol Use Standard Drinks/Week Comments No 0 (1 standard drink = 0.6 oz pur e alcohol) Comments Unknown Sex and Gender Information Value Date Recorded Sex Assigned at Not on file Legal Sex Female 4:35 PM EST Gender Identity Not on file Sexual Orientation Not on file Last Filed Vital Signs Vital Sign Reading Time Taken Comments Blood Pressure 137/95 04/06/2024 3:12 PM EDT Pulse 82 01/05/2024 4:36 PM EDT Temperature - - Respiratory Rate - - Oxygen Saturation - - Inhaled Oxygen Concentration - - Weight 108 kg (237 lb) 04/11/2019 12:00 PM EDT Height 165.1 cm (5' 5 ) 04/11/2019 12:00 PM EDT Body Mass Index 39.44 04/11/2019 12:00 PM EDT Plan of Treatment Health Maintenance Due Date Last Done Comments Breast Cancer Screening 1974 Pneumococcal Vaccine: Pediat rics (0 to 5 Years) and At-Risk Patients (6 to 64 Years) (1 of 2 - PCV) 02/27/1980 Hepatitis B Vaccine (1 of 3 - 19+ 3-dose series) 1993 01/10/2009 Colorectal Cancer Screening: Annual FOBT 2023 Colorectal Cancer Screening: Colonoscopy 2023 Colorectal Cancer Screening: Sigmoidoscopy 2023 Influenza Vaccine (#1) 2024 9, 05/21/2015, 04/12/[address] [place] [address] [place] [address] [employer] Care Teams Skein Bander Relationship Specialty Start Date End Date Shannan Mcnulty MD [address] [place] [address] PCP - General Internal Medicine 01/05/24
--- OUTSIDE RECORDS SUMMARY | 2024-08-06 15:11 | XMS_ITS | Clinical Summary ---
Author Organization [facility] Address [address] [place] [address] Phone Care Team Providers Care Cloth Examiner Hand Name Role Phone Shannan Mcnulty MD Primary Care Provider [phone] Allergies Active Allergy Reactions Criticality Noted Date Comments Hydromorphone Nausea And Vomiting 07/19/2024 Penicillins Hives 06/16/2024 Medications metoprolol tartrate (LOPRESSOR) 50 mg tablet Take 1 tablet (50 mg total) by mouth 2 (two) times a day. Active losartan (COZAAR) 50 mg tablet Take 1 tablet (50 mg total) by mouth 1 (one) time each day. Active hydroCHLOROthiaz rachel (HYDRODIURIL) 25 mg tablet Take 1 tablet (25 mg total) by mouth 1 (one) time each day. Active loratadine (CLARITIN REDITABS) 10 mg dispersible tablet Dissolve 1 tablet (10 mg total) on top of the tongue 1 (one) time each day. Active budesonide-formo teroL (SYMBICORT) 160-4.5 mcg/actuation inhaler Inhale 2 puffs by mouth 2 (two) times a day. Rinse mouth with water after use to reduce aftertaste and incidence of candidiasis. Do not swallow. Active hydrOXYzine HCL (ATARAX) 10 mg tablet Take 1 tablet (10 mg total) by mouth every 6 (six) hours if needed for anxiety for up to 10 days. 12 tablet 4 Active predniSONE (DELTASONE) 20 mg tablet Take 60 mg (3 tablets) for 3 days, then 40 mg (2 tablets) for 3 days, then 20 mg (1 tablet) for 3 days 18 tablet 5 07/30/19 25 Active Problems Problem Noted Date Diagnosed Date Pain of left lower extremity 06/16/2024 Encounters Date Type Department Care Team Description 07/19/2024 9:00 PM EST - 07/20/2024 1:12 AM EST [facility] [address] [place] [phone] Dyspnea, unspecified type (Primary Dx); Mild intermittent asthma with exacerbation Discharge Disposition: Home or Self Care 06/16/2024 1:55 PM EST - 06/16/2024 3:56 PM EST [facility] [address] [place] [phone] Bassam Mejia MD Pain of left lower extremity (Primary Dx); Anxiety Discharge Disposition: Home or Self Care from Last 3 Months Family History Medical History Relation Name Comments Other cancer Brother 1 ALL; Diabetes Maternal Grandfather Breast cancer Maternal Grandmother Diabetes Maternal Grandmother Heart attack Mother at age 51; smok er Thyroid disease Mother Relation Name Status Comments Brother 1 Brother 2 Maternal Grandfather Maternal Grandmother Mother Social History Tobacco Use Types Packs/Day Years Used Date Smoking Tobacco: Never Alcohol Use Standard Drinks/Week Comments No 0 (1 standard drink = 0.6 oz pur e alcohol) Comments Unknown Sex and Gender Information Value Date Recorded Sex Assigned at Not on file Legal Sex Female 10:22 PM EST Gender Identity Not on file Sexual Orientation Not on file Obstetrics History Last Filed Vital Signs Vital Sign Reading [...] Mass Index 40.67 07/19/2024 4:28 PM EST Plan of Treatment Health Maintenance Due Date Last Done Comments Breast Cancer Screening 1974 Pneumococcal Vaccine: 50+ Years (1 of 2 - PCV) 1993 Pneumococcal Vaccine: Pediatrics (0 to 5 Years) and At-Risk Patients (6 to 64 Years) (1 of 2 - PCV) 1993 Cervical Cancer Screening: Pap Smear 1995 Hepatitis B Vaccines (2 of 3 - 19+ 3-dose series) 02/07/2009 01/10/2009 DTaP,Tdap,and Td Vaccines (3 - Td or Tdap) 07/13/2009 01/10/2009, 05/09/2005 Cholesterol Screening (Lipid Panel) 07/26/2023 Colorectal Cancer Screening: Colonoscopy 07/26/2023 Depression Screening 07/26/2023 HIV Screening 07/26/2023 Hepatitis C Screening 07/26/2023 Social Influencers of Health Screening 07/26/2023 COVID-19 Vaccine ( season) 2024 Influenza Vaccine (#1) 2024 9, 03/17/2018, 06/07/2016, Additional history exists Zoster Vaccines (1 of 2) 02/27/2024 Hypertension/CHF/CAD Annual BMP Blood Test 07/19/2025 07/19/2024, 06/16/2024 HIB Vaccines Aged Out No longer eligi ble based on patient's age to complete this topic HPV Vaccines Aged Out No longer eligi ble based on patient's age to complete this topic Hepatitis A Vaccines Aged Out No long er eligible based on patient's age to complete this topic IPV Vaccines Aged Out No longer eligi ble based on patient's age to complete this topic MMR Vaccines Aged Out No longer eligi ble based on patient's age to complete this topic Meningococcal ACWY Vaccine Aged Out N o longer eligible based on patient's age to complete this topic Meningococcal B Vacine Aged Out No lo nger eligible based on patient's age to complete this topic RSV Immunization Patients Under 20 months Aged Out No longer eligible based on patient's age to complete this topic Varicella Vaccines Aged Out No longer eligible based on patient's age to complete this topic Procedures Procedure Name Priority Date/Time Associated Diagnosis Comments CT ANGIO CHEST WO AND/OR W CONTRAST STAT 07/19/2024 10:39 PM EST Dyspnea, unspecified type XR CHEST 2 VIEWS STAT 07/19/2024 8:34 PM EST TROPONIN I HIGH SENSITIVITY STAT 07/19/2024 8:22 PM EST CBC WITH AUTO DIFFERENTIAL STAT 07/19/2024 4:56 PM EST TROPONIN I HIGH SENSITIVITY STAT 07/19/2024 4:56 PM EST BASIC METABOLIC PANEL STAT 07/19/2024 4:56 PM EST CBC AND DIFFERENTIAL STAT 07/19/2024 4:56 PM EST ECG 12-LEAD STAT 07/19/2024 4:51 PM EST ECG ANNOTATED 07/19/2024 VAS US DUPLEX LOWER EXT VENOUS LEFT STAT 06/16/2024 2:53 PM EST Pain of left lower extremity CBC WITH AUTO DIFFERENTIAL STAT 06/16/2024 1:45 PM EST MAGNESIUM STAT 06/16/2024 1:45 PM EST BASIC METABOLIC PANEL STAT 06/16/2024 1:45 PM EST CBC AND DIFFERENTIAL STAT 06/16/2024 1:45 PM EST from Last 3 Months Results * CT Angio Chest wo and/or [...] document has been electronically signed by: Hussein Hernnadez MD on 07/19/2024 23:41:45 Luiza DOLAN IMG [...] Signed Date: 07/20/2024 11:17 ET Workstation ID: [id number] Transcribed By: Self Edit Transcribed Date: 07/20/2024 [...] Signed Date: 07/20/2024 11:17 ET Workstation ID: [id number] Transcribed By: Self Edit Transcribed Date: 07/20/2024 11:17 ET Jemal Camacho MD IMG XR PROCEDURES Final Result * Troponin I high sensitivity (07/19/2024 8:22 PM EST) Only the most recent of2 resultswithin the time period is included. High Sensitivity Troponin I 6 <=54 ng/L LAB CHEMISTRY METHOD 07/19/2024 9:[address] [facility] Blood Venous blood specimen / Unknown Venipuncture / Unknown 07/19/2024 8:22 PM EST 07/19/2024 8:[address] [facility] - 07/19/2024 9:22 PM EST High levels of biotin in samples may falsely decrease hsTroponin values. ??Use caution when interpreting hsTroponin results in patients taking biotin who exhibit renal impairment (eGFR <60) or in patients taking more than 20 mg/day of biotin. us Jemal Camacho MD LAB BLOOD ORDERABLES Final Resu lt [facility] [address] [place] [address], * (ABNORMAL) CBC auto differential (07/19/2024 4:56 PM EST) Only the most recent of2 resultswithin the time period is included. WBC 15.6(H) 4.8 - 10.8 K/mcL LAB HEMETOLOGY METHOD 07/19/2024 5:21 PM [facility] RBC 5.10(H) 3.80 - 4.80 M/mcL LAB HEMETOLOGY METHOD 07/19/2024 5:21 PM [facility] Hemoglobin 14.9 11.5 - 16.0 g/dL LAB HEMETOLOGY METHOD 07/19/2024 5:21 PM [facility] Hematocrit 45.5 35.0 - 47.0 % LAB HEMETOLOGY METHOD 07/19/2024 5:21 PM [facility] MCV 88.9 79.0 - 98.0 FL LAB HEMETOLOGY METHOD 07/19/2024 5:21 PM [facility] MCH 29.1 27.0 - 32.0 pcg LAB HEMETOLOGY METHOD 07/19/2024 5:21 PM [facility] MCHC 32.7 32.0 - 37.0 g/dL LAB HEMETOLOGY METHOD 07/19/2024 5:21 PM [facility] RDW 13.3 11.0 - 15.0 % LAB HEMETOLOGY METHOD 07/19/2024 5:21 PM [facility] Platelets 321 130 - 400 K/mcL LAB HEMETOLOGY METHOD 07/19/2024 5:21 PM [facility] MPV 10.4 7.0 - 11.0 FL LAB HEMETOLOGY METHOD 07/19/2024 5:21 PM [facility] NRBC 0.0 <1.0 % LAB HEMETOLOGY METHOD 07/19/2024 5:21 PM [facility] NRBC Absolute 0.00 <0.10 K/mcL LAB HEMETOLOGY METHOD 07/19/2024 5:21 PM [facility] Neutrophils Relative 77.9 % LAB HEMETOLOGY METHOD 07/19/2024 5:21 PM [facility] Lymphocytes Relative 13.1 % LAB HEMETOLOGY METHOD 07/19/2024 5:21 PM [facility] Monocytes Relative 3.7 % LAB HEMETOLOGY METHOD 07/19/2024 5:21 PM [facility] Eosinophils Relative 0.2 % LAB HEMETOLOGY METHOD 07/19/2024 5:21 PM [facility] Basophils Relative 0.7 % LAB HEMETOLOGY METHOD 07/19/2024 5:21 PM [facility] Immature Granulocytes Relative 4.4 % LAB HEMETOLOGY METHOD 07/19/2024 5:21 PM [facility] Neutrophils Absolute 12.14(H) 1.50 - 7.00 K/mcL LAB HEMETOLOGY METHOD 07/19/2024 5:21 PM [facility] Lymphocytes Absolute 2.05 1.00 - 5.00 K/mcL LAB HEMETOLOGY METHOD 07/19/2024 5:21 PM [facility] Monocytes Absolute 0.58 0.20 - 1.00 K/mcL LAB HEMETOLOGY METHOD 07/19/2024 5:21 PM [facility] Eosinophils Absolute 0.03 0.00 - 0.50 K/mcL LAB HEMETOLOGY METHOD 07/19/2024 5:21 PM [facility] Basophils Absolute 0.11 0.00 - 0.20 K/mcL LAB HEMETOLOGY METHOD 07/19/2024 5:21 PM [facility] Immature Granulocytes Absolute 0.68(H) 0.00 - 0.03 K/mcL LAB HEMETOLOGY METHOD 07/19/2024 5:21 PM [facility] Blood Venous blood specimen / Unknown Venipuncture / Unknown 07/19/2024 4:56 PM EST 07/19/2024 5:12 PM EST Jemal Bob Camacho MD LAB BLOOD ORDERABLES Final Resu lt [facility] [address] [place] [address], [place] [phone] * (ABNORMAL) Basic metabolic panel (07/19/2024 4:56 PM EST) Only the most recent of2 resultswithin the time period is included. Sodium 134 133 - 145 mmol/L LAB CHEMISTRY METHOD 07/19/2024 5:43 PM [facility] Potassium 3.7 3.5 - 5.5 mmol/L LAB CHEMISTRY METHOD 07/19/2024 5:43 PM [facility] Chloride 100 96 - 110 mmol/L LAB CHEMISTRY METHOD 07/19/2024 5:43 PM [facility] CO2 26 21 - 32 mmol/L LAB CHEMISTRY METHOD 07/19/2024 5:43 PM [facility] Anion Gap 8 3 - 11 LAB CHEMISTRY METHOD 07/19/2024 5:43 PM [facility] Glucose 178(H) 70 - 100 mg/dL LAB CHEMISTRY METHOD 07/19/2024 5:43 PM [facility] BUN 18 5 - 25 mg/dL LAB CHEMISTRY METHOD 07/19/2024 5:43 PM [facility] Creatinine 0.76 0.50 - 1.10 mg/dL LAB CHEMISTRY METHOD 07/19/2024 5:43 PM [facility] eGFR 96 >=60 mL/min/1. 73m2 LAB CHEMISTRY METHOD 07/19/2024 5:43 PM [facility] Comment:Calculation based on the??Chronic Kidney Disease Epidemiology Collaboration (CKD-EPI) equation refit??without adjustment for race. BUN/Creatinine Ratio 23.7 LAB CHEMISTRY METHOD 07/19/2024 5:[address] [facility] Calcium 8.9 8.5 - 10.5 mg/dL LAB CHEMISTRY METHOD 07/19/2024 5:[address] [facility] Blood Venous blood specimen / Unknown Venipuncture / Unknown 07/19/2024 4:56 PM EST 07/19/2024 5:12 PM EST Jemalsabi Camacho MD LAB BLOOD ORDERABLES Final Resu lt [facility] [address] [place] [address], [place] [phone] * ECG 12 lead (07/19/2024 4:51 PM EST) Ventricular Rate ECG 74 BPM GEMUSE Atrial Rate 74 BPM GEMUSE P-R Interval 176 ms GEMUSE QRS Duration 94 ms GEMUSE Q-T Interval 416 ms GEMUSE QTc 461 ms GEMUSE P Wave [place] 16 degrees GEMUSE R [place] 18 degrees GEMUSE T [place] 76 degrees GEMUSE ECG Interpretation Normal sinus rhythm Possible Inferior infarct (cited on or before 04-OCT-2022) Abnormal ECG When compared with ECG of 04-OCT-2022 10:27, [place] interval has decreased Confirmed by ASIA CAIN ([id number]) on 07/21/2024 11:05:08 AM GEMUSE 07/19/2024 4:51 PM EST 07/21/2024 11:05 AM EST us Jemalsabi Camacho MD ECG ORDERABLES Final Result GEMUSE * ECG-Annotated (07/19/2024) Provider Onbase ECG ORDERABLES Final Result * Vascular US Duplex Lower Extremity Venous Left (06/16/2024 2:53 PM EST) Anatomical Region Laterality Modality Vascular, Abdomen Ultrasound 06/16/2024 3:13 PM EST Impressions 06/16/2024 3:14 PM EST No deep venous thrombosis demonstrated. -------- FINAL REPORT -------- Dictated By: Lino Campbell Dictated Date: 06/16/2024 15:13 ET Assigned Physician: Lino Campbell Reviewed and Electronically Signed By: Lino Campbell Signed Date: 06/16/2024 15:14 ET Workstation ID: [id number] Transcribed By: Self Edit Transcribed Date: 06/16/2024 15:13 ET Narrative 06/16/2024 3:14 PM EST EXAM: DUPLEX ULTRASOUND LOWER, UNILATERAL LEFT HISTORY: ??Left leg pain. Clinical concern for venous thrombosis TECHNIQUE: ??Real-time ultrasonography of the venous system from the groin to the proximal calf is performed. ??Compression and augmentation were used as needed. Color mapping was performed. Doppler spectral analysis was performed. FINDINGS: The venous system from the groin into the proximal calf was visualized and compressible. The caliber appears within normal limits. The visualized venous system is compressible. There is appropriate color saturation of the lumen. Appropriate spectral waveforms were obtained during augmentation and compression. No other significant findings. Procedure Note Lino Campbell MD - 06/16/2024 EXAM: DUPLEX ULTRASOUND LOWER, UNILATERAL LEFT HISTORY: Left leg pain. Clinical concern for venous thrombosis TECHNIQUE: Real-time ultrasonography of the venous system from the grointo the proximal calf is performed. Compression and augmentation were usedas needed. Color mapping was performed. Doppler spectral analysis wasperformed. FINDINGS: The venous system from the groin into the proximal calf wasvisualized and compressible. The caliber appears within normal limits. The visualized venous system is compressible. There is appropriate colorsaturation of the lumen. Appropriate spectral waveforms were obtained during augmentation andcompression. No other significant findings. IMPRESSION: No deep venous thrombosis demonstrated. -------- FINAL REPORT -------- Dictated By: Lino Campbell Dictated Date: 06/16/2024 15:13 ET Assigned Physician: Lino Campbell Reviewed and Electronically Signed By: Lino Campbell Signed Date: 06/16/2024 15:14 ET Workstation ID: [id number] Transcribed By: Self Edit Transcribed Date: 06/16/2024 15:13 ET us Rachel DOLAN CV VASCULAR PROCEDURES Nhung l Result * Magnesium (06/16/2024 1:45 PM EST) Magnesium 2.2 1.9 - 2.6 mg/dL LAB CHEMISTRY METHOD 06/16/2024 2:[address] [facility] Blood Venous blood specimen / Unknown Venipuncture / Unknown 06/16/2024 1:45 PM EST 06/16/2024 1:57 PM EST Farn Pena MD LAB BLOOD ORDERABLES Final Res ult [facility] [address] [place] [address], from Last 3 Months Insurance [facility] Care Teams Cloth Examiner Hand Relationship Specialty Start Date End Date Shannan Mcnulty MD [address] [place] [address] PCP - General Internal Medicine 06/16/24
[2024-08-06 18:00] LABS: Influenza A PCR POSITIVE (Negative); Influenza B PCR NEGATIVE (Negative); Resp Syncy Virus RNA Qual PCR NEGATIVE (Negative); SARS COV2 PCR INHOUSE NEGATIVE (Negative)
== END 2024-08-06 12:42 | disposition home or self-care (01) ==
LOC: HO.LAB 12:41
PROVIDERS: PCP Internal Medicine; Visit Provider Physician Assistant
DX: R09.89 Other specified symptoms and signs involving the circulatory and respiratory systems (principal); Z13.83 Encounter for screening for respiratory disorder NEC
CPT/HCPCS: 0241U; 99212

== ENCOUNTER 2024-08-09 13:36 | Outpatient (REF) | payer OTHER, SELFPAY ==
--- NOTE | ~2024-08-09 | XR_ITS ---
EXAMINATION: XR CHEST 2 VIEWS HISTORY: J10.1 - Influenza due to other identified influenza virus COMPARISON: Comparison is made with the prior examination dated 07/13/2024. FINDINGS: PA and lateral views of the chest are submitted. Again seen is an opacity in the right upper lung zone which has been present since 02/06/2024. Left lung is clear. There is no pleural effusion, pneumothorax, or pulmonary vascular congestion. The heart is normal in size. The bones are intact. XR/XR chest 2V IMPRESSION: Persistent right upper lobe opacity. Further evaluation with chest CT is recommended to exclude neoplasm. Electronically signed by: Andriy Suero MD 08/09/2024 02:37 PM EST
--- OUTSIDE RECORDS SUMMARY | 2024-08-09 14:09 | XMS_ITS | Encounter Summary ---
Author Organization [facility], Address [address] [place] [address] Phone Care Team Providers Care Early Childhood Associate Teacher Name Role Phone Shannan Mcnulty MD Primary Care Provider [phone] Reason for Visit * Reason Comments Med Refill Encounter Details Date Type Department Care Team (Late st Contact Info) Description 09/15/2023 Refill [facility] [place] [address] [place] [phone] Niels Nagy MD [address] [place] [phone] Social History Tobacco Use Types Packs/Day Years [...] on filedocumented in this encounter Care Teams Early Childhood Associate Teacher Relationship Specialty Start Date End Date Shannan Mcnulty MD [facility] [place] [address] PCP - General Internal Medicine 01/05/24 documented as of this encounter
--- OUTSIDE RECORDS SUMMARY | 2024-08-09 14:10 | XMS_ITS | Encounter Summary ---
Author Organization [facility] [place], Address [address] [address] Phone Care Team Providers Care Safe Technician Name Role Phone Shannan Mcnulty MD Primary Care Provider [phone] Reason for Visit * Reason Comments Med Refill Encounter Details Date Type Department Care Team (Late st Contact Info) Description 05/18/2020 Refill [facility] [address] [place] [address] Evens Koch MD [address] [place] [address] [place] [address] Social History Tobacco Use Types Packs/Day Years [...] on filedocumented in this encounter Care Teams Safe Technician Relationship Specialty Start Date End Date Shannan Mcnulty MD [facility] [place] [address] PCP - General Internal Medicine 01/05/24 documented as of this encounter
--- OUTSIDE RECORDS SUMMARY | 2024-08-09 14:10 | XMS_ITS | Encounter Summary ---
Author Organization [facility] Address [address] [place] [address] Phone Care Team Providers Care Cash Application Representative Name Role Phone Shannan Mcnulty MD Primary Care Provider [phone] Encounter Details Date Type Department Care Team (Late st Contact Info) Description 07/26/2024 Telephone [facility] [place], [address] [place] [phone] Neena Andrew [address] [place] [phone] Social History Tobacco Use Types Packs/Day Years [...] 07/26/2024 3:51 PM EST Requested records from [facility]. Will scan to chart once they arrive. * Telephone Encounter - Neena Andrew - 07/26/2024 9:43 AM EST Nadia Leyva called to cx appt because she's sick and will call back when she feels better. She reported Ct scan and lab work done at [facility] last week. Thanks documented in this encounter Plan of Treatment Not on file documented as of this encounter Visit Diagnoses Not on filedocumented in this encounter Care Teams Cash Application Representative Relationship Specialty Start Date End Date Shannan Mcnulty MD [address] [place] [address] PCP - General Internal Medicine 01/05/24 documented as of this encounter
--- OUTSIDE RECORDS SUMMARY | 2024-08-09 14:10 | XMS_ITS | Encounter Summary ---
Author Organization [facility] [place], Address [address] [address] Phone Care Team Providers Care Director Of Housing Name Role Phone Shannan Mcnulty MD Primary Care Provider Reason for Visit * Reason Comments Med Refill Encounter Details Date Type Department Care Team (Late st Contact Info) Description 04/15/2020 Refill [facility] [address] [place] [address] Evens Koch MD [address] [place] [address] [place] [address] Social History Tobacco Use Types Packs/Day Years [...] in this encounter Care Teams Director Of Housing Relationship Specialty Start Date End Date Shannan Mcnulty MD [facility] [place] [address] PCP - General Internal Medicine 01/05/24 documented as of this encounter
--- OUTSIDE RECORDS SUMMARY | 2024-08-09 14:10 | XMS_ITS | Encounter Summary ---
Author Organization [facility] Address [address] [place] [address] Care Team Providers Care Technical Lead Name Role Phone Shannan Mcnulty MD Primary Care Provider [phone] Reason for Visit * Reason Comments Shortness of Breath +RSV last week - sen t in by PCP today after completing round of solumedrol, had out patient xray and uncertain of result Encounter Details Date Type Department Care Team (Late st Contact Info) Description 07/19/2024 9:00 PM EST - 07/20/2024 1:12 AM EST Emergency [facility] [address] [place] [phone] Dyspnea, unspecified type (Primary Dx); Mild intermittent [...] soon! Thank you for coming to the [facility] Emergency Department today. Our entire team [...] through Care Everywhere. * Asthma: General Info (Chinese) documented in this encounter Medications at Time [...] Procedure Abnormality Status --------- ------ CBC auto differential[[id number]] Abnormal Final result Please view results for [...] Physician Attestation KELSI Muniz 07/19/24 2140 KELSI Muinz 07/20/24 0049 Cosigned by Cristian Banegas DO [...] Signed Date: 07/20/2024 11:17 ET Workstation ID: [id number] Transcribed By: Self Edit Transcribed Date: 07/20/2024 [...] Signed Date: 07/20/2024 11:17 ET Workstation ID: [id number] Transcribed By: Self Edit Transcribed Date: 07/20/2024 11:17 ET Jemal Camacho MD IMG XR PROCEDURES Final Result * Troponin I high sensitivity (07/19/2024 8:22 PM EST) High Sensitivity Troponin I 6 <=54 ng/L LAB CHEMISTRY METHOD 07/19/2024 9:22 PM EST [facility] Blood Venous blood specimen / Unknown Venipuncture / Unknown 07/19/2024 8:22 PM EST 07/19/2024 8:55 PM EST Narrative [facility] - 07/19/2024 9:22 PM EST High levels of biotin in samples may falsely decrease hsTroponin values. ??Use caution when interpreting hsTroponin results in patients taking biotin who exhibit renal impairment (eGFR <60) or in patients taking more than 20 mg/day of biotin. Jemal Camacho MD LAB BLOOD ORDERABLES Final Resu lt [facility] [address] [place] [address], [place] [phone] * (ABNORMAL) CBC auto differential (07/19/2024 4:56 PM EST) WBC 15.6(H) 4.8 - 10.8 K/mcL LAB HEMETOLOGY METHOD 07/19/2024 5:21 PM EST [facility] RBC 5.10(H) 3.80 - 4.80 M/mcL LAB HEMETOLOGY METHOD 07/19/2024 5:21 PM [facility] Hemoglobin 14.9 11.5 - 16.0 g/dL LAB HEMETOLOGY METHOD 07/19/2024 5:21 PM EST [facility] Hematocrit 45.5 35.0 - 47.0 % LAB HEMETOLOGY METHOD 07/19/2024 5:21 PM EST [facility] MCV 88.9 79.0 - 98.0 FL LAB HEMETOLOGY METHOD 07/19/2024 5:21 PM [facility] MCH 29.1 27.0 - 32.0 pcg LAB HEMETOLOGY METHOD 07/19/2024 5:21 PM EST [facility] MCHC 32.7 32.0 - 37.0 g/dL LAB HEMETOLOGY METHOD 07/19/2024 5:21 PM [facility] RDW 13.3 11.0 - 15.0 % LAB HEMETOLOGY METHOD 07/19/2024 5:21 PM [facility] Platelets 321 130 - 400 K/mcL LAB HEMETOLOGY METHOD 07/19/2024 5:21 PM [facility] MPV 10.4 7.0 - 11.0 FL LAB HEMETOLOGY METHOD 07/19/2024 5:21 PM [facility] NRBC 0.0 <1.0 % LAB HEMETOLOGY METHOD 07/19/2024 5:21 PM [facility] NRBC Absolute 0.00 <0.10 K/mcL LAB HEMETOLOGY METHOD 07/19/2024 5:21 PM [facility] Neutrophils Relative 77.9 % LAB HEMETOLOGY METHOD 07/19/2024 5:21 PM [facility] Lymphocytes Relative 13.1 % LAB HEMETOLOGY METHOD 07/19/2024 5:21 PM [facility] Monocytes Relative 3.7 % LAB HEMETOLOGY METHOD 07/19/2024 5:21 PM [facility] Eosinophils Relative 0.2 % LAB HEMETOLOGY METHOD 07/19/2024 5:21 PM [facility] Basophils Relative 0.7 % LAB HEMETOLOGY METHOD 07/19/2024 5:21 PM [facility] Immature Granulocytes Relative 4.4 % LAB HEMETOLOGY METHOD 07/19/2024 5:21 PM [facility] Neutrophils Absolute 12.14(H) 1.50 - 7.00 K/mcL LAB HEMETOLOGY METHOD 07/19/2024 5:21 PM [facility] Lymphocytes Absolute 2.05 1.00 - 5.00 K/mcL LAB HEMETOLOGY METHOD 07/19/2024 5:21 PM [facility] Monocytes Absolute 0.58 0.20 - 1.00 K/mcL LAB HEMETOLOGY METHOD 07/19/2024 5:21 PM [facility] Eosinophils Absolute 0.03 0.00 - 0.50 K/mcL LAB HEMETOLOGY METHOD 07/19/2024 5:21 PM [facility] Basophils Absolute 0.11 0.00 - 0.20 K/mcL LAB HEMETOLOGY METHOD 07/19/2024 5:21 PM EST [facility] Immature Granulocytes Absolute 0.68(H) 0.00 - 0.03 K/mcL LAB HEMETOLOGY METHOD 07/19/2024 5:21 PM EST [facility] Blood Venous blood specimen / Unknown Venipuncture / Unknown 07/19/2024 4:56 PM EST 07/19/2024 5:12 PM EST Jemalsabi Camacho MD LAB BLOOD ORDERABLES Final Resu lt Performing Organization Address [facility]/ZIP Co de Phone Number [facility] [address] [place] [address], [place] [phone] * Troponin I high sensitivity (07/19/2024 4:56 PM EST) [facility] High Sensitivity Troponin I 5 <=54 ng/L LAB CHEMISTRY METHOD 07/19/2024 5:46 PM EST [facility] Blood Venous blood specimen / Unknown Venipuncture / Unknown 07/19/2024 4:56 PM EST 07/19/2024 5:12 PM EST Narrative [facility] - 07/19/2024 5:46 PM EST High levels of biotin in samples may falsely decrease hsTroponin values. ??Use caution when interpreting hsTroponin results in patients taking biotin who exhibit renal impairment (eGFR <60) or in patients taking more than 20 mg/day of biotin. us Jemal Camacho MD LAB BLOOD ORDERABLES Final Resu lt Performing Organization Address City/[facility]/ZIP Co de Phone Number [facility] [address] [place] [address], [place] [phone] * (ABNORMAL) Basic metabolic panel (07/19/2024 4:56 PM EST) Sodium 134 133 - 145 mmol/L LAB CHEMISTRY METHOD 07/19/2024 5:43 PM [facility] Potassium 3.7 3.5 - 5.5 mmol/L LAB CHEMISTRY METHOD 07/19/2024 5:43 PM [facility] Chloride 100 96 - 110 mmol/L LAB CHEMISTRY METHOD 07/19/2024 5:43 PM [facility] CO2 26 21 - 32 mmol/L LAB CHEMISTRY METHOD 07/19/2024 5:43 PM [facility] Anion Gap 8 3 - 11 LAB CHEMISTRY METHOD 07/19/2024 5:43 PM [facility] Glucose 178(H) 70 - 100 mg/dL LAB CHEMISTRY METHOD 07/19/2024 5:43 PM [facility] BUN 18 5 - 25 mg/dL LAB CHEMISTRY METHOD 07/19/2024 5:43 PM [facility] Creatinine 0.76 0.50 - 1.10 mg/dL LAB CHEMISTRY METHOD 07/19/2024 5:43 PM [facility] eGFR 96 >=60 mL/min/1. 73m2 LAB CHEMISTRY METHOD 07/19/2024 5:43 PM [facility] Comment:Calculation based on the??Chronic Kidney Disease Epidemiology Collaboration (CKD-EPI) equation refit??without adjustment for race. BUN/Creatinine Ratio 23.7 LAB CHEMISTRY METHOD 07/19/2024 5:43 PM [facility] Calcium 8.9 8.5 - 10.5 mg/dL LAB CHEMISTRY METHOD 07/19/2024 5:43 PM [facility] Blood Venous blood specimen / Unknown Venipuncture / Unknown 07/19/2024 4:56 PM EST 07/19/2024 5:12 PM EST us Jemalsabi Camacho MD LAB BLOOD ORDERABLES Final Resu lt [facility] [address] [place] [address], * ECG 12 lead (07/19/2024 4:51 PM EST) Ventricular Rate ECG 74 BPM GEMUSE Atrial Rate 74 BPM GEMUSE P-R Interval 176 ms GEMUSE QRS Duration 94 ms GEMUSE Q-T Interval 416 ms GEMUSE QTc 461 ms GEMUSE P Wave Watson 16 degrees GEMUSE R Watson 18 degrees GEMUSE T Watson 76 degrees GEMUSE ECG Interpretation Normal sinus rhythm Possible Inferior infarct (cited on or before 04-OCT-2022) Abnormal ECG When compared with ECG of 04-OCT-2022 10:27, [place] interval has decreased Confirmed by CRISTIAN CAIN [...] 07/19/2024 documented in this encounter Care Teams Technical Lead Relationship Specialty Start Date End Date Shannan Mcnulty MD [address] [place] [phone] PCP - General Internal Medicine 06/16/24 documented as of this encounter
--- OUTSIDE RECORDS SUMMARY | 2024-08-09 14:10 | XMS_ITS | Encounter Summary ---
Author Organization [facility] [place], Address [address] [address] Phone Care Team Providers Care Commissions Specialist Name Role Phone Shannan Mcnulty MD Primary Care Provider Reason for Visit * Reason Comments Med Refill Encounter Details Date Type Department Care Team (Late st Contact Info) Description 07/15/2020 Refill [facility] [address] [place] [address] Evens Koch MD [address] [place] [address] [place] [phone] Social History Tobacco Use Types Packs/Day Years [...] on filedocumented in this encounter Care Teams Commissions Specialist Relationship Specialty Start Date End Date Shannan Mcnulty MD [facility] [place] [address] PCP - General Internal Medicine 01/05/24 documented as of this encounter
--- OUTSIDE RECORDS SUMMARY | 2024-08-09 14:10 | XMS_ITS | Encounter Summary ---
Author Organization [facility] [place], Address [address] [place] [address] Phone Care Team Providers Care Black Pickler Name Role Phone Shannan Mcnulty MD Primary Care Provider [phone] Reason for Visit * Reason Comments Med Refill Encounter Details Date Type Department Care Team (Late st Contact Info) Description 10/01/2020 Refill [facility] [address] [place] [address] Niels Nagy MD [address] [place] [address] [place] [address] Social History Tobacco Use Types Packs/Day Years [...] on filedocumented in this encounter Care Teams Black Pickler Relationship Specialty Start Date End Date Shannan Mcnulty MD [facility] [place] [address] PCP - General Internal Medicine 01/05/24 documented as of this encounter
--- OUTSIDE RECORDS SUMMARY | 2024-08-09 14:10 | XMS_ITS | Encounter Summary ---
Author Organization [facility] [place], Address [address] [place] [address] Phone Care Team Providers Care Machine Loader Name Role Phone Shannan Mcnulty MD Primary Care Provider [phone] Reason for Visit * Reason Comments Med Refill Encounter Details Date Type Department Care Team (Late st Contact Info) Description 12/24/2020 Refill [facility] [address] [place] [address] Niels Nagy MD [address] [place] [address] [place] [address] Social History Tobacco Use Types Packs/Day Years [...] on filedocumented in this encounter Care Teams Machine Loader Relationship Specialty Start Date End Date Shannan Mcnulty MD [facility] [place] [address] PCP - General Internal Medicine 01/05/24 documented as of this encounter
--- OUTSIDE RECORDS SUMMARY | 2024-08-09 14:10 | XMS_ITS | Encounter Summary ---
Author Organization [facility] [place], Address [address] [place] [address] Phone Care Team Providers Care Services Engineer Name Role Phone Shannan Mcnulty MD Primary Care Provider Reason for Visit * Reason Comments Med Refill Encounter Details Date Type Department Care Team (Late st Contact Info) Description 06/14/2024 Refill [facility] [place] - [facility] [address] [place] [phone] Niels Nagy MD [address] [place] [phone] Social History Tobacco Use Types Packs/Day Years [...] on filedocumented in this encounter Care Teams Services Engineer Relationship Specialty Start Date End Date Shannan Mcnulty MD [facility] [place] [address] PCP - General Internal Medicine 01/05/24 documented as of this encounter
--- OUTSIDE RECORDS SUMMARY | 2024-08-09 14:10 | XMS_ITS | Clinical Summary ---
Author Organization [facility] Address [address] [place] [address] Phone Care Team Providers Care Wharf Laborer Name Role Phone Shannan Mcnulty MD Primary Care Provider [phone] Allergies Active Allergy Reactions Criticality Noted Date [...] PM EST - 07/20/2024 1:[address] [facility] [address] [place] [phone] Dyspnea, unspecified type (Primary Dx); Mild intermittent asthma with exacerbation Discharge Disposition: Home or Self Care 06/16/2024 1:55 PM EST - 06/16/2024 3:[address] [facility] [address] [place] [phone] Bassam Mejia MD Pain of left lower [...] Signed Date: 07/20/2024 11:17 ET Workstation ID: [id number] Transcribed By: Self Edit Transcribed Date: 07/20/2024 [...] Signed Date: 07/20/2024 11:17 ET Workstation ID: [id number] Transcribed By: Self Edit Transcribed Date: 07/20/2024 11:17 ET Jemal Camacho MD IMG XR PROCEDURES Final Result * Troponin I high sensitivity (07/19/2024 8:22 PM EST) Only the most recent of2 resultswithin the time period is included. High Sensitivity Troponin I 6 <=54 ng/L LAB CHEMISTRY METHOD 07/19/2024 9:22 PM EST [facility] Blood Venous blood specimen / Unknown Venipuncture / Unknown 07/19/2024 8:22 PM EST 07/19/2024 8:55 PM EST Narrative [facility] - 07/19/2024 9:22 PM EST High levels of biotin in samples may falsely decrease hsTroponin values. ??Use caution when interpreting hsTroponin results in patients taking biotin who exhibit renal impairment (eGFR <60) or in patients taking more than 20 mg/day of biotin. us Jemal Camacho MD LAB BLOOD ORDERABLES Final Resu lt [facility] [address] [place] [address], * (ABNORMAL) CBC auto differential (07/19/2024 4:56 PM EST) Only the most recent of2 resultswithin the time period is included. WBC 15.6(H) 4.8 - 10.8 K/mcL LAB HEMETOLOGY METHOD 07/19/2024 5:21 PM [facility] RBC 5.10(H) 3.80 - 4.80 M/mcL LAB HEMETOLOGY METHOD 07/19/2024 5:21 PM [facility] Hemoglobin 14.9 11.5 - 16.0 g/dL LAB HEMETOLOGY METHOD 07/19/2024 5:21 PM [facility] Hematocrit 45.5 35.0 - 47.0 % LAB HEMETOLOGY METHOD 07/19/2024 5:21 PM [facility] MCV 88.9 79.0 - 98.0 FL LAB HEMETOLOGY METHOD 07/19/2024 5:21 PM [facility] MCH 29.1 27.0 - 32.0 pcg LAB HEMETOLOGY METHOD 07/19/2024 5:21 PM [facility] MCHC 32.7 32.0 - 37.0 [...] 5:21 PM [facility] Immature Granulocytes Absolute 0.68(H) 0.00 - 0.03 K/mcL LAB HEMETOLOGY METHOD 07/19/2024 5:21 PM [facility] Blood Venous blood specimen / Unknown Venipuncture / Unknown 07/19/2024 4:56 PM EST 07/19/2024 5:12 PM EST Jemal Bob Camacho MD LAB BLOOD ORDERABLES Final Resu lt [facility] [address] [place] [address], [place] [phone] * (ABNORMAL) Basic metabolic panel (07/19/2024 4:56 [...] LAB CHEMISTRY METHOD 07/19/2024 5:43 PM EST [facility] Calcium 8.9 8.5 - 10.5 mg/dL LAB CHEMISTRY METHOD 07/19/2024 5:43 PM EST [facility] Blood Venous blood specimen / Unknown Venipuncture / Unknown 07/19/2024 4:56 PM EST 07/19/2024 5:12 PM EST Jemalsabi Camacho MD LAB BLOOD ORDERABLES Final Resu lt [facility] [address] [place] [address], [place] [phone] * ECG 12 lead (07/19/2024 4:51 PM EST) Ventricular Rate ECG 74 BPM GEMUSE Atrial Rate 74 BPM GEMUSE P-R Interval 176 ms GEMUSE QRS Duration 94 ms GEMUSE Q-T Interval 416 ms GEMUSE QTc 461 ms GEMUSE P Wave [place] 16 degrees GEMUSE R [place] 18 degrees GEMUSE T [place] 76 degrees GEMUSE ECG Interpretation Normal sinus rhythm Possible Inferior infarct (cited on or before 04-OCT-2022) Abnormal ECG When compared with ECG of 04-OCT-2022 10:27, [place] interval has decreased Confirmed by ASIA CAIN [...] Signed Date: 06/16/2024 15:14 ET Workstation ID: [id number] Transcribed By: Self Edit Transcribed Date: 06/16/2024 [...] Signed Date: 06/16/2024 15:14 ET Workstation ID: [id number] Transcribed By: Self Edit Transcribed Date: 06/16/2024 15:13 ET us Rachel DOLAN CV VASCULAR PROCEDURES Fin al Result * Magnesium (06/16/2024 1:45 PM EST) Magnesium 2.2 1.9 - 2.6 mg/dL LAB CHEMISTRY METHOD 06/16/2024 2:32 PM EST [facility] Blood Venous blood specimen / Unknown Venipuncture / Unknown 06/16/2024 1:45 PM EST 06/16/2024 1:57 PM EST us Fran Pena MD LAB BLOOD ORDERABLES Final Res ult [facility] [address] [place] [address], from Last 3 Months Insurance [facility] Care Teams Wharf Laborer Relationship Specialty Start Date End Date Shannan Mcnulty MD [address] [place] [address] PCP - General Internal Medicine 06/16/24
--- OUTSIDE RECORDS SUMMARY | 2024-08-09 14:10 | XMS_ITS | Clinical Summary ---
Author Organization [facility] [place], Address [address] [place] [address] [place] [address] Phone Care Team Providers Care Vehicle Assembly Inspector Name Role Phone Shannan Mcnulty MD Primary Care Provider [phone] Allergies Active Allergy Reactions Criticality Noted Date [...] Telephone [facility] [place] [address] [place] [phone] Neena Andrew 07/24/2024 Documentation Only [facility] [address] [place] [address] Lucille Conrad 06/18/2024 Telephone [facility] [place] [address] [place] [address] [place], Lucille 06/14/2024 Refill [facility] [address] [place] [phone] [phone] Niels Nagy MD from Last 3 Months [...] Vaccine (#1) 2024 9, 05/21/2015, 04/12/[address] [place] [place] [id number] [employer] Care Teams Vehicle Assembly Inspector Relationship Specialty Start Date End Date Shannan Mcnulty MD [address] [place] [address] PCP - General Internal Medicine 01/05/24
--- OUTSIDE RECORDS SUMMARY | 2024-08-09 14:10 | XMS_ITS | Encounter Summary ---
Author Organization [facility] Address [address] [place] [address] Phone Care Team Providers Care Principal Cloud Architect Name Role Phone Shannan Mcnulty MD Primary Care Provider [phone] Encounter Details Date Type Department Care Team (Late st Contact Info) Description 07/24/2024 Documentation Only [facility] [place], [address] [place] [address] Lucille Conrad [address] [place] [phone] Social History Tobacco Use Types Packs/Day Years [...] on filedocumented in this encounter Care Teams Principal Cloud Architect Relationship Specialty Start Date End Date Shannan Mcnulty MD [address] [place] [address] PCP - General Internal Medicine 01/05/24 documented as of this encounter
--- OUTSIDE RECORDS SUMMARY | 2024-08-09 14:10 | XMS_ITS | Encounter Summary ---
Author Organization [facility] [place], Address [address] [address] Phone Care Team Providers Care Wildlife Technician Name Role Phone Shannan Mcnulty MD Primary Care Provider Reason for Visit * Reason Comments Med Refill Encounter Details Date Type Department Care Team (Late st Contact Info) Description 07/02/2019 Refill [facility] [address] [place] [address] Evens Koch MD [address] [place] [address] [place] [address] Social History Tobacco Use Types Packs/Day Years [...] on filedocumented in this encounter Care Teams Wildlife Technician Relationship Specialty Start Date End Date Shannan Mcnulty MD [facility] [place] [address] PCP - General Internal Medicine 01/05/24 documented as of this encounter
--- OUTSIDE RECORDS SUMMARY | 2024-08-09 14:10 | XMS_ITS | Encounter Summary ---
Author Organization [facility] [place], Address [address] [place] [address] Phone Care Team Providers Care Pay Clerk Name Role Phone Shannan Mcnulty MD Primary Care Provider Reason for Visit * Reason Comments Med Refill Encounter Details Date Type Department Care Team (Late st Contact Info) Description 09/21/2020 Refill [facility] [address] [place] [address] Niels Nagy MD [address] [place] [address] [place] [address] Social History Tobacco Use Types Packs/Day Years [...] on filedocumented in this encounter Care Teams Pay Clerk Relationship Specialty Start Date End Date Shannan Mcnulty MD [facility] [place] [address] PCP - General Internal Medicine 01/05/24 documented as of this encounter
--- OUTSIDE RECORDS SUMMARY | 2024-08-09 14:10 | XMS_ITS | Encounter Summary ---
Author Organization [facility] Address [address] [place] [address] Phone Care Team Providers Care Grain Oilseed Or Pasture Farm Manager Name Role Phone Shannan Mcnulty MD Primary Care Provider [phone] Encounter Details Date Type Department Care Team (Late st Contact Info) Description 04/05/2024 Documentation Only [facility] [place], [address] [place] [address] Lucille Conrad [address] [place] [phone] Social History Tobacco Use Types Packs/Day Years [...] on filedocumented in this encounter Care Teams Grain Oilseed Or Pasture Farm Manager Relationship Specialty Start Date End Date Shannan Mcnulty MD [address] [place] [address] PCP - General Internal Medicine 01/05/24 documented as of this encounter
--- OUTSIDE RECORDS SUMMARY | 2024-08-09 14:10 | XMS_ITS | Encounter Summary ---
Author Organization [facility] Address [address] [place] [address] Phone Care Team Providers Care Deputy Clerk Of Court Name Role Phone Shannan Mcnulty MD Primary Care Provider [phone] Encounter Details Date Type Department Care Team (Late st Contact Info) Description 01/05/2024 Documentation Only [facility] [place], [address] [place] [address] Lucille Conrad [address] [place] [phone] Social History Tobacco Use Types Packs/Day Years [...] on filedocumented in this encounter Care Teams Deputy Clerk Of Court Relationship Specialty Start Date End Date Shannan Mcnulty MD [address] [place] [address] PCP - General Internal Medicine 01/05/24 documented as of this encounter
--- OUTSIDE RECORDS SUMMARY | 2024-08-09 14:10 | XMS_ITS | Encounter Summary ---
Author Organization [facility] [place], Address [address] [address] Phone Care Team Providers Care Head Of Partner Development Name Role Phone Shannan Mcnulty MD Primary Care Provider [phone] Reason for Visit * Reason Comments Med Refill Encounter Details Date Type Department Care Team (Late st Contact Info) Description 04/07/2020 Refill [facility] [address] [place] [address] Evens Koch MD [address] [place] [address] [place] [address] Social History Tobacco Use Types Packs/Day Years [...] on filedocumented in this encounter Care Teams Head Of Partner Development Relationship Specialty Start Date End Date Shannan Mcnulty [place] [address] PCP - General Internal Medicine 01/05/24 documented as of this encounter
== END 2024-08-09 13:37 | disposition home or self-care (01) ==
LOC: HO.HMGCX 13:36
PROVIDERS: PCP Internal Medicine; Visit Provider Nurse Practitioner Family
DX: J10.1 Influenza due to other identified influenza virus with other respiratory manifestations (principal); R06.2 Wheezing
CPT/HCPCS: 71046; 99212

== ENCOUNTER 2024-08-09 13:36 | Outpatient (AMB) | payer OTHER, SELFPAY ==
--- OUTSIDE RECORDS SUMMARY | 2024-08-09 13:44 | XMS_ITS | Encounter Summary ---
Author Organization [facility], Address [address] [address] Phone Care Team Providers Care Rn Military Name Role Phone Shannan Mcnulty MD Primary Care Provider Reason for Visit * Reason Comments Med Refill Encounter Details Date Type Department Care Team (Late st Contact Info) Description 04/15/2020 Refill [facility] [address] [place] [address] Evens Koch MD [address] [place] [address] [place] [address] Social History Tobacco Use Types Packs/Day Years [...] on filedocumented in this encounter Care Teams Rn Military Relationship Specialty Start Date End Date Shannan Mcnulty MD [facility] [place] [address] PCP - General Internal Medicine 01/05/24 documented as of this encounter
--- OUTSIDE RECORDS SUMMARY | 2024-08-09 13:44 | XMS_ITS | Encounter Summary ---
Author Organization [facility], Address [address] [address] Phone Care Team Providers Care Gas Refrigerator Servicer Name Role Phone Shannan Mcnulty MD Primary Care Provider [phone] Reason for Visit * Reason Comments Med Refill Encounter Details Date Type Department Care Team (Late st Contact Info) Description 05/18/2020 Refill [facility] [address] [place] [address] Evens Koch MD [address] [place] [address] [place] [address] Social History Tobacco Use Types Packs/Day Years [...] on filedocumented in this encounter Care Teams Gas Refrigerator Servicer Relationship Specialty Start Date End Date Shannan Mcnulty MD [facility] [place] [address] PCP - General Internal Medicine 01/05/24 documented as of this encounter
--- OUTSIDE RECORDS SUMMARY | 2024-08-09 13:44 | XMS_ITS | Encounter Summary ---
Author Organization [facility], Address [address] [place] [address] Phone Care Team Providers Care Pre Press Proofer Name Role Phone Shannan Mcnulty MD Primary Care Provider [phone] Reason for Visit * Reason Comments Med Refill Encounter Details Date Type Department Care Team (Late st Contact Info) Description 09/15/2023 Refill [facility] - [facility] [address] [place] [phone] Niels Nagy MD [address] [place] [phone] Social History Tobacco Use Types Packs/Day Years [...] on filedocumented in this encounter Care Teams Pre Press Proofer Relationship Specialty Start Date End Date Shannan Mcnutly MD [facility] [place] [address] PCP - General Internal Medicine 01/05/24 documented as of this encounter
--- OUTSIDE RECORDS SUMMARY | 2024-08-09 13:44 | XMS_ITS | Encounter Summary ---
Author Organization [facility] Address [address] [place] [address] Phone Care Team Providers Care Manager Search Engine Name Role Phone Shannan Mcnulty MD Primary Care Provider [phone] Encounter Details Date Type Department Care Team (Late st Contact Info) Description 04/05/2024 Documentation Only [facility], [address] [place] [address] Lucille Conrad [address] [place] [phone] Social History Tobacco Use Types Packs/Day Years [...] filedocumented in this encounter Care Teams Manager Search Engine Relationship Specialty Start Date End Date Shannan Mcnulty MD [address] [place] [address] PCP - General Internal Medicine 01/05/24 documented as of this encounter
--- OUTSIDE RECORDS SUMMARY | 2024-08-09 13:44 | XMS_ITS | Encounter Summary ---
Author Organization [facility] Address [address] [place] [address] Phone Care Team Providers Care Construction Flagger Name Role Phone Shannan Mcnulty MD Primary Care Provider [phone] Encounter Details Date Type Department Care Team (Late st Contact Info) Description 07/26/2024 Telephone [facility], [address] [place] [phone] Neena Andrew [address] [place] [phone] Social History Tobacco Use Types Packs/Day Years [...] 07/26/2024 3:51 PM EST Requested records from [facility]. Will scan to chart once they arrive. * Telephone Encounter - Neena Andrew - 07/26/2024 9:43 AM EST Nadia Leyva called to cx appt because she's sick and will call back when she feels better. She reported Ct scan and lab work done at [facility] last week. Thanks documented in this encounter Plan of Treatment Not on file documented as of this encounter Visit Diagnoses Not on filedocumented in this encounter Care Teams Construction Flagger Relationship Specialty Start Date End Date Shannan Mcnulty MD [address] [place] [address] PCP - General Internal Medicine 01/05/24 documented as of this encounter
--- OUTSIDE RECORDS SUMMARY | 2024-08-09 13:44 | XMS_ITS | Encounter Summary ---
Author Organization [facility], Address [address] [address] Phone Care Team Providers Care Vocational Training Director Name Role Phone Shannan Mcnulty MD Primary Care Provider [phone] Reason for Visit * Reason Comments Med Refill Encounter Details Date Type Department Care Team (Late st Contact Info) Description 07/15/2020 Refill [facility] [address] [place] [address] Evens Koch MD [address] [place] [address] [place] [phone] Social History Tobacco Use Types Packs/Day Years [...] on filedocumented in this encounter Care Teams Vocational Training Director Relationship Specialty Start Date End Date Shannan Mcnulty MD [facility] [place] [address] PCP - General Internal Medicine 01/05/24 documented as of this encounter
--- OUTSIDE RECORDS SUMMARY | 2024-08-09 13:44 | XMS_ITS | Encounter Summary ---
Author Organization [facility], Address [address] [address] Phone Care Team Providers Care Undercoat Sprayer Name Role Phone Shannan Mcnulty MD Primary Care Provider [phone] Reason for Visit * Reason Comments Med Refill Encounter Details Date Type Department Care Team (Late st Contact Info) Description 04/07/2020 Refill [facility] [address] [place] [address] Evens Koch MD [address] [place] [address] [place] [address] Social History Tobacco Use Types Packs/Day Years [...] on filedocumented in this encounter Care Teams Undercoat Sprayer Relationship Specialty Start Date End Date Shannan Mcnulty MD [facility] [place] [address] PCP - General Internal Medicine 01/05/24 documented as of this encounter
--- OUTSIDE RECORDS SUMMARY | 2024-08-09 13:44 | XMS_ITS | Encounter Summary ---
Author Organization [facility], Address [address] [place] [address] Phone Care Team Providers Care Communications Department Chair Name Role Phone Shannan Mcnulty MD Primary Care Provider [phone] Reason for Visit * Reason Comments Med Refill Encounter Details Date Type Department Care Team (Late st Contact Info) Description 06/14/2024 Refill [facility] - [facility] [address] [place] [phone] Niels Nagy MD [address] [place] [phone] Social History Tobacco Use Types Packs/Day Years [...] on filedocumented in this encounter Care Teams Communications Department Chair Relationship Specialty Start Date End Date Shannan Mcnulty MD [facility] [place] [address] PCP - General Internal Medicine 01/05/24 documented as of this encounter
--- OUTSIDE RECORDS SUMMARY | 2024-08-09 13:44 | XMS_ITS | Encounter Summary ---
Author Organization [facility], Address [address] [address] Phone Care Team Providers Care Ecological Economist Name Role Phone Shannan Mcnulty MD Primary Care Provider [phone] Reason for Visit * Reason Comments Med Refill Encounter Details Date Type Department Care Team (Late st Contact Info) Description 07/02/2019 Refill [facility] [address] [place] [address] Evens Koch MD [address] [place] [address] [place] [address] Social History Tobacco Use Types Packs/Day Years [...] on filedocumented in this encounter Care Teams Ecological Economist Relationship Specialty Start Date End Date Shannan Mcnulty MD [facility] [place] [address] PCP - General Internal Medicine 01/05/24 documented as of this encounter
--- OUTSIDE RECORDS SUMMARY | 2024-08-09 13:44 | XMS_ITS | Encounter Summary ---
Author Organization [facility] Address [address] [place] [address] Phone Care Team Providers Care Cyber Systems Administrator Name Role Phone Shannan Mcnulty MD Primary Care Provider [phone] Encounter Details Date Type Department Care Team (Late st Contact Info) Description 07/24/2024 Documentation Only [facility] [place], [address] [place] [address] Lucille Conrad [address] [place] [phone] Social History Tobacco Use Types Packs/Day Years [...] on filedocumented in this encounter Care Teams Cyber Systems Administrator Relationship Specialty Start Date End Date Shannan Mcnulty MD [address] [place] [address] PCP - General Internal Medicine 01/05/24 documented as of this encounter
--- OUTSIDE RECORDS SUMMARY | 2024-08-09 13:44 | XMS_ITS | Encounter Summary ---
Author Organization [facility] [place], Address [address] [place] [address] Phone Care Team Providers Care Quality Officer Name Role Phone Shannan Mcnulty MD Primary Care Provider [phone] Reason for Visit * Reason Comments Med Refill Encounter Details Date Type Department Care Team (Late st Contact Info) Description 09/21/2020 Refill [facility] [address] [place] [address] Niels Nagy MD [address] [place] [address] [place] [address] Social History Tobacco Use Types Packs/Day Years [...] on filedocumented in this encounter Care Teams Quality Officer Relationship Specialty Start Date End Date Shannan Mcnulty MD [facility] [place] [address] PCP - General Internal Medicine 01/05/24 documented as of this encounter
--- OUTSIDE RECORDS SUMMARY | 2024-08-09 13:44 | XMS_ITS | Encounter Summary ---
Author Organization [facility] Address [address] [place] [address] Phone Care Team Providers Care Foreign Diplomat Name Role Phone Shannan Mcnulty MD Primary Care Provider [phone] Encounter Details Date Type Department Care Team (Late st Contact Info) Description 01/05/2024 Documentation Only [facility] [place], [address] [place] [address] Lucille Conrad [address] [place] [phone] Social History Tobacco Use Types Packs/Day Years [...] on filedocumented in this encounter Care Teams Foreign Diplomat Relationship Specialty Start Date End Date Shannan Mcnulty MD [address] [place] [address] PCP - General Internal Medicine 01/05/24 documented as of this encounter
--- OUTSIDE RECORDS SUMMARY | 2024-08-09 13:44 | XMS_ITS | Encounter Summary ---
Author Organization [facility] Address [address] [place] [address] Care Team Providers Care Pastrycook Name Role Phone Shannan Mcnulty MD Primary Care Provider Reason for Visit * Reason Comments Shortness of Breath +RSV last week - sen t in by PCP today after completing round of solumedrol, had out patient xray and uncertain of result Encounter Details Date Type Department Care Team (Late st Contact Info) Description 07/19/2024 9:00 PM EST - 07/20/2024 1:12 AM EST Emergency [facility] Emergency [address] [place] [phone] Dyspnea, unspecified type (Primary Dx); Mild intermittent [...] soon! Thank you for coming to the [facility] Emergency Department today. Our entire team works [...] through Care Everywhere. * Asthma: General Info (Khmer) documented in this encounter Medications at Time [...] Procedure Abnormality Status --------- ------ CBC auto differential[[id number]] Abnormal Final result Please view results for [...] Signed Date: 07/20/2024 11:17 ET Workstation ID: [id number] Transcribed By: Self Edit Transcribed Date: 07/20/2024 [...] Signed Date: 07/20/2024 11:17 ET Workstation ID: [id number] Transcribed By: Self Edit Transcribed Date: 07/20/2024 11:17 ET Jemal Camacho MD IMG XR PROCEDURES Final Result * Troponin I high sensitivity (07/19/2024 8:22 PM EST) High Sensitivity Troponin I 6 <=54 ng/L LAB CHEMISTRY METHOD 07/19/2024 9:22 PM EST [facility] Blood Venous blood specimen / Unknown Venipuncture / Unknown 07/19/2024 8:22 PM EST 07/19/2024 8:55 PM EST Narrative [facility] - 07/19/2024 9:22 PM EST High levels of biotin in samples may falsely decrease hsTroponin values. ??Use caution when interpreting hsTroponin results in patients taking biotin who exhibit renal impairment (eGFR <60) or in patients taking more than 20 mg/day of biotin. Jemal Camacho MD LAB BLOOD ORDERABLES Final Resu lt [facility] [address] [place] [address], [place] [phone] * (ABNORMAL) CBC auto differential (07/19/2024 4:56 PM EST) WBC 15.6(H) 4.8 - 10.8 K/mcL LAB HEMETOLOGY METHOD 07/19/2024 5:21 PM EST [facility] RBC 5.10(H) 3.80 - 4.80 M/mcL LAB HEMETOLOGY METHOD 07/19/2024 5:21 PM [facility] Hemoglobin 14.9 11.5 - 16.0 g/dL LAB HEMETOLOGY METHOD 07/19/2024 5:21 PM EST [facility] Hematocrit 45.5 35.0 - 47.0 % LAB HEMETOLOGY METHOD 07/19/2024 5:21 PM EST [facility] MCV 88.9 79.0 - 98.0 FL LAB HEMETOLOGY METHOD 07/19/2024 5:21 PM [facility] MCH 29.1 27.0 - 32.0 pcg LAB HEMETOLOGY METHOD 07/19/2024 5:21 PM EST [facility] MCHC 32.7 32.0 - 37.0 [...] LAB HEMETOLOGY METHOD 07/19/2024 5:21 PM EST [facility] Immature Granulocytes Absolute 0.68(H) 0.00 - 0.03 K/mcL LAB HEMETOLOGY METHOD 07/19/2024 5:21 PM EST [facility] Blood Venous blood specimen / Unknown Venipuncture / Unknown 07/19/2024 4:56 PM EST 07/19/2024 5:12 PM EST Jemalsabi Camacho MD LAB BLOOD ORDERABLES Final Resu lt Performing Organization Address [facility]/ZIP Co de Phone Number [facility] [address] [place] [address], [place] [phone] * Troponin I high sensitivity (07/19/2024 4:56 PM EST) [facility] High Sensitivity Troponin I 5 <=54 ng/L LAB CHEMISTRY METHOD 07/19/2024 5:46 PM EST [facility] Blood Venous blood specimen / Unknown Venipuncture / Unknown 07/19/2024 4:56 PM EST 07/19/2024 5:12 PM EST Narrative [facility] - 07/19/2024 5:46 PM EST High levels of biotin in samples may falsely decrease hsTroponin values. ??Use caution when interpreting hsTroponin results in patients taking biotin who exhibit renal impairment (eGFR <60) or in patients taking more than 20 mg/day of biotin. us Jemal Camacho MD LAB BLOOD ORDERABLES Final Resu lt Performing Organization Address City/[facility]/ZIP Co de Phone Number [facility] [address] [place] [address], [place] [phone] * (ABNORMAL) Basic metabolic panel (07/19/2024 4:56 [...] 23.7 LAB CHEMISTRY METHOD 07/19/2024 5:43 PM [facility] Calcium 8.9 8.5 - 10.5 mg/dL LAB CHEMISTRY METHOD 07/19/2024 5:43 PM [facility] Blood Venous blood specimen / Unknown Venipuncture / Unknown 07/19/2024 4:56 PM EST 07/19/2024 5:12 PM EST us Jemalsabi Camacho MD LAB BLOOD ORDERABLES Final Resu lt [facility] [address] [place] [address], * ECG 12 lead (07/19/2024 4:51 PM EST) Ventricular Rate ECG 74 BPM GEMUSE Atrial Rate 74 BPM GEMUSE P-R Interval 176 ms GEMUSE QRS Duration 94 ms GEMUSE Q-T Interval 416 ms GEMUSE QTc 461 ms GEMUSE P Wave [place] 16 degrees GEMUSE R [place] 18 degrees GEMUSE T [place] 76 degrees GEMUSE ECG Interpretation Normal sinus rhythm Possible Inferior infarct (cited on or before 04-OCT-2022) Abnormal ECG When compared with ECG of 04-OCT-2022 10:27, [place] interval has decreased Confirmed by CRISTIAN CAIN [...] 07/19/2024 documented in this encounter Care Teams Pastrycook Relationship Specialty Start Date End Date Shannan Mcnulty MD [address] [place] [phone] PCP - General Internal Medicine 06/16/24 documented as of this encounter
--- OUTSIDE RECORDS SUMMARY | 2024-08-09 13:44 | XMS_ITS | Encounter Summary ---
Author Organization [facility] [place], Address [address] [place] [address] Phone Care Team Providers Care Fish Peddler Name Role Phone Shannan Mcnulty MD Primary Care Provider [phone] Reason for Visit * Reason Comments Med Refill Encounter Details Date Type Department Care Team (Late st Contact Info) Description 10/01/2020 Refill [facility] [address] [place] [address] Niels Nagy MD [address] [place] [address] [place] [address] Social History Tobacco Use Types Packs/Day Years [...] on filedocumented in this encounter Care Teams Fish Peddler Relationship Specialty Start Date End Date Shannan Mcnulty MD [facility] [place] [address] PCP - General Internal Medicine 01/05/24 documented as of this encounter
--- OUTSIDE RECORDS SUMMARY | 2024-08-09 13:45 | XMS_ITS | Clinical Summary ---
Author Organization [facility] Address [address] [place] [address] Phone Care Team Providers Care Surgical Aide Name Role Phone Shannan Mcnulty MD Primary Care Provider [phone] Allergies Active Allergy Reactions Criticality Noted Date [...] PM EST - 07/20/2024 1:12 AM EST [facility] Emergency [address] [place] [phone] Dyspnea, unspecified type (Primary Dx); Mild intermittent asthma with exacerbation Discharge Disposition: Home or Self Care 06/16/2024 1:55 PM EST - 06/16/2024 3:56 PM EST [facility] Emergency [address] [place] [phone] Bassam Mejia MD Pain of left lower [...] Signed Date: 07/20/2024 11:17 ET Workstation ID: [id number] Transcribed By: Self Edit Transcribed Date: 07/20/2024 [...] Signed Date: 07/20/2024 11:17 ET Workstation ID: [id number] Transcribed By: Self Edit Transcribed Date: 07/20/2024 [...] Resu lt [facility] [address] [place] [address], * (ABNORMAL) CBC auto differential (07/19/2024 4:56 PM EST) Only the most recent of2 resultswithin the time period is included. WBC 15.6(H) 4.8 - 10.8 K/mcL LAB HEMETOLOGY METHOD 07/19/2024 5:21 PM [facility] RBC 5.10(H) 3.80 - 4.80 M/mcL LAB HEMETOLOGY METHOD 07/19/2024 5:21 PM [facility] Hemoglobin 14.9 11.5 - 16.0 g/dL LAB HEMETOLOGY METHOD 07/19/2024 5:21 PM [facility] Hematocrit 45.5 35.0 - 47.0 % LAB HEMETOLOGY METHOD 07/19/2024 5:21 PM [facility] MCV 88.9 79.0 - 98.0 FL LAB HEMETOLOGY METHOD 07/19/2024 5:21 PM [facility] MCH 29.1 27.0 - 32.0 pcg LAB HEMETOLOGY METHOD 07/19/2024 5:21 PM [facility] MCHC 32.7 32.0 - 37.0 g/dL LAB HEMETOLOGY METHOD 07/19/2024 5:21 PM [facility] RDW 13.3 11.0 - 15.0 % LAB HEMETOLOGY METHOD 07/19/2024 5:21 PM [facility] Platelets 321 130 - 400 K/mcL LAB HEMETOLOGY METHOD 07/19/2024 5:21 PM [facility] MPV 10.4 7.0 - 11.0 FL LAB HEMETOLOGY METHOD 07/19/2024 5:21 PM [facility] NRBC 0.0 <1.0 % LAB HEMETOLOGY METHOD 07/19/2024 5:21 PM [facility] NRBC Absolute 0.00 <0.10 K/mcL LAB HEMETOLOGY METHOD 07/19/2024 5:21 PM [facility] Neutrophils Relative 77.9 % LAB HEMETOLOGY METHOD 07/19/2024 5:21 PM [facility] Lymphocytes Relative 13.1 % LAB HEMETOLOGY METHOD 07/19/2024 5:21 PM [facility] Monocytes Relative 3.7 % LAB HEMETOLOGY METHOD 07/19/2024 5:21 PM [facility] Eosinophils Relative 0.2 % LAB HEMETOLOGY METHOD 07/19/2024 5:21 PM [facility] Basophils Relative 0.7 % LAB HEMETOLOGY METHOD 07/19/2024 5:21 PM [facility] Immature Granulocytes Relative 4.4 % LAB HEMETOLOGY METHOD 07/19/2024 5:21 PM [facility] Neutrophils Absolute 12.14(H) 1.50 - 7.00 K/mcL LAB HEMETOLOGY METHOD 07/19/2024 5:21 PM [facility] Lymphocytes Absolute 2.05 1.00 - 5.00 K/mcL LAB HEMETOLOGY METHOD 07/19/2024 5:21 PM [facility] Monocytes Absolute 0.58 0.20 - 1.00 K/mcL LAB HEMETOLOGY METHOD 07/19/2024 5:21 PM [facility] Eosinophils Absolute 0.03 0.00 - 0.50 K/mcL LAB HEMETOLOGY METHOD 07/19/2024 5:21 PM [facility] Basophils Absolute 0.11 0.00 - 0.20 K/mcL LAB HEMETOLOGY METHOD 07/19/2024 5:21 PM [facility] Immature Granulocytes Absolute 0.68(H) 0.00 - 0.03 K/mcL LAB HEMETOLOGY METHOD 07/19/2024 5:21 PM [facility] Blood Venous blood specimen / Unknown Venipuncture / Unknown 07/19/2024 4:56 PM EST 07/19/2024 5:12 PM EST Jemal Bob Camacho MD LAB BLOOD ORDERABLES Final Resu lt [facility] [address] [place] [address], [place] [phone] * (ABNORMAL) Basic metabolic panel (07/19/2024 4:56 PM EST) Only the most recent of2 resultswithin the time period is included. Sodium 134 133 - 145 mmol/L LAB CHEMISTRY METHOD 07/19/2024 5:43 PM [facility] Potassium 3.7 3.5 - 5.5 mmol/L LAB CHEMISTRY METHOD 07/19/2024 5:43 PM [facility] Chloride 100 96 - 110 mmol/L LAB CHEMISTRY METHOD 07/19/2024 5:43 PM [facility] CO2 26 21 - 32 mmol/L LAB CHEMISTRY METHOD 07/19/2024 5:43 PM [facility] Anion Gap 8 3 - 11 LAB CHEMISTRY METHOD 07/19/2024 5:43 PM [facility] Glucose 178(H) 70 - 100 mg/dL LAB CHEMISTRY METHOD 07/19/2024 5:43 PM [facility] BUN 18 5 - 25 mg/dL LAB CHEMISTRY METHOD 07/19/2024 5:43 PM [facility] Creatinine 0.76 0.50 - 1.10 mg/dL LAB CHEMISTRY METHOD 07/19/2024 5:43 PM [facility] eGFR 96 >=60 mL/min/1. 73m2 LAB CHEMISTRY METHOD 07/19/2024 5:43 PM [facility] Comment:Calculation based on the??Chronic Kidney Disease Epidemiology Collaboration (CKD-EPI) equation refit??without adjustment for race. BUN/Creatinine Ratio 23.7 LAB CHEMISTRY METHOD 07/19/2024 5:43 PM EST [facility] Calcium 8.9 8.5 - 10.5 mg/dL LAB CHEMISTRY METHOD 07/19/2024 5:43 PM EST [facility] Blood Venous blood specimen / Unknown Venipuncture / Unknown 07/19/2024 4:56 PM EST 07/19/2024 5:12 PM EST Jemalsabi Camacho MD LAB BLOOD ORDERABLES Final Resu lt [facility] [address] [place] [address], [place] [phone] * ECG 12 lead (07/19/2024 4:51 PM EST) Ventricular Rate ECG 74 BPM GEMUSE Atrial Rate 74 BPM GEMUSE P-R Interval 176 ms GEMUSE QRS Duration 94 ms GEMUSE Q-T Interval 416 ms GEMUSE QTc 461 ms GEMUSE P Wave [place] 16 degrees GEMUSE R [place] 18 degrees GEMUSE T [place] 76 degrees GEMUSE ECG Interpretation Normal sinus rhythm Possible Inferior infarct (cited on or before 04-OCT-2022) Abnormal ECG When compared with ECG of 04-OCT-2022 10:27, [place] interval has decreased Confirmed by ASIA CAIN [...] Signed Date: 06/16/2024 15:14 ET Workstation ID: [id number] Transcribed By: Self Edit Transcribed Date: 06/16/2024 [...] Signed Date: 06/16/2024 15:14 ET Workstation ID: [id number] Transcribed By: Self Edit Transcribed Date: 06/16/2024 15:13 ET us Rachel DOLAN CV VASCULAR PROCEDURES Fin al Result * Magnesium (06/16/2024 1:45 PM EST) Magnesium 2.2 1.9 - 2.6 mg/dL LAB CHEMISTRY METHOD 06/16/2024 2:32 PM EST [facility] Blood Venous blood specimen / Unknown Venipuncture / Unknown 06/16/2024 1:45 PM EST 06/16/2024 1:57 PM EST us Fran Pena MD LAB BLOOD ORDERABLES Final Res ult [facility] [address] [place] [address], from Last 3 Months Insurance [facility] [employer] Care Teams Surgical Aide Relationship Specialty Start Date End Date Shannan Mcnulty MD [address] [place] [address] PCP - General Internal Medicine 06/16/24
--- OUTSIDE RECORDS SUMMARY | 2024-08-09 13:45 | XMS_ITS | Encounter Summary ---
Author Organization [facility] [place], Address [address] [place] [address] Phone Care Team Providers Care Pre K Lead Teacher Name Role Phone Shannan Mcnulty MD Primary Care Provider [phone] Reason for Visit * Reason Comments Med Refill Encounter Details Date Type Department Care Team (Late st Contact Info) Description 12/24/2020 Refill [facility] [address] [place] [address] Niels Nagy MD [address] [place] [address] [place] [address] Social History Tobacco Use Types Packs/Day Years [...] filedocumented in this encounter Care Teams Pre K Lead Teacher Relationship Specialty Start Date End Date Shannan Mcnulty MD [facility] [place] [address] PCP - General Internal Medicine 01/05/24 documented as of this encounter
--- OUTSIDE RECORDS SUMMARY | 2024-08-09 13:45 | XMS_ITS | Clinical Summary ---
Author Organization [facility] [place], Address [address] [place] [address] [place] [address] Phone Care Team Providers Care Exceptional Children'S Teacher Name Role Phone Shannan Mcnulty MD Primary Care Provider [phone] Allergies Active Allergy Reactions Criticality Noted Date [...] Telephone [facility] [place] [address] [place] [phone] Neena Andrew 07/24/2024 Documentation Only [facility] [address] [place] [address] Lucille Conrad 06/18/2024 Telephone [facility] [address] [place] [address] [place], Lucille 06/14/2024 Refill [facility] [address] [place] [phone] Niels Nagy MD from Last 3 Months [...] Vaccine (#1) 2024 9, 05/21/2015, 04/12/[address] [place] [address] [address] [employer] Care Teams Exceptional Children'S Teacher Relationship Specialty Start Date End Date Shannan Mcnulty MD [address] [place] [address] PCP - General Internal Medicine 01/05/24
[2024-08-09 13:46] VITALS: BP 130/90; PULSE 85; TEMP 37.1; O2SAT 95; BMI 40.8
--- NOTE | 2024-08-09 13:46 | AM.OFFWIN_ITS ---
Intake Vital Signs 08/09/24 13:46 Height 5 ft 6 in Weight 253 lb BMI 40.8 BP 130/90 H Blood Pressure Location Rt brachial Position Sitting Pulse 85 Pulse Source Pulse Oximeter Temp 98.7 F Temp Source Oral Pulse Oximetry (%) 95 Intake Visit Reasons: EP fever, SOB, difficulty swallowing Patient Tobacco Use Status: Never used Tobacco Allergies amoxicillin Allergy (Unknown, Verified 08/06/24 13:33) hives hydromorphone [Dilaudid] Adverse Reaction (Unknown, Verified 08/06/24 13:33) makes her sick Environmental Allergy (Unknown, Uncoded 08/06/24 13:33) Unknown HPI HPI Comments History of Present Illness Details 49 y/o female patient who presents to [facility] walk in clinic with c/o URI symptoms. Pt c/o fevers, chills, wheezing and SOB. Pt has been seen here at the walk in clinic multiple times for RSV (07/10/2024) and Influenza A (08/06/24). All the times she was treated with very high Dose Steroids. Pt reports that higher Dose steroids have been working well, enabling her to breath and stop wheezing. She has been using her rescue inhaler more often plus Neb Treatments at home. Pt had CT[facility] chest/lungs at [facility] - Per Patient the results were negative. [facility] Medical History (Updated 08/09/24 @ 14:04 by Teena Kenney NP) Influenza A Surgical History History of surgery History of bone marrow donation History of myomectomy History of section Family History Father Neuropathy Diabetes mellitus Mother Afib CVD (cardiovascular disease) Myocardial infarction Brother Leukemia Brother No problems noted. Maternal Grandfather History of heart attack Maternal Grandmother Cancer Alzheimer's disease History of mastectomy Paternal Grandmother History of CVA (cerebrovascular accident) Paternal Grandfather Leukemia Maternal Aunt Ovarian cancer Brother No problems noted. Brother No problems noted. Son No problems noted. Social History Housing: House Alcohol intake: never Patient Tobacco Use Status: Never used Tobacco e-Cigarette/Vaping Use: Never Used service: No Current occupational status: employed Cognitive needs: No Hearing needs: No Vision needs: No Review of Systems Const All systems reviewed & are unremarkable except as noted in HPI and below Physical Exam Vital Signs: Last Vital Signs Temp 98.7 F 08/09/24 13:46 Pulse 85 08/09/24 13:46 BP 130/90 H 08/09/24 13:46 Pulse Ox 95 08/09/24 13:46 BMI result Body Mass Index 40.8 Const General: cooperative and no acute distress Nutritional Appearance: obese Orientation/consciousness: patient oriented x3 HEENT Head: Yes normocephalic Ears: external ears normal and TM abnormal with fluid behind the TM bilateral General nose exam: Normal external nose present Face and sinus: Yes sinuses nontender Mouth: moist mucous membranes Resp Effort & Inspection: normal respiratory effort, able to speak in complete sentences and Actively coughing Auscultation: no crackles, no rales, rhonchi throughout and wheezes scattered wheezes Cardio Heart sounds: S1 normal heart sound present and S2 normal heart sound present Neuro General: patient oriented x3 Assessment & Plan Assessment & Plan (1) Influenza A: Code(s): J10.1 - Influenza due to other identified influenza virus with other respiratory manifestations Plan: Ordered High Dose Prednisone; On days 1&2, take 3 tablets with breakfast. On days 3&4 take 2 tablets with breakfast, on days 5&6 take 1 tablet with breakfast. Ordered Chest Xray to r/i or r/o Pneumonia. Ordered Abx Empirically (2) Wheezing on auscultation: Code(s): R06.2 - Wheezing Plan: Ordered High Dose Prednisone; On days 1&2, take 3 tablets with breakfast. On days 3&4 take 2 tablets with breakfast, on days 5&6 take 1 tablet with breakfast. Ordered Chest Xray to r/i or r/o Pneumonia. Ordered Abx Empirically Orders: Orders XR chest 2V Today J10.1 - Influenza due to other identified influenza virus with other respiratory manifestations Medications: New azithromycin 500 mg PO DAILY 3 tabs 0RF 3 days J10.1 - Influenza due to other identified influenza virus with other respiratory manifestations, J22 - Unspecified acute lower respiratory infection doxycycline hyclate 100 mg PO BID 20 caps 0RF 10 days J10.1 - Influenza due to other identified influenza virus with other respiratory manifestations, J22 - Unspecified acute lower respiratory infection Changed From methylprednisolone PO PER PKG DIR for 6 days 21 ea 0RF J10.1 - Influenza due to other identified influenza virus with other respiratory manifestations, J22 - Unspecified acute lower respiratory infection To methylprednisolone On days 1&2, take 3 tablets with breakfast. On days 3&4 take 2 tablets with breakfast, on days 5&6 take 1 tablet with breakfast 21 ea 0RF J10.1 - Influenza due to other identified influenza virus with other respiratory manifestations, J22 - Unspecified acute lower respiratory infection Coding Level of Care Code Est Pt Level 4 (96373) Diagnoses Influenza A J10.1 Wheezing on auscultation R06.2 Time Spent (min) 20
== END 2024-08-09 14:28 | disposition home or self-care (01) ==
PROVIDERS: PCP Internal Medicine; Visit Provider Nurse Practitioner Family
DX: J10.1 Influenza due to other identified influenza virus with other respiratory manifestations (principal); R06.2 Wheezing

== ENCOUNTER → 2024-08-09 14:08 | Outpatient (BNV) | payer OTHER, SELFPAY | PROVIDERS: PCP Internal Medicine; Visit Provider Radiology Diagnostic Radiology | DX: R91.8 Other nonspecific abnormal finding of lung field (principal) | CPT/HCPCS: 71046 ==

== ENCOUNTER 2024-08-16 08:16 | Outpatient (AMB) | payer OTHER, SELFPAY ==
--- OUTSIDE RECORDS SUMMARY | 2024-08-16 08:25 | XMS_ITS | Encounter Summary ---
Author Organization [facility] [place], Address [address] [address] Phone Care Team Providers Care Field Care Manager Name Role Phone Shannan Mcnulty MD Primary Care Provider [phone] Reason for Visit * Reason Comments Med Refill Encounter Details Date Type Department Care Team (Late st Contact Info) Description 04/07/2020 Refill [facility] [address] [place] [address] Evens Koch MD [address] [place] [address] [place] [address] Social History Tobacco Use Types Packs/Day Years [...] on filedocumented in this encounter Care Teams Field Care Manager Relationship Specialty Start Date End Date Shannan Mcnulty MD [facility] [place] [address] PCP - General Internal Medicine 01/05/24 documented as of this encounter
--- OUTSIDE RECORDS SUMMARY | 2024-08-16 08:25 | XMS_ITS | Encounter Summary ---
Author Organization [facility] [place], Address [address] [address] Phone Care Team Providers Care Journal Box Inspector Name Role Phone Shannan Mcnulty MD Primary Care Provider [phone] Reason for Visit * Reason Comments Med Refill Encounter Details Date Type Department Care Team (Late st Contact Info) Description 07/02/2019 Refill [facility] [address] [place] [address] Evens oKch MD [address] [place] [address] [place] [address] Social History Tobacco Use Types Packs/Day Years [...] on filedocumented in this encounter Care Teams Journal Box Inspector Relationship Specialty Start Date End Date Shannan Mcnulty MD [facility] [place] [address] PCP - General Internal Medicine 01/05/24 documented as of this encounter
--- OUTSIDE RECORDS SUMMARY | 2024-08-16 08:25 | XMS_ITS | Encounter Summary ---
Author Organization [facility] Address [address] [place] [address] Phone Care Team Providers Care Pediatric Genetic Counselor Name Role Phone Shannan Mcnulty MD Primary Care Provider [phone] Encounter Details Date Type Department Care Team (Late st Contact Info) Description 07/24/2024 Documentation Only [facility] [place], [address] [place] [address] Lucille Conrad [address] [place] [phone] Social History Tobacco Use Types Packs/Day Years [...] on filedocumented in this encounter Care Teams Pediatric Genetic Counselor Relationship Specialty Start Date End Date Shannan Mcnulty MD [address] [place] [address] PCP - General Internal Medicine 01/05/24 documented as of this encounter
--- OUTSIDE RECORDS SUMMARY | 2024-08-16 08:25 | XMS_ITS | Encounter Summary ---
Author Organization [facility] [place], Address [address] [address] Phone Care Team Providers Care Chair Upholsterer Name Role Phone hSannan Mcnulty MD Primary Care Provider [phone] Reason for Visit * Reason Comments Med Refill Encounter Details Date Type Department Care Team (Late st Contact Info) Description 04/15/2020 Refill [facility] [address] [place] [address] Evens Koch MD [address] [place] [address] [place] [address] Social History Tobacco Use Types Packs/Day Years [...] on filedocumented in this encounter Care Teams Chair Upholsterer Relationship Specialty Start Date End Date Shannan Mcnulty [place] [address] PCP - General Internal Medicine 01/05/24 documented as of this encounter
--- OUTSIDE RECORDS SUMMARY | 2024-08-16 08:25 | XMS_ITS | Encounter Summary ---
Author Organization [facility] [place], Address [address] [place] [address] Phone Care Team Providers Care Site Auditor Name Role Phone Shannan Mcnulty MD Primary Care Provider [phone] Reason for Visit * Reason Comments Med Refill Encounter Details Date Type Department Care Team (Late st Contact Info) Description 09/15/2023 Refill [facility] [place] [facility] [address] [place] [phone] Niels Nagy MD [address] [place] [phone] Social History Tobacco Use Types Packs/Day Years [...] on filedocumented in this encounter Care Teams Site Auditor Relationship Specialty Start Date End Date Shannan Mcnulty MD [facility] [place] [address] PCP - General Internal Medicine 01/05/24 documented as of this encounter
--- OUTSIDE RECORDS SUMMARY | 2024-08-16 08:26 | XMS_ITS | Encounter Summary ---
Author Organization [facility] Address [address] [place] [address] Phone Care Team Providers Care Hoop Driving Machine Operator Helper Name Role Phone Shannan Mcnulty MD Primary Care Provider [phone] Encounter Details Date Type Department Care Team (Late st Contact Info) Description 01/05/2024 Documentation Only [facility] [place], [address] [place] [address] Lucille Conrad [address] [place] [phone] Social History Tobacco Use Types Packs/Day Years [...] on filedocumented in this encounter Care Teams Hoop Driving Machine Operator Helper Relationship Specialty Start Date End Date Shannan Mcnulty MD [address] [place] [address] PCP - General Internal Medicine 01/05/24 documented as of this encounter
--- OUTSIDE RECORDS SUMMARY | 2024-08-16 08:26 | XMS_ITS | Encounter Summary ---
Author Organization [facility] Address [address] [place] [address] Care Team Providers Care Heel Builder Machine Name Role Phone Shannan Mcnulty MD Primary Care Provider [phone] Reason for Visit * Reason Comments Shortness of Breath +RSV last week - sen t in by PCP today after completing round of solumedrol, had out patient xray and uncertain of result Encounter Details Date Type Department Care Team (Late st Contact Info) Description 07/19/2024 9:00 PM EST - 07/20/2024 1:12 AM EST Emergency [facility] Emergency [address] [place] [phone] Dyspnea, unspecified type (Primary Dx); Mild intermittent [...] soon! Thank you for coming to the [facility] Emergency Department today. Our entire team works [...] through Care Everywhere. * Asthma: General Info (Yakut) documented in this encounter Medications at Time [...] in this encounter Progress Notes * Val yS RN - 07/19/2024 4:27 PM EST PT [...] Procedure Abnormality Status --------- ------ CBC auto differential[[id number]] Abnormal Final result Please view results for [...] Signed Date: 07/20/2024 11:17 ET Workstation ID: [id number] Transcribed By: Self Edit Transcribed Date: 07/20/2024 [...] Signed Date: 07/20/2024 11:17 ET Workstation ID: [id number] Transcribed By: Self Edit Transcribed Date: 07/20/2024 11:17 ET Jemal Camacho MD IMG XR PROCEDURES Final Result * Troponin I high sensitivity (07/19/2024 8:22 PM EST) High Sensitivity Troponin I 6 <=54 ng/L LAB CHEMISTRY METHOD 07/19/2024 9:22 PM EST [facility] Blood Venous blood specimen / Unknown Venipuncture / Unknown 07/19/2024 8:22 PM EST 07/19/2024 8:55 PM EST Narrative [facility] - 07/19/2024 9:22 PM EST High levels of biotin in samples may falsely decrease hsTroponin values. ??Use caution when interpreting hsTroponin results in patients taking biotin who exhibit renal impairment (eGFR <60) or in patients taking more than 20 mg/day of biotin. Jemal Camacho MD LAB BLOOD ORDERABLES Final Resu lt [facility] [address] [place] [address], [place] [phone] * (ABNORMAL) CBC auto differential (07/19/2024 4:56 PM EST) WBC 15.6(H) 4.8 - 10.8 K/mcL LAB HEMETOLOGY METHOD 07/19/2024 5:21 PM EST [facility] RBC 5.10(H) 3.80 - 4.80 M/mcL LAB HEMETOLOGY METHOD 07/19/2024 5:21 PM [facility] Hemoglobin 14.9 11.5 - 16.0 g/dL LAB HEMETOLOGY METHOD 07/19/2024 5:21 PM EST [facility] Hematocrit 45.5 35.0 - 47.0 % LAB HEMETOLOGY METHOD 07/19/2024 5:21 PM EST [facility] MCV 88.9 79.0 - 98.0 FL LAB HEMETOLOGY METHOD 07/19/2024 5:21 PM [facility] MCH 29.1 27.0 - 32.0 pcg LAB HEMETOLOGY METHOD 07/19/2024 5:21 PM EST [facility] MCHC 32.7 32.0 - 37.0 g/dL LAB HEMETOLOGY METHOD 07/19/2024 5:21 PM [facility] RDW 13.3 11.0 - 15.0 % LAB HEMETOLOGY METHOD 07/19/2024 5:21 PM [facility] Platelets 321 130 - 400 K/mcL LAB HEMETOLOGY METHOD 07/19/2024 5:21 PM [facility] MPV 10.4 7.0 - 11.0 FL LAB HEMETOLOGY METHOD 07/19/2024 5:21 PM [facility] NRBC 0.0 <1.0 % LAB HEMETOLOGY METHOD 07/19/2024 5:21 PM [facility] NRBC Absolute 0.00 <0.10 K/mcL LAB HEMETOLOGY METHOD 07/19/2024 5:21 PM [facility] Neutrophils Relative 77.9 % LAB HEMETOLOGY METHOD 07/19/2024 5:21 PM [facility] Lymphocytes Relative 13.1 % LAB HEMETOLOGY METHOD 07/19/2024 5:21 PM [facility] Monocytes Relative 3.7 % LAB HEMETOLOGY METHOD 07/19/2024 5:21 PM [facility] Eosinophils Relative 0.2 % LAB HEMETOLOGY METHOD 07/19/2024 5:21 PM [facility] Basophils Relative 0.7 % LAB HEMETOLOGY METHOD 07/19/2024 5:21 PM [facility] Immature Granulocytes Relative 4.4 % LAB HEMETOLOGY METHOD 07/19/2024 5:21 PM [facility] Neutrophils Absolute 12.14(H) 1.50 - 7.00 K/mcL LAB HEMETOLOGY METHOD 07/19/2024 5:21 PM [facility] Lymphocytes Absolute 2.05 1.00 - 5.00 K/mcL LAB HEMETOLOGY METHOD 07/19/2024 5:21 PM [facility] Monocytes Absolute 0.58 0.20 - 1.00 K/mcL LAB HEMETOLOGY METHOD 07/19/2024 5:21 PM [facility] Eosinophils Absolute 0.03 0.00 - 0.50 K/mcL LAB HEMETOLOGY METHOD 07/19/2024 5:21 PM [facility] Basophils Absolute 0.11 0.00 - 0.20 K/mcL LAB HEMETOLOGY METHOD 07/19/2024 5:21 PM EST [facility] Immature Granulocytes Absolute 0.68(H) 0.00 - 0.03 K/mcL LAB HEMETOLOGY METHOD 07/19/2024 5:21 PM EST [facility] Blood Venous blood specimen / Unknown Venipuncture / Unknown 07/19/2024 4:56 PM EST 07/19/2024 5:12 PM EST Jemalsabi Camacho MD LAB BLOOD ORDERABLES Final Resu lt Performing Organization Address [facility]/ZIP Co de Phone Number [facility] [address] [place] [address], [place] [phone] * Troponin I high sensitivity (07/19/2024 4:56 PM EST) [facility] High Sensitivity Troponin I 5 <=54 ng/L LAB CHEMISTRY METHOD 07/19/2024 5:46 PM EST [facility] Blood Venous blood specimen / Unknown Venipuncture / Unknown 07/19/2024 4:56 PM EST 07/19/2024 5:12 PM EST Narrative [facility] - 07/19/2024 5:46 PM EST High levels of biotin in samples may falsely decrease hsTroponin values. ??Use caution when interpreting hsTroponin results in patients taking biotin who exhibit renal impairment (eGFR <60) or in patients taking more than 20 mg/day of biotin. us Jemal Camacho MD LAB BLOOD ORDERABLES Final Resu lt Performing Organization Address City/[facility]/ZIP Co de Phone Number [facility] [address] [place] [address], [place] [phone] * (ABNORMAL) Basic metabolic panel (07/19/2024 4:56 PM EST) Sodium 134 133 - 145 mmol/L LAB CHEMISTRY METHOD 07/19/2024 5:43 PM [facility] Potassium 3.7 3.5 - 5.5 mmol/L LAB CHEMISTRY METHOD 07/19/2024 5:43 PM [facility] Chloride 100 96 - 110 mmol/L LAB CHEMISTRY METHOD 07/19/2024 5:43 PM [facility] CO2 26 21 - 32 mmol/L LAB CHEMISTRY METHOD 07/19/2024 5:43 PM [facility] Anion Gap 8 3 - 11 LAB CHEMISTRY METHOD 07/19/2024 5:43 PM [facility] Glucose 178(H) 70 - 100 mg/dL LAB CHEMISTRY METHOD 07/19/2024 5:43 PM [facility] BUN 18 5 - 25 mg/dL LAB CHEMISTRY METHOD 07/19/2024 5:43 PM [facility] Creatinine 0.76 0.50 - 1.10 mg/dL LAB CHEMISTRY METHOD 07/19/2024 5:43 PM [facility] eGFR 96 >=60 mL/min/1. 73m2 LAB CHEMISTRY METHOD 07/19/2024 5:43 PM [facility] Comment:Calculation based on the??Chronic Kidney Disease Epidemiology Collaboration (CKD-EPI) equation refit??without adjustment for race. BUN/Creatinine Ratio 23.7 LAB CHEMISTRY METHOD 07/19/2024 5:43 PM [facility] Calcium 8.9 8.5 - 10.5 mg/dL LAB CHEMISTRY METHOD 07/19/2024 5:43 PM [facility] Blood Venous blood specimen / Unknown Venipuncture / Unknown 07/19/2024 4:56 PM EST 07/19/2024 5:12 PM EST us Jemalsabi Camacho MD LAB BLOOD ORDERABLES Final Resu lt [facility] [address] [place] [address], * ECG 12 lead (07/19/2024 4:51 PM EST) Ventricular Rate ECG 74 BPM GEMUSE Atrial Rate 74 BPM GEMUSE P-R Interval 176 ms GEMUSE QRS Duration 94 ms GEMUSE Q-T Interval 416 ms GEMUSE QTc 461 ms GEMUSE P Wave [place] 16 degrees GEMUSE R [place] 18 degrees GEMUSE T [place] 76 degrees GEMUSE ECG Interpretation Normal sinus rhythm Possible Inferior infarct (cited on or before 04-OCT-2022) Abnormal ECG When compared with ECG of 04-OCT-2022 10:27, MT interval has decreased Confirmed by CRISTIAN CAIN [...] mL, intravenous, Once in imaging, Starting on Elela 07/19/24 at 2219, For 1 dose Given [...] 07/19/2024 documented in this encounter Care Teams Heel Builder Machine Relationship Specialty Start Date End Date Shannan Mcnulty MD [address] [place] [phone] PCP - General Internal Medicine 06/16/24 documented as of this encounter
--- OUTSIDE RECORDS SUMMARY | 2024-08-16 08:26 | XMS_ITS | Encounter Summary ---
Author Organization [facility] [place], Address [address] [place] [address] Phone Care Team Providers Care Invoicing Specialist Name Role Phone Shannan Mcnulty MD Primary Care Provider [phone] Reason for Visit * Reason Comments Med Refill Encounter Details Date Type Department Care Team (Late st Contact Info) Description 12/24/2020 Refill [facility] [address] [place] [address] Niels Nagy MD [address] [place] [address] [place] [address] Social History Tobacco Use Types Packs/Day Years [...] on filedocumented in this encounter Care Teams Invoicing Specialist Relationship Specialty Start Date End Date Shannan Mcnulty MD [facility] [place] [address] PCP - General Internal Medicine 01/05/24 documented as of this encounter
--- OUTSIDE RECORDS SUMMARY | 2024-08-16 08:26 | XMS_ITS | Encounter Summary ---
Author Organization [facility] [place], Address [address] [place] [address] Phone Care Team Providers Care Technical Document Writer Name Role Phone Shannan Mcnulty MD Primary Care Provider [phone] Reason for Visit * Reason Comments Med Refill Encounter Details Date Type Department Care Team (Late st Contact Info) Description 10/01/2020 Refill [facility] [address] [place] [address] Niels Nagy MD [address] [place] [address] [place] [address] Social History Tobacco Use Types Packs/Day Years [...] on filedocumented in this encounter Care Teams Technical Document Writer Relationship Specialty Start Date End Date Shannan Mcnulty MD [facility] [place] [address] PCP - General Internal Medicine 01/05/24 documented as of this encounter
--- OUTSIDE RECORDS SUMMARY | 2024-08-16 08:26 | XMS_ITS | Encounter Summary ---
Author Organization [facility] Address [address] [place] [address] Phone Care Team Providers Care Manager Produce Name Role Phone Shannan Mcnulty MD Primary Care Provider [phone] Encounter Details Date Type Department Care Team (Late st Contact Info) Description 07/26/2024 Telephone [facility] [place], [address] [place] [phone] Neena Andrew [address] [place] [phone] Social History Tobacco Use Types Packs/Day Years [...] 07/26/2024 3:51 PM EST Requested records from [facility]. Will scan to chart once they arrive. * Telephone Encounter - Neena Andrew - 07/26/2024 9:43 AM EST Nadia Leyva called to cx appt because she's sick and will call back when she feels better. She reported Ct scan and lab work done at [facility] last week. Thanks documented in this encounter Plan of Treatment Not on file documented as of this encounter Visit Diagnoses Not on filedocumented in this encounter Care Teams Manager Produce Relationship Specialty Start Date End Date Shannan Mcnulty MD [address] [place] [address] PCP - General Internal Medicine 01/05/24 documented as of this encounter
--- OUTSIDE RECORDS SUMMARY | 2024-08-16 08:26 | XMS_ITS | Clinical Summary ---
Author Organization [facility] Address [address] [place] [address] Phone Care Team Providers Care Iron Installer Name Role Phone Shannan Mcnulty MD Primary Care Provider [phone] Allergies Active Allergy Reactions Criticality Noted Date [...] PM EST - 07/20/2024 1:12 AM EST [facility] Emergency [address] [place] [phone] Dyspnea, unspecified type (Primary Dx); Mild intermittent asthma with exacerbation Discharge Disposition: Home or Self Care 06/16/2024 1:55 PM EST - 06/16/2024 3:56 PM EST [facility] Emergency [address] [place] [phone] Bassam Mejia MD Pain of left lower [...] Td Vaccines (3 - Td or Tdap) 01/10/2019 01/10/2009, 05/09/2005 Cholesterol Screening (Lipid Panel) 07/26/2023 [...] Signed Date: 07/20/2024 11:17 ET Workstation ID: [id number] Transcribed By: Self Edit Transcribed Date: 07/20/2024 [...] Signed Date: 07/20/2024 11:17 ET Workstation ID: [id number] Transcribed By: Self Edit Transcribed Date: 07/20/2024 11:17 ET Jemal Camacho MD IMG XR PROCEDURES Final Result * Troponin I high sensitivity (07/19/2024 8:22 PM EST) Only the most recent of2 resultswithin the time period is included. High Sensitivity Troponin I 6 <=54 ng/L LAB CHEMISTRY METHOD 07/19/2024 9:22 PM EST [facility] Blood Venous blood specimen / Unknown Venipuncture / Unknown 07/19/2024 8:22 PM EST 07/19/2024 8:55 PM EST Narrative [facility] - 07/19/2024 9:22 PM EST High levels of biotin in samples may falsely decrease hsTroponin values. ??Use caution when interpreting hsTroponin results in patients taking biotin who exhibit renal impairment (eGFR <60) or in patients taking more than 20 mg/day of biotin. us Jemal Camacho MD LAB BLOOD ORDERABLES Final Resu lt [facility] [address] [place] [address], * (ABNORMAL) CBC auto differential (07/19/2024 4:56 PM EST) Only the most recent of2 resultswithin the time period is included. WBC 15.6(H) 4.8 - 10.8 K/mcL LAB HEMETOLOGY METHOD 07/19/2024 5:21 PM [facility] RBC 5.10(H) 3.80 - 4.80 M/mcL LAB HEMETOLOGY METHOD 07/19/2024 5:21 PM [facility] Hemoglobin 14.9 11.5 - 16.0 g/dL LAB HEMETOLOGY METHOD 07/19/2024 5:21 PM [facility] Hematocrit 45.5 35.0 - 47.0 % LAB HEMETOLOGY METHOD 07/19/2024 5:21 PM [facility] MCV 88.9 79.0 - 98.0 FL LAB HEMETOLOGY METHOD 07/19/2024 5:21 PM [facility] MCH 29.1 27.0 - 32.0 pcg LAB HEMETOLOGY METHOD 07/19/2024 5:21 PM [facility] MCHC 32.7 32.0 - 37.0 g/dL LAB HEMETOLOGY METHOD 07/19/2024 5:21 PM [facility] RDW 13.3 11.0 - 15.0 % LAB HEMETOLOGY METHOD 07/19/2024 5:21 PM [facility] Platelets 321 130 - 400 K/mcL LAB HEMETOLOGY METHOD 07/19/2024 5:21 PM [facility] MPV 10.4 7.0 - 11.0 FL LAB HEMETOLOGY METHOD 07/19/2024 5:21 PM [facility] NRBC 0.0 <1.0 % LAB HEMETOLOGY METHOD 07/19/2024 5:21 PM [facility] NRBC Absolute 0.00 <0.10 K/mcL LAB HEMETOLOGY METHOD 07/19/2024 5:21 PM [facility] Neutrophils Relative 77.9 % LAB HEMETOLOGY METHOD 07/19/2024 5:21 PM [facility] Lymphocytes Relative 13.1 % LAB HEMETOLOGY METHOD 07/19/2024 5:21 PM [facility] Monocytes Relative 3.7 % LAB HEMETOLOGY METHOD 07/19/2024 5:21 PM [facility] Eosinophils Relative 0.2 % LAB HEMETOLOGY METHOD 07/19/2024 5:21 PM [facility] Basophils Relative 0.7 % LAB HEMETOLOGY METHOD 07/19/2024 5:21 PM [facility] Immature Granulocytes Relative 4.4 % LAB HEMETOLOGY METHOD 07/19/2024 5:21 PM [facility] Neutrophils Absolute 12.14(H) 1.50 - 7.00 K/mcL LAB HEMETOLOGY METHOD 07/19/2024 5:21 PM [facility] Lymphocytes Absolute 2.05 1.00 - 5.00 K/mcL LAB HEMETOLOGY METHOD 07/19/2024 5:21 PM [facility] Monocytes Absolute 0.58 0.20 - 1.00 K/mcL LAB HEMETOLOGY METHOD 07/19/2024 5:21 PM [facility] Eosinophils Absolute 0.03 0.00 - 0.50 K/mcL LAB HEMETOLOGY METHOD 07/19/2024 5:21 PM [facility] Basophils Absolute 0.11 0.00 - 0.20 K/mcL LAB HEMETOLOGY METHOD 07/19/2024 5:21 PM [facility] Immature Granulocytes Absolute 0.68(H) 0.00 - 0.03 K/mcL LAB HEMETOLOGY METHOD 07/19/2024 5:21 PM [facility] Blood Venous blood specimen / Unknown Venipuncture / Unknown 07/19/2024 4:56 PM EST 07/19/2024 5:12 PM EST Jemal Bob Camacho MD LAB BLOOD ORDERABLES Final Resu lt [facility] [address] [place] [address], [place] [phone] * (ABNORMAL) Basic metabolic panel (07/19/2024 4:56 PM EST) Only the most recent of2 resultswithin the time period is included. Sodium 134 133 - 145 mmol/L LAB CHEMISTRY METHOD 07/19/2024 5:43 PM [facility] Potassium 3.7 3.5 - 5.5 mmol/L LAB CHEMISTRY METHOD 07/19/2024 5:43 PM [facility] Chloride 100 96 - 110 mmol/L LAB CHEMISTRY METHOD 07/19/2024 5:43 PM [facility] CO2 26 21 - 32 mmol/L LAB CHEMISTRY METHOD 07/19/2024 5:43 PM [facility] Anion Gap 8 3 - 11 LAB CHEMISTRY METHOD 07/19/2024 5:43 PM [facility] Glucose 178(H) 70 - 100 mg/dL LAB CHEMISTRY METHOD 07/19/2024 5:43 PM [facility] BUN 18 5 - 25 mg/dL LAB CHEMISTRY METHOD 07/19/2024 5:43 PM [facility] Creatinine 0.76 0.50 - 1.10 mg/dL LAB CHEMISTRY METHOD 07/19/2024 5:43 PM [facility] eGFR 96 >=60 mL/min/1. 73m2 LAB CHEMISTRY METHOD 07/19/2024 5:43 PM [facility] Comment:Calculation based on the??Chronic Kidney Disease Epidemiology Collaboration (CKD-EPI) equation refit??without adjustment for race. BUN/Creatinine Ratio 23.7 LAB CHEMISTRY METHOD 07/19/2024 5:43 PM EST [facility] Calcium 8.9 8.5 - 10.5 mg/dL LAB CHEMISTRY METHOD 07/19/2024 5:43 PM EST [facility] Blood Venous blood specimen / Unknown Venipuncture / Unknown 07/19/2024 4:56 PM EST 07/19/2024 5:12 PM EST Jemalsabi Camacho MD LAB BLOOD ORDERABLES Final Resu lt [facility] [address] [place] [address], [place] [phone] * ECG 12 lead (07/19/2024 4:51 PM EST) Ventricular Rate ECG 74 BPM GEMUSE Atrial Rate 74 BPM GEMUSE P-R Interval 176 ms GEMUSE QRS Duration 94 ms GEMUSE Q-T Interval 416 ms GEMUSE QTc 461 ms GEMUSE P Wave [place] 16 degrees GEMUSE R [place] 18 degrees GEMUSE T [place] 76 degrees GEMUSE ECG Interpretation Normal sinus rhythm Possible Inferior infarct (cited on or before 04-OCT-2022) Abnormal ECG When compared with ECG of 04-OCT-2022 10:27, [place] interval has decreased Confirmed by ASIA CAIN [...] Signed Date: 06/16/2024 15:14 ET Workstation ID: [id number] Transcribed By: Self Edit Transcribed Date: 06/16/2024 [...] Signed Date: 06/16/2024 15:14 ET Workstation ID: [id number] Transcribed By: Self Edit Transcribed Date: 06/16/2024 15:13 ET us Rachel DOLAN CV VASCULAR PROCEDURES Fin al Result * Magnesium (06/16/2024 1:45 PM EST) Magnesium 2.2 1.9 - 2.6 mg/dL LAB CHEMISTRY METHOD 06/16/2024 2:32 PM EST [facility] Blood Venous blood specimen / Unknown Venipuncture / Unknown 06/16/2024 1:45 PM EST 06/16/2024 1:57 PM EST us Fran Pena MD LAB BLOOD ORDERABLES Final Res ult [facility] [address] [place] [address], from Last [address] [facility] [employer] Care Teams Iron Installer Relationship Specialty Start Date End Date Shannan Mcnulty MD [address] [place] [address] PCP - General Internal Medicine 06/16/24
--- OUTSIDE RECORDS SUMMARY | 2024-08-16 08:26 | XMS_ITS | Encounter Summary ---
Author Organization [facility], Address [address] [address] Phone Care Team Providers Care Rn Er Name Role Phone Shannan Mcnulty MD Primary Care Provider [phone] Reason for Visit * Reason Comments Med Refill Encounter Details Date Type Department Care Team (Late st Contact Info) Description 05/18/2020 Refill [facility] [address] [place] [address] Evens Koch MD [address] [place] [address] [place] [address] Social History Tobacco Use Types Packs/Day Years [...] filedocumented in this encounter Care Teams Rn Er Relationship Specialty Start Date End Date Shannan Mcnulty MD [facility] [place] [address] PCP - General Internal Medicine 01/05/24 documented as of this encounter
--- OUTSIDE RECORDS SUMMARY | 2024-08-16 08:26 | XMS_ITS | Encounter Summary ---
Author Organization [facility] Address [address] [place] [address] Phone Care Team Providers Care Pulping Machine Operator Name Role Phone Shannan Mcnulty MD Primary Care Provider [phone] Encounter Details Date Type Department Care Team (Late st Contact Info) Description 04/05/2024 Documentation Only [facility] [place], [address] [place] [address] Lucille Conrad [address] [place] [phone] Social History Tobacco Use Types Packs/Day Years [...] on filedocumented in this encounter Care Teams Pulping Machine Operator Relationship Specialty Start Date End Date Shannan Mcnulty MD [address] [place] [id number] PCP - General Internal Medicine 01/05/24 documented as of this encounter
--- OUTSIDE RECORDS SUMMARY | 2024-08-16 08:26 | XMS_ITS | Encounter Summary ---
Author Organization [facility], Address [address] [place] [address] Phone Care Team Providers Care Picc Nurse Name Role Phone Shannan Mcnulty MD Primary Care Provider [phone] Reason for Visit * Reason Comments Med Refill Encounter Details Date Type Department Care Team (Late st Contact Info) Description 06/14/2024 Refill [facility] [address] [place] [phone] Niels Nagy MD [address] [place] [phone] Social History Tobacco Use Types Packs/Day Years [...] on filedocumented in this encounter Care Teams Picc Nurse Relationship Specialty Start Date End Date Shannan Mcnulty MD [facility] [place] [address] PCP - General Internal Medicine 01/05/24 documented as of this encounter
--- OUTSIDE RECORDS SUMMARY | 2024-08-16 08:26 | XMS_ITS | Encounter Summary ---
Author Organization [facility], Address [address] [address] Phone Care Team Providers Care Clothing Trades Workers Name Role Phone Shannan Mcnulty MD Primary Care Provider [phone] Reason for Visit * Reason Comments Med Refill Encounter Details Date Type Department Care Team (Late st Contact Info) Description 07/15/2020 [facility]ill [facility] [address] [place] [address] Evens Koch MD [address] [place] [address] [place] [phone] Social History Tobacco Use Types Packs/Day Years [...] on filedocumented in this encounter Care Teams Clothing Trades Workers Relationship Specialty Start Date End Date Shannan Mcnulty MD [facility] [place] [address] PCP - General Internal Medicine 01/05/24 documented as of this encounter
--- OUTSIDE RECORDS SUMMARY | 2024-08-16 08:26 | XMS_ITS | Encounter Summary ---
Author Organization [facility], Address [address] [place] [address] Phone Care Team Providers Care Dental Assisting Instructor Name Role Phone Shannan Mcnulty MD Primary Care Provider [phone] Reason for Visit * Reason Comments Med Refill Encounter Details Date Type Department Care Team (Late st Contact Info) Description 09/21/2020 Refill [facility] [address] [place] [address] Niels Nagy MD [address] [place] [address] [place] [address] Social History Tobacco Use Types Packs/Day Years [...] on filedocumented in this encounter Care Teams Dental Assisting Instructor Relationship Specialty Start Date End Date Shannan Mcnulty MD [facility] [place] [address] PCP - General Internal Medicine 01/05/24 documented as of this encounter
--- OUTSIDE RECORDS SUMMARY | 2024-08-16 08:26 | XMS_ITS | Clinical Summary ---
Author Organization [facility], Address [address] [place] [address] [place] [address] Phone Care Team Providers Care Senior Supply Chain Analyst Name Role Phone Shannan Mcnulty MD Primary Care Provider [phone] Allergies Active Allergy Reactions Criticality Noted Date [...] Telephone [facility] [place] [address] [place] [phone] Neena Andrew 07/24/2024 Documentation Only [facility] [address] [place] [address] Lucille Conrad 06/18/2024 Telephone [facility] [place] [address] [place] [address] [place], Lucille 06/14/2024 Refill [facility] [address] [place] [phone] Niels Nagy MD from Last 3 Months [...] Vaccine (#1) 2024 9, 05/21/2015, 04/12/[address] [place] [address] [place] [address] Care Teams Senior Supply Chain Analyst Relationship Specialty Start Date End Date Shannan Mcnulty MD [address] [place] [phone] PCP - General Internal Medicine 01/05/24
--- NOTE | 2024-08-16 08:48 | A.OFFPC_ITS ---
Intake Visit Reasons: Discuss CT Scan Allergies amoxicillin Allergy (Unknown, Verified 08/16/24 08:48) hives hydromorphone [Dilaudid] Adverse Reaction (Unknown, Verified 08/16/24 08:48) makes her sick Environmental Allergy (Unknown, Uncoded 08/06/24 13:33) Unknown Medication List - Last Reconciled 08/16/24 by Shannan Mcnulty MD acetaminophen (Tylenol Extra Strength) 1,000 mg PO Q6H PRN albuterol sulfate 90 mcg/actuation (Ventolin HFA) 2 puffs inhalation Q4-6H PRN doxycycline hyclate 100 mg PO BID 10 days fluticasone propionate 50 mcg/actuation (Allergy Relief (fluticasone)) 2 sprays intranasal DAILY hydrochlorothiazide 25 mg PO DAILY ipratropium-albuterol 0.5 mg-3 mg(2.5 mg base)/3 mL 3 mL inhalation Q4-6H PRN loratadine (Claritin) 10 mg PO DAILY lorazepam 0.5 mg PO BEDTIME PRN 90 days losartan 50 mg PO DAILY metoprolol succinate ER 50 mg PO BID omeprazole 20 mg PO QAM Symbicort 160-4.5 mcg/actuation (budesonide-formoterol) 2 puffs inhalation BID 90 days NS valacyclovir 1,000 mg PO BID 2 days Ventolin HFA 90 mcg/actuation (albuterol sulfate) 1 inh inhalation QID PRN 30 days NS Tobacco use date assessed: 08/16/24 Dental Screening Dental Screen Date: 08/16/24 Did you have a dental visit in the last 12 months?: Yes Did you have a dental problem in the last 6 months where you did not have access to dental care?: No Was dental information given to patient?: Patient has dentist HPI Discuss CT Scan HPI Details History - The patient is a 49-year-old female pr esenting with persistent right upper lobe opacity. - Previous chest X-ray on 06/17/2024 daxa wed right upper lobe opacity. - Follow-up X-ray on 07/09/2024 confirmed persistence, suggesting scarring. - A CT scan was recommended to rule out neoplasm. - Persistent cough associated with previ ous RSV infection. - Ongoing symptoms include improvement w ith antibiotic and inhalers - Patient states she encountered injury with 3 Rib fractures where the shadow is on X ray in the past that could be the reason it keep showing, she no Hx of tobacco use Problem List - Persistent Right Upper Lobe Opacity - Cough - History of Respiratory Syncytial Virus (RSV) Infection - Rib Fractures right U ribs three of th em due to injury in the past Patient Instructions - Continue current medications as prescr ibed. - Monitor cough improvement. - Contact the office if symptoms persist or worsen within a few weeks. Review of Systems - General: No fever no chills - Neurological: No headaches no dizziness - Ear nose throat: No sore throat no hearing difficulty no ear pain - Cardiovascular: No syncope, no chest pain, no palpitations - Gastrointestinal: No nausea vomiting or diarrhea - Endocrine: No polyuria polydipsia no heat intolerance - Genitourinary: No dysuria , no blood in urine [facility] Medical History Influenza A Surgical History History of surgery History of bone marrow donation History of myomectomy History of section Family History Father Neuropathy Diabetes mellitus Mother Afib CVD (cardiovascular disease) Myocardial infarction Brother Leukemia Brother No problems noted. Maternal Grandfather History of heart attack Maternal Grandmother Cancer Alzheimer's disease History of mastectomy Paternal Grandmother History of CVA (cerebrovascular accident) Paternal Grandfather Leukemia Maternal Aunt Ovarian cancer Brother No problems noted. Brother No problems noted. Son No problems noted. Social History Housing: House Alcohol intake: never Patient Tobacco Use Status: Never used Tobacco e-Cigarette/Vaping Use: Never Used service: No Current occupational status: employed Cognitive needs: No Hearing needs: No Vision needs: No Questionnaire PHQ-9 Over the last 2 weeks, how often have you been bothered by any of the following problems? 1. Little interest or pleasure in doing things: not at all 2. Feeling down, depressed, or hopeless: not at all 3. Trouble falling or staying asleep, or sleeping too much: several days 4. Feeling tired or having little energy: more than half the days 5. Poor appetite or overeating: not at all 6. Feeling bad about yourself - or that you are a failure or have let yourself or your family down: not at all 7. Trouble concentrating on things, such as reading the newspaper or watching television: not at all 8. Moving or speaking so slowly that other people could have noticed. Or the opposite - being so fidgety or restless that you have been moving around a lot more than usual: not at all 9. Thoughts that you would be better off or of hurting yourself in some way: not at all Total score: 3 Depression Screening Interpretation: Negative Depression Screening Done: Yes 52869 - PHQ-9 Billing: Yes Source: Developed by Drs. Andriy Jaramillo, Gissell Paniagua, Jono Stone and colleagues, with an educational jessa from [employer]. Thrive Questionnaire Date Thrive assessed: 08/16/24 I am a: Patient What is your living situation today?: I have a steady place to live Within the past 12 months, did the food you bought not last and you didn't have the money to get more?: Never true Within the past 12 months, did you worry whether your food would run out before you got money to buy more?: Never true Do you have trouble paying for medicines?: No Do you have trouble getting transportation to medical appointments?: No Do you have trouble paying your heating and electricity bill?: No Do you have trouble taking care of your child, family member or friend?: Yes Do you have trouble with day-to-day activities such as bathing, preparing meals, shopping, managing finances, etc.?: No Are you currently unemployed and looking for a job?: No Are you interested in more education?: No Please select the resources that you would like help with: None Currently or been in a relationship where the following occur: No concerns reported THRIVE Score: 0 AUDIT C Alcohol Use Questionnaire (AUDIT-C) 1. How often do you have a drink containing alcohol?: Never 3. How often do you have six or more drinks on one occasion?: Never Total Score: 0 Score Reviewed/Action Taken: Yes JLUIS-7 AMB Questionnaire JLUIS-7 Date JLUIS - 7 assessed: 08/16/24 Feeling nervous, anxious, or on edge: 1 = Several days Not being able to stop or control worryin = Not at all Worrying too much about different things: 0 = Not at all Trouble relaxin = Several days Being so restless that it is hard to sit still: 0 = Not at all Becoming easily annoyed or irritable: 0 = Not at all Feeling afraid as if something awful might happen: 0 = Not at all Total JLUIS-7 score (0-4 normal; 5-9 mild; 10-14 moderate; 15-21 severe): 2 Source: Developed by Drs. Andriy Jaramillo, Gissell Paniagua, Jono Stone and colleagues, with an educational jessa from [employer]. JLUIS-7 Assessment Billing JLUIS-7 Assessment Tool: JLUIS-7 Assessment 05875 Physical exam (Primary Care) Tobacco/Smoking Status: Tobacco use Status Tobacco use date assessed 08/16/24 08/16/24 08:50 Patient Tobacco Use Status Never used Tobacco 08/16/24 08:50 e-Cigarette/Vaping Use Never Used 08/16/24 08:50 PHQ-9: PHQ-9 Score PHQ-9: Total score 3 08/16/24 09:37 Depression Screening Interpretation: Negative Thrive Assessment: Date of Thrive Assessment Date Thrive assessed 08/16/24 08/16/24 08:50 Currently or been in a relationship where the following occur: No concerns reported Telehealth Telehealth Telehealth Platform: [employer] Location of provider rendering services: practice address Location of patient: address on file Patient Identification confirmed using: Name, : Yes Telehealth method: video Patient verbally consented to treatment: Yes Patient verbally consented to billing insurance company: Yes Patient informed of any privacy concerns related to visit: Yes Minutes spent on Phone/Video with Pt.: 13 Coding Level of Care Code Tele Est Pt Level 3 (93120) Diagnoses Abnormal chest xray R93.89 Lung abnormality J98.4 History of rib fracture Z87.81 Additional Codes JLUIS-7 Assessment Billing - JLUIS-7 Assessment Tool: JLUIS-7 Assessment 73773 ([id number]) PHQ-9 - 20145 - PHQ-9 Billing: Yes ([id number]) Assessment & Plan Assessment & Plan (1) Abnormal chest xray: Code(s): R93.89 - Abnormal findings on diagnostic imaging of other specified body structures Category: Medical (2) Lung abnormality: Code(s): J98.4 - Other disorders of lung Category: Medical (3) History of rib fracture: Code(s): Z87.81 - Personal history of (healed) traumatic fracture Category: Medical Plan - The patient is a 52-year-old female presented to [facility] ER with a sudden onset of headache, speech difficulties, and left-sided weakness occurring on the day of admission. - The patient's medical background includes essential hypertension, PTSD, depression, anemia, previous CVA, GERD, hypothyroidism, and a history of a coiled brain aneurysm in 2001. - Initial symptoms subsided within an hour, thereafter revealing lingering speech disturbances and limb weakness. - Neurological evaluation suggested seizure versus TIA, with negative findings on head CT and CTA scans. - Laboratory evaluations indicated stable hemoglobin levels. she was in Hospital from Jul 29 till Aug 11 . Patient states she had another seizure like activity 2 days ago. She reports stammering, stuttering, and confusion lasting four to five minutes. Medications prescribed during hospitalization include topiramate and oxcarbazepine. - Oxcarbazepine was prescribed previously for PTSD by her Psych provider. The patient's neurologist appointment is scheduled in two weeks to further evaluate her seizure condition. she also had EEG in hospital which confirmed epilepsy - Socially, she has stopped driving and sold her car due to confusion-related concerns and safety. She relies on Social Security Disability benefits after being dismissed from employment due to medical-related work absences. Problem List - Seizure disorder - Essential Hypertension - Post-Traumatic Stress Disorder (PTSD) - Major Depressive Disorder - Anemia - Gastroesophageal Reflux Disease (GERD) - Hypothyroidism - Brain Aneurysm Status Post Coiling - Allergic Rhinitis - Hyperthyroidism - Muscle Spasms Patient Instructions - Refrain from driving until further evaluation by neurologist in two weeks. - Adhere to prescribed medication regimen, including oxcarbazepine, topiramate, and lisinopril. - Stay at home for safety to prevent possible seizure-related injury. - Arrange prescription refills through [email or web address]. - Report any increase in seizure activity or side effects from medications promptly. - Continue attending all scheduled medical appointments, particularly with the neurologist. Review of Systems. - General: No fever no chills - Neurological: No headaches no dizziness - Ear nose throat: No sore throat no hearing difficulty no ear pain - Cardiovascular: No syncope, no chest pain, no palpitations - Gastrointestinal: No nausea vomiting or diarrhea - Endocrine: No polyuria polydipsia no heat intolerance - Genitourinary: No dysuria , no blood in urine
== END 2024-08-16 09:46 | disposition home or self-care (01) ==
LOC: HO.HMCC 08:16
PROVIDERS: PCP Internal Medicine; Visit Provider Internal Medicine
DX: R93.89 Abnormal findings on diagnostic imaging of other specified body structures (principal); J98.4 Other disorders of lung; Z87.81 Personal history of (healed) traumatic fracture

== ENCOUNTER → 2024-08-16 08:16 | Outpatient (BNVA) | payer OTHER, SELFPAY | PROVIDERS: PCP Internal Medicine; Visit Provider Internal Medicine | DX: R93.89 Abnormal findings on diagnostic imaging of other specified body structures (principal); J98.4 Other disorders of lung; Z87.81 Personal history of (healed) traumatic fracture | CPT/HCPCS: 96127 ==

== ENCOUNTER 2024-10-05 13:29 | Outpatient (AMB) | payer OTHER, SELFPAY ==
[2024-10-05 13:40] VITALS: BP 164/82; PULSE 84; O2SAT 95; BMI 42.4
--- NOTE | 2024-10-05 13:40 | A.OFFPC_ITS ---
Vital Signs 10/05/24 13:40 Height 5 ft 6 in Weight 263 lb BMI 42.4 BP 164/82 H Blood Pressure Location Rt brachial Position Sitting Pulse 84 Pulse Source Pulse Oximeter Pulse Oximetry (%) 95 Oxygen Delivery Method Room Air Intake Visit Reasons: Annual PE Allergies amoxicillin Allergy (Unknown, Verified 10/05/24 13:41) hives hydromorphone [Dilaudid] Adverse Reaction (Unknown, Verified 10/05/24 13:41) makes her sick Environmental Allergy (Unknown, Uncoded 10/05/24 13:41) Unknown Medication List - Last Reconciled 10/05/24 by Shannan Mcnulty MD acetaminophen (Tylenol Extra Strength) 1,000 mg PO Q6H PRN albuterol sulfate 90 mcg/actuation (Ventolin HFA) 2 puffs inhalation Q4-6H PRN 30 days fluticasone propionate 50 mcg/actuation (Allergy Relief (fluticasone)) 2 sprays intranasal DAILY hydrochlorothiazide 25 mg PO DAILY ipratropium-albuterol 0.5 mg-3 mg(2.5 mg base)/3 mL 3 mL inhalation Q4-6H PRN loratadine (Claritin) 10 mg PO DAILY lorazepam 0.5 mg PO BEDTIME PRN 30 days losartan 50 mg PO DAILY metoprolol succinate ER 50 mg PO BID omeprazole 20 mg PO QAM Symbicort 160-4.5 mcg/actuation (budesonide-formoterol) 2 puffs inhalation BID 90 days NS valacyclovir 1,000 mg PO BID 2 days Ventolin HFA 90 mcg/actuation (albuterol sulfate) 1 inh inhalation QID PRN 30 days NS Tobacco use date assessed: 10/05/24 Dental Screening Dental Screen Date: 10/05/24 Did you have a dental visit in the last 12 months?: No Did you have a dental problem in the last 6 months where you did not have access to dental care?: No Was dental information given to patient?: Patient has dentist HPI Annual PE HPI Details Physical exam - The patient is a 49-year-old female pr esenting with blood pressure management and medication review. - High blood pressure readings have been associated with hospital environments or stress, specifically related to personal loss and familial responsibilities. - Lower extremity edema is noted, worsen ing by the end of the day with subsequent relief by morning, suggesting fluid retention. - She has a benign renal cyst identified , patient is being followed by Nephrology blood pressure medication through them - History of insomnia persists, impactin g nightly rest and necessitating occasional use of lorazepam for relief. Patient is requesting if she can take 1 every night just for short term until seen again As she is going through a very stressful time in her life - Issues with bloating and recent weight gain despite active attempts at lifestyle change, in conjunction with family history of thyroid issues, remain a concern. - Following previous imaging and tests, no abnormal findings were reported for pulmonary health, which eases past concerns about respiratory conditions. Patient is prediabetic with a history of morbid obesity Diet controlled encouraged Due for OBGYN visit and mammogram Last seen 1-1/2 year ago mammograms are through OBGYN Due for colonoscopy referral placed Health Maintenance - Weight management challenges due to si gnificant BMI of 42.4 addressed with lifestyle modification advice. - Encouragement for ongoing blood pressu re monitoring to track home versus hospital measurements. - Discussed the necessity of mammogram f ollow-up, scheduled for every two years. - Colonoscopy recommended, patient's fir st screening given her age. - Discussed family history, including sm oking-related risks and thyroid disease considerations. - Detailed past fasting glucose level in March measured at 111 mg/dL, considered elevated, advising further lab tests. [facility] - nephrology - OBGYN Medications - Hydrochlorothiazide 25 mg for hyperten svetlana - Lisinopril for hypertension management - Losartan for hypertension - Omeprazole 20 mg for GERD - Symbicort for respiratory management - Lorazepam for insomnia and anxiety as needed - Loratadine for allergic rhinitis Patient Instructions - Continue blood pressure monitoring reg ularly at home and report any concerning spikes. - Schedule and attend mammogram and firs t-time colonoscopy as per screening recommendations. - Maintain current medication regimen; c onsult for dosage changes if necessary. - Utilize breathing and relaxation techn iques to manage anxiety. - Incorporate appropriate portion-contro lled meals with an emphasis on including breakfast and reducing late-night snacks. - Follow-up on any lab tests and report results at next visit. Review of Systems - General: No fever no chills - Neurological: No headaches no dizzin ess - Ear nose throat: No sore throat no hearing difficulty no ear pain - Cardiovascular: No syncope, no chest pain, no palpitations - Gastrointestinal: No nausea vomiting or diarrhea - Endocrine: No polyuria polydipsia no heat intolerance - Genitourinary: No dysuria - Skin: No new complaints Physical Exam General: Cooperative, healthy appearing, comfortable, no acute distress Orientation: Patient oriented x3 Head: Normal to inspection Ears: Within normal limit visually Nose: Normal external nose present Face and sinus: Normal facial exam Eyes: Appearance normal, extraocular movement intact pupils reactive Neck: Normal visual inspection and supple Respiratory: Normal respiratory effort and able to speak in complete sentences. Clear to auscultation, no stridor Cardiovascular: S1 and S2 RRR Breast: No lumps felt GI: Normal to inspection. Soft to palpation and nontender Skin: Turgor normal, no acute findings Neuro: Patient oriented x3, motor sensory intact, balance intact, tandem pass Extremities: Normal to inspection [facility] Medical History Influenza A Surgical History History of surgery History of bone marrow donation History of myomectomy History of section Family History Father Neuropathy Diabetes mellitus Mother Afib CVD (cardiovascular disease) Myocardial infarction Brother Leukemia Brother No problems noted. Maternal Grandfather History of heart attack Maternal Grandmother Cancer Alzheimer's disease History of mastectomy Paternal Grandmother History of CVA (cerebrovascular accident) Paternal Grandfather Leukemia Maternal Aunt Ovarian cancer Brother No problems noted. Brother No problems noted. Son No problems noted. Social History Housing: House Alcohol intake: never Patient Tobacco Use Status: Never used Tobacco e-Cigarette/Vaping Use: Never Used service: No Current occupational status: employed Cognitive needs: No Hearing needs: No Vision needs: No Questionnaire PHQ-9 Over the last 2 weeks, how often have you been bothered by any of the following problems? 1. Little interest or pleasure in doing things: not at all 2. Feeling down, depressed, or hopeless: several days 3. Trouble falling or staying asleep, or sleeping too much: several days 4. Feeling tired or having little energy: not at all 5. Poor appetite or overeating: several days 6. Feeling bad about yourself - or that you are a failure or have let yourself or your family down: not at all 7. Trouble concentrating on things, such as reading the newspaper or watching television: not at all 8. Moving or speaking so slowly that other people could have noticed. Or the opposite - being so fidgety or restless that you have been moving around a lot more than usual: not at all 9. Thoughts that you would be better off or of hurting yourself in some way: not at all Total score: 3 Depression Screening Interpretation: Negative Depression Screening Done: Yes 84407 - PHQ-9 Billing: Yes Source: Developed by Drs. Andriy Jaramillo, Gissell Paniagua, Jono Stone and colleagues, with an educational jessa from [employer]. Thrive Questionnaire Date Thrive assessed: 10/05/24 I am a: Patient What is your living situation today?: I have a steady place to live Within the past 12 months, did the food you bought not last and you didn't have the money to get more?: Never true Within the past 12 months, did you worry whether your food would run out before you got money to buy more?: Never true Do you have trouble paying for medicines?: No Do you have trouble getting transportation to medical appointments?: No Do you have trouble paying your heating and electricity bill?: No Do you have trouble taking care of your child, family member or friend?: No Do you have trouble with day-to-day activities such as bathing, preparing meals, shopping, managing finances, etc.?: No Are you currently unemployed and looking for a job?: No Are you interested in more education?: No Please select the resources that you would like help with: None Currently or been in a relationship where the following occur: No concerns reported THRIVE Score: 0 AUDIT C Alcohol Use Questionnaire (AUDIT-C) 1. How often do you have a drink containing alcohol?: Never 3. How often do you have six or more drinks on one occasion?: Never Total Score: 0 Score Reviewed/Action Taken: Yes JLUIS-7 AMB Questionnaire JLUIS-7 Date JLUIS - 7 assessed: 10/05/24 Feeling nervous, anxious, or on edge: 1 = Several days Not being able to stop or control worryin = Not at all Worrying too much about different things: 1 = Several days Trouble relaxin = Several days Being so restless that it is hard to sit still: 0 = Not at all Becoming easily annoyed or irritable: 0 = Not at all Feeling afraid as if something awful might happen: 0 = Not at all Total JLUIS-7 score (0-4 normal; 5-9 mild; 10-14 moderate; 15-21 severe): 3 Source: Developed by Drs. Andriy Jaramillo, Gissell Paniagua, Jono Stone and colleagues, with an educational jessa from [employer]. JLUIS-7 Assessment Billing JLUIS-7 Assessment Tool: JLUIS-7 Assessment 62235 Physical exam (Primary Care) Vital Signs: Last Vital Signs Pulse 84 10/05/24 13:40 BP 164/82 H 10/05/24 13:40 Pulse Ox 95 10/05/24 13:40 Oxygen Delivery Method Room Air 10/05/24 13:40 BMI result Body Mass Index 42.4 Tobacco/Smoking Status: Tobacco use Status Tobacco use date assessed 10/05/24 10/05/24 13:42 Patient Tobacco Use Status Never used Tobacco 10/05/24 13:42 e-Cigarette/Vaping Use Never Used 10/05/24 13:42 PHQ-9: PHQ-9 Score PHQ-9: Total score 3 10/05/24 14:22 Depression Screening Interpretation: Negative Thrive Assessment: Date of Thrive Assessment Date Thrive assessed 10/05/24 10/05/24 13:42 Currently or been in a relationship where the following occur: No concerns reported Coding Level of Care Code Est Pt Level 3 (99813) Est Pt Prev Care 40-64y(60541) Diagnoses Encounter for general adult medical examination with abnormal findings Z00.01 Moderate persistent asthma without complication J45.40 Asthma complication type: uncomplicated Prediabetes R73.03 Hypertension, essential I10 Morbid obesity due to excess calories E66.01 Chronic GERD K21.9 Recurrent herpes labialis B00.1 Colon cancer screening Z12.11 Additional Codes JLUIS-7 Assessment Billing - JLUIS-7 Assessment Tool: JLUIS-7 Assessment 92903 ([id number]) PHQ-9 - 19030 - PHQ-9 Billing: Yes ([id number]) Assessment & Plan Assessment & Plan (1) Encounter for general adult medical examination with abnormal findings: Code(s): Z00.01 - Encounter for general adult medical examination with abnormal findings Category: Medical (2) Asthma, moderate persistent: Code(s): J45.40 - Moderate persistent asthma, uncomplicated Category: Medical Qualifiers: Asthma complication type: uncomplicated Qualified Code(s): J45.40 - Moderate persistent asthma, uncomplicated (3) Prediabetes: Code(s): R73.03 - Prediabetes Category: Medical (4) Hypertension, essential: Code(s): I10 - Essential (primary) hypertension Category: Medical (5) Morbid obesity due to excess calories: Code(s): E66.01 - Morbid (severe) obesity due to excess calories Category: Medical (6) Chronic GERD: Code(s): K21.9 - Gastro-esophageal reflux disease without esophagitis Category: Medical (7) Recurrent herpes labialis: Code(s): B00.1 - Herpesviral vesicular dermatitis Category: Medical (8) Colon cancer screening: Code(s): Z12.11 - Encounter for screening for malignant neoplasm of colon Category: Medical Plan Physical exam - The patient is a 49-year-old female presenting with blood pressure management and medication review. - High blood pressure readings have been associated with hospital environments or stress, specifically related to personal loss and familial responsibilities. - Lower extremity edema is noted, worsening by the end of the day with angel bsequent relief by morning, suggesting fluid retention. - She has a benign renal cyst identified, patient is being followed by Nephrology blood pressure medication through them - History of insomnia persists, impacting nightly rest and necessitating occasional use of lorazepam for relief. Patient is requesting if she can take 1 every night just for short term until seen again As she is going through a very stressful time in her life - Issues with bloating and recent weight gain despite active attempts at lifestyle change, in conjunction with family history of thyroid issues, remain a concern. - Following previous imaging and tests, no abnormal findings were reported for pulmonary health, which eases past concerns about respiratory conditions. Patient is prediabetic with a history of morbid obesity Diet controlled encouraged Due for OBGYN visit and mammogram Last seen 1-1/2 year ago mammograms are through OBGYN Due for colonoscopy referral placed [facility] - Weight management challenges due to significant BMI of 42.4 addressed with lifestyle modification advice. - Encouragement for ongoing blood pressure monitoring to track home versus hospital measurements. - Discussed the necessity of mammogram follow-up, scheduled for every two years. - Colonoscopy recommended, patient's first screening given her age. - Discussed family history, including smoking-related risks and thyroid disease considerations. - Detailed past fasting glucose level in March measured at 111 mg/dL, considered elevated, advising further lab tests. [facility] - nephrology - OBGYN Medications - Hydrochlorothiazide 25 mg for hypertension - Lisinopril for hypertension management - Losartan for hypertension - Omeprazole 20 mg for GERD - Symbicort for respiratory management - Lorazepam for insomnia and anxiety as needed - Loratadine for allergic rhinitis Patient Instructions - Continue blood pressure monitoring regularly at home and report any concerning spikes. - Schedule and attend mammogram and first-time colonoscopy as per screening recommendations. - Maintain current medication regimen; consult for dosage changes if necessary. - Utilize breathing and relaxation techniques to manage anxiety. - Incorporate appropriate portion-controlled meals with an emphasis on including breakfast and reducing late-night snacks. - Follow-up on any lab tests and report results at next visit. Orders: Orders Hemoglobin A1c Today B00.1 - Herpesviral vesicular dermatitis, E66.01 - Morbid (severe) obesity due to excess calories, I10 - Essential (primary) hypertension, J45.40 - Moderate persistent asthma, uncomplicated, K21.9 - Gastro-esophageal reflux disease without esophagitis, Z00.01 - Encounter for general adult medical examination with abnormal findings, Z68.39 - Body mass index [BMI] 39.0-39.9, adult Complete Blood Count Auto Diff Today B00.1 - Herpesviral vesicular dermatitis, E66.01 - Morbid (severe) obesity due to excess calories, I10 - Essential (primary) hypertension, J45.40 - Moderate persistent asthma, uncomplicated, K21. 9 - Gastro-esophageal reflux disease without esophagitis, Z00.01 - Encounter for general adult medical examination with abnormal findings, Z68.39 - Body mass index [BMI] 39.0-39.9, adult Comprehensive [place]. Panel Fast Today B00.1 - Herpesviral vesicular dermatitis, E66.01 - Morbid (severe) obesity due to excess calories, I10 - Essential (primary) hypertension, J45.40 - Moderate persistent asthma, uncomplicated, K21.9 - Gastro-esophageal reflux disease without esophagitis, Z00.01 - Encounter for general adult medical examination with abnormal findings, Z68.39 - Body m ass index [BMI] 39.0-39.9, adult Lipid Panel Today B00.1 - Herpesviral vesicular dermatitis, E66.01 - Morbid (severe) obesity due to excess calories, I10 - Essential (primary) hypertension, J45.40 - Moderate persistent asthma, uncomplicated, K21.9 - Gastro-esophageal reflux disease without esophagitis, Z00.01 - Encounter for general adult medical examination with abnormal findings, Z68.39 - Body mass index [BMI] 39.0-39.9, adult TSH reflex Free T4 Today B00.1 - Herpesviral vesicular dermatitis, E66.01 - Morbid (severe) obesity due to excess calories, I10 - Essential (primary) hypertension, J45.40 - Moderate persistent asthma, uncomplicated, K21.9 - Gastro-esophageal reflux disease without esophagitis, Z00.01 - Encounter for general adult medical examination with abnormal findings, Z68.39 - Body mass index [BMI] 39.0-39.9, adult Referrals Gastroenterology Referral Z12.11 - Encounter for screening for malignant neoplasm of colon Medications: Refilled lorazepam 0.5 mg PO BEDTIME 30 days PRN 30 tabs 2RF anxiety omeprazole 20 mg PO QAM 90 caps 0RF fluticasone propionate 50 mcg/actuation (Allergy Relief (fluticasone)) administer into each nostril 2 sprays intranasal DAILY 16 grams 1RF ipratropium-albuterol 0.5 mg-3 mg(2.5 mg base)/3 mL 3 mL inhalation Q4-6H PRN 90 mL 1RF wheezing metoprolol succinate ER 50 mg PO BID 180 tabs 0RF Symbicort 160-4.5 mcg/actuation (budesonide-formoterol) 2 puffs inhalation BID 90 days 3 multiple units 1RF NS
--- OUTSIDE RECORDS SUMMARY | 2024-10-05 13:50 | XMS_ITS | Clinical Summary ---
Author Organization [facility], Address [address] [place] [address] [place] [address] Phone Care Team Providers Care Associate Director Finance Name Role Phone Shannan Mcnulty MD Primary Care Provider Allergies Active Allergy Reactions Criticality Noted Date [...] Telephone [facility] [address] [place] [phone] Neena Andrew 07/24/2024 Documentation Only [facility] [address] [place] [address] Lucille Conrad from Last 3 Months Immunizations Immunization Administration Dates Next Due DT 05/09/2005 Influenza [...] Comments Breast Cancer Screening 1974 Pneumococcal Vaccine: Peds ( 0 to 5 Years) and At-Risk Patients (6 to 49 Years) (1 of 2 - PCV) 02/27/1980 Hepatitis B Vaccine (1 of 3 - 19+ 3-dose series) 1993 01/10/2009 Colorectal Cancer Screening: Annual FOBT 2023 Colorectal Cancer Screening: Colonoscopy 2023 Colorectal Cancer Screening: Sigmoidoscopy 2023 Influenza Vaccine (Season Ended) 2025 05/31/2019, 05/21/2015, 04/12/2008 Insurance [employer] Care Teams Associate Director Finance Relationship Specialty Start Date End Date Shannan Mcnulty MD [address] [place] [address] PCP - General Internal Medicine 01/05/24
--- OUTSIDE RECORDS SUMMARY | 2024-10-05 13:50 | XMS_ITS | Encounter Summary ---
Author Organization [facility], Address [address] [place] [address] Phone Care Team Providers Care Distribution Field Technician Name Role Phone Shannan Mcnulty MD Primary Care Provider [phone] Reason for Visit * Reason Comments Med Refill Encounter Details Date Type Department Care Team (Late st Contact Info) Description 10/01/2020 Refill [facility] [address] [place] [address] Niels Nagy MD [address] [place] [address] [place] [address] Social History Tobacco Use Types Packs/Day Years [...] on filedocumented in this encounter Care Teams Distribution Field Technician Relationship Specialty Start Date End Date Shannan Mcnulty MD [facility] [place] [address] PCP - General Internal Medicine 01/05/24 documented as of this encounter
--- OUTSIDE RECORDS SUMMARY | 2024-10-05 13:50 | XMS_ITS | Encounter Summary ---
Author Organization [facility] Address [address] [place] [address] Phone Care Team Providers Care Sales Performance Analyst Name Role Phone Shannan Mcnulty MD Primary Care Provider [phone] Encounter Details Date Type Department Care Team (Late st Contact Info) Description 07/24/2024 Documentation Only [facility] [place], [address] [place] [address] Lucille Conrad [address] [place] [phone] Social History Tobacco Use Types Packs/Day Years [...] on filedocumented in this encounter Care Teams Sales Performance Analyst Relationship Specialty Start Date End Date Shannan Mcnulty MD [address] [place] [id number] PCP - General Internal Medicine 01/05/24 documented as of this encounter
--- OUTSIDE RECORDS SUMMARY | 2024-10-05 13:50 | XMS_ITS | Encounter Summary ---
Author Organization [facility], Address [address] [place] [address] Phone Care Team Providers Care Cut To Length Operator Name Role Phone Shannan Mcnulty MD Primary Care Provider [phone] Reason for Visit * Reason Comments Med Refill Encounter Details Date Type Department Care Team (Late st Contact Info) Description 12/24/2020 Refill [facility] [address] [place] [address] Niels Nagy MD [address] [place] [address] [place] [address] Social History Tobacco Use Types Packs/Day Years [...] on filedocumented in this encounter Care Teams Cut To Length Operator Relationship Specialty Start Date End Date Shannan Mcnulty MD [facility] [address] PCP - General Internal Medicine 01/05/24 documented as of this encounter
--- OUTSIDE RECORDS SUMMARY | 2024-10-05 13:50 | XMS_ITS | Clinical Summary ---
Author Organization [facility] Address [address] [place] [address] Phone Care Team Providers Care English Professor Name Role Phone Shannan cMnulty MD Primary Care Provider [phone] Allergies Active Allergy Reactions Criticality Noted Date [...] to 10 days. 12 tablet 4 Active Active Problems Problem Noted Date Diagnosed Date Pain of left lower extremity 06/16/2024 Encounters Date Type Department Care Team Description 07/19/2024 9:00 PM EST - 07/20/2024 1:12 AM EST Emergency [facility] Emergency [address] [place] [address] Dyspnea, unspecified type (Primary Dx); Mild intermittent asthma with exacerbation Discharge Disposition: Home or Self Care from [...] of Health Screening 07/26/2023 COVID-19 Vaccine ( - season) 2024 Zoster Vaccines (1 of 2) 02/27/2024 Influenza Vaccine (Season Ended) 2025 05/31/2019, 03/17/2018, 06/07/2016, Additional history exists Hypertension/CHF/CAD Annual BMP Blood Test 07/19/2025 07/19/2024, [...] age to complete this topic Meningococcal B Vaccine Aged Out No l onger eligible based on patient's age to complete [...] 07/19/2024 4:51 PM EST ECG ANNOTATED 07/19/2024 from Last 3 Months Results * CT [...] Signed Date: 07/20/2024 11:17 ET Workstation ID: [id number] Transcribed By: Self Edit Transcribed Date: 07/20/2024 [...] Signed Date: 07/20/2024 11:17 ET Workstation ID: [id number] Transcribed By: Self Edit Transcribed Date: 07/20/2024 11:17 ET Jemal Camacho MD IMG XR PROCEDURES Final Result * Troponin I high sensitivity (07/19/2024 8:22 PM EST) Only the most recent of2 resultswithin the time period is included. High Sensitivity Troponin I 6 <=54 ng/L LAB CHEMISTRY METHOD 07/19/2024 9:22 PM EST [facility] Blood Venous blood specimen / Unknown Venipuncture / Unknown 07/19/2024 8:22 PM EST 07/19/2024 8:55 PM EST [facility] - 07/19/2024 9:22 PM EST High levels of biotin in samples may falsely decrease hsTroponin values. ??Use caution when interpreting hsTroponin results in patients taking biotin who exhibit renal impairment (eGFR <60) or in patients taking more than 20 mg/day of biotin. us Jemal B Doug JORDAN LAB BLOOD ORDERABLES Final Resu lt [facility] [address] [place] [address], [place] [phone] * (ABNORMAL) CBC auto differential (07/19/2024 4:56 PM EST) WBC 15.6(H) 4.8 - 10.8 K/mcL LAB HEMETOLOGY METHOD 07/19/2024 5:21 PM [facility] RBC 5.10(H) 3.80 - 4.80 M/mcL LAB HEMETOLOGY METHOD 07/19/2024 5:21 PM [facility] Hemoglobin 14.9 11.5 - 16.0 g/dL LAB HEMETOLOGY METHOD 07/19/2024 5:21 PM [facility] Hematocrit 45.5 35.0 - 47.0 % LAB HEMETOLOGY METHOD 07/19/2024 5:21 PM [facility] MCV 88.9 79.0 - 98.0 FL LAB HEMETOLOGY METHOD 07/19/2024 5:21 PM [facility] MCH 29.1 27.0 - 32.0 pcg LAB HEMETOLOGY METHOD 07/19/2024 5:21 PM [facility] MCHC 32.7 32.0 - 37.0 g/dL LAB HEMETOLOGY METHOD 07/19/2024 5:21 PM [facility] RDW 13.3 11.0 - 15.0 % LAB HEMETOLOGY METHOD 07/19/2024 5:21 PM [facility] Platelets 321 130 - 400 K/mcL LAB HEMETOLOGY METHOD 07/19/2024 5:21 PM [facility] MPV 10.4 7.0 - 11.0 FL LAB HEMETOLOGY METHOD 07/19/2024 5:21 PM [facility] NRBC 0.0 <1.0 % LAB HEMETOLOGY METHOD 07/19/2024 5:21 PM [facility] NRBC Absolute 0.00 <0.10 K/mcL LAB HEMETOLOGY METHOD 07/19/2024 5:21 PM [facility] Neutrophils Relative 77.9 % LAB HEMETOLOGY METHOD 07/19/2024 5:21 PM [facility] Lymphocytes Relative 13.1 % LAB HEMETOLOGY METHOD 07/19/2024 5:21 PM [facility] Monocytes Relative 3.7 % LAB HEMETOLOGY METHOD 07/19/2024 5:21 PM [facility] Eosinophils Relative 0.2 % LAB HEMETOLOGY METHOD 07/19/2024 5:21 PM [facility] Basophils Relative 0.7 % LAB HEMETOLOGY METHOD 07/19/2024 5:21 PM [facility] Immature Granulocytes Relative 4.4 % LAB HEMETOLOGY METHOD 07/19/2024 5:21 PM [facility] Neutrophils Absolute 12.14(H) 1.50 - 7.00 K/mcL LAB HEMETOLOGY METHOD 07/19/2024 5:21 PM [facility] Lymphocytes Absolute 2.05 1.00 - 5.00 K/mcL LAB HEMETOLOGY METHOD 07/19/2024 5:21 PM EST [facility] Monocytes Absolute 0.58 0.20 - 1.00 K/mcL LAB HEMETOLOGY METHOD 07/19/2024 5:21 PM EST [facility] Eosinophils Absolute 0.03 0.00 - 0.50 K/mcL LAB HEMETOLOGY METHOD 07/19/2024 5:21 PM EST [facility] Basophils Absolute 0.11 0.00 - 0.20 K/mcL LAB HEMETOLOGY METHOD 07/19/2024 5:21 PM EST [facility] Immature Granulocytes Absolute 0.68(H) 0.00 - 0.03 K/[facility] LAB HEMETOLOGY METHOD 07/19/2024 5:21 PM [facility] Blood Venous blood specimen / Unknown Venipuncture / Unknown 07/19/2024 4:56 PM EST 07/19/2024 5:12 PM EST us Jemal B Doug JORDAN LAB BLOOD ORDERABLES Final Resu lt [facility] [address] [place] [address], * (ABNORMAL) Basic metabolic panel (07/19/2024 4:56 PM EST) Sodium 134 133 - 145 mmol/L LAB CHEMISTRY METHOD 07/19/2024 5:43 PM [facility] Potassium 3.7 3.5 - 5.5 mmol/L LAB CHEMISTRY METHOD 07/19/2024 5:43 PM [facility] Chloride 100 96 - 110 mmol/L LAB CHEMISTRY METHOD 07/19/2024 5:43 PM [facility] CO2 26 21 - 32 mmol/L LAB CHEMISTRY METHOD 07/19/2024 5:43 PM [facility] Anion Gap 8 3 - 11 LAB CHEMISTRY METHOD 07/19/2024 5:43 PM EST [facility] Glucose 178(H) 70 - 100 mg/dL LAB CHEMISTRY METHOD 07/19/2024 5:43 PM [facility] BUN 18 5 - 25 mg/dL LAB CHEMISTRY METHOD 07/19/2024 5:43 PM [facility] Creatinine 0.76 0.50 - 1.10 mg/dL LAB CHEMISTRY METHOD 07/19/2024 5:43 PM EST [facility] eGFR 96 >=60 mL/min/1. 73m2 LAB CHEMISTRY METHOD 07/19/2024 5:43 PM [facility] Comment:Calculation based on the??Chronic Kidney Disease Epidemiology Collaboration (CKD-EPI) equation refit??without adjustment for race. BUN/Creatinine Ratio 23.7 LAB CHEMISTRY METHOD 07/19/2024 5:43 PM [facility] Calcium 8.9 8.5 - 10.5 mg/dL LAB CHEMISTRY METHOD 07/19/2024 5:43 PM EST [facility] Blood Venous blood specimen / Unknown Venipuncture / Unknown 07/19/2024 4:56 PM EST 07/19/2024 5:12 PM EST Jemal Camacho MD LAB BLOOD ORDERABLES Final Resu lt [facility] [address] [place] [address], * ECG 12 lead (07/19/2024 4:51 PM EST) Ventricular Rate ECG 74 BPM GEMUSE Atrial Rate 74 BPM GEMUSE P-R Interval 176 ms GEMUSE QRS Duration 94 ms GEMUSE Q-T Interval 416 ms GEMUSE QTc 461 ms GEMUSE P Wave Buhl 16 degrees GEMUSE R Buhl 18 degrees GEMUSE T Buhl 76 degrees GEMUSE ECG Interpretation Normal sinus rhythm Possible Inferior infarct (cited on or before 04-OCT-2022) Abnormal ECG When compared with ECG of 04-OCT-2022 10:27, ME interval has decreased Confirmed by ASIA CAIN ([id number]) on 07/21/2024 11:05:08 AM GEMUSE 07/19/2024 4:51 PM EST 07/21/2024 11:05 AM EST Jemal Bob Camacho MD ECG ORDERABLES Final Result GEMUSE * ECG-Annotated (07/19/2024) Provider Onbase ECG ORDERABLES Final Result from Last 3 Months Insurance [facility] Care Teams English Professor Relationship Specialty Start Date End Date Shannan Mcnulty MD [address] [place] [phone] PCP - General Internal Medicine 06/16/24
--- OUTSIDE RECORDS SUMMARY | 2024-10-05 13:50 | XMS_ITS | Encounter Summary ---
Author Organization [facility] [place], Address [address] [address] Phone Care Team Providers Care Digital Account Coordinator Name Role Phone Shannan Mcnulty MD Primary Care Provider Reason for Visit * Reason Comments Med Refill Encounter Details Date Type Department Care Team (Late st Contact Info) Description 04/15/2020 [facility]ill [facility] [address] [place] [address] Evens Koch MD [address] [place] [address] [place] [address] Social History Tobacco Use Types Packs/Day Years [...] on filedocumented in this encounter Care Teams Digital Account Coordinator Relationship Specialty Start Date End Date Shannan Mcnulty MD [facility] [place] [address] PCP - General Internal Medicine 01/05/24 documented as of this encounter
--- OUTSIDE RECORDS SUMMARY | 2024-10-05 13:50 | XMS_ITS | Encounter Summary ---
Author Organization [facility] Address [address] [place] [address] Phone Care Team Providers Care Wet Char Conveyor Tender Name Role Phone Shannan Mcnulty MD Primary Care Provider [phone] Encounter Details Date Type Department Care Team (Late st Contact Info) Description 04/05/2024 Documentation Only [facility] [place], [address] [place] [address] Lucille Conrad [address] [place] [phone] Social History Tobacco Use Types Packs/Day Years [...] on filedocumented in this encounter Care Teams Wet Char Conveyor Tender Relationship Specialty Start Date End Date Shannan Mcnulty MD [address] [place] [id number] PCP - General Internal Medicine 01/05/24 documented as of this encounter
--- OUTSIDE RECORDS SUMMARY | 2024-10-05 13:50 | XMS_ITS | Encounter Summary ---
Author Organization [facility] [place], Address [address] [place] [address] Phone Care Team Providers Care Cultured Marble Products Maker Name Role Phone Shannan Mcnulty MD Primary Care Provider [phone] Reason for Visit * Reason Comments Med Refill Encounter Details Date Type Department Care Team (Late st Contact Info) Description 09/21/2020 Refill [facility] [address] [place] [address] Niels Nagy MD [address] [place] [address] [place] [address] Social History Tobacco Use Types Packs/Day Years [...] on filedocumented in this encounter Care Teams Cultured Marble Products Maker Relationship Specialty Start Date End Date Shannan Mcnulty MD [facility] [place] [address] PCP - General Internal Medicine 01/05/24 documented as of this encounter
--- OUTSIDE RECORDS SUMMARY | 2024-10-05 13:50 | XMS_ITS | Encounter Summary ---
Author Organization [facility] Address [address] [place] [address] Phone Care Team Providers Care Fabric Worker Fitter Name Role Phone Shannan Mcnulty MD Primary Care Provider [phone] Encounter Details Date Type Department Care Team (Late st Contact Info) Description 01/05/2024 Documentation Only [facility] [place], [address] [place] [address] Lucille Conrad [address] [place] [phone] Social History Tobacco Use Types Packs/Day Years [...] on filedocumented in this encounter Care Teams Fabric Worker Fitter Relationship Specialty Start Date End Date Shannan Mcnulty MD [address] [place] [address] PCP - General Internal Medicine 01/05/24 documented as of this encounter
--- OUTSIDE RECORDS SUMMARY | 2024-10-05 13:50 | XMS_ITS | Encounter Summary ---
Author Organization [facility] [place], Address [address] [address] Phone Care Team Providers Care Cdl A Driver Name Role Phone Shannan Mcnulty MD Primary Care Provider [phone] Reason for Visit * Reason Comments Med Refill Encounter Details Date Type Department Care Team (Late st Contact Info) Description 05/18/2020 Refill [facility] [address] [place] [address] Evens Koch MD [address] [place] [address] [place] [address] Social History Tobacco Use Types Packs/Day Years [...] on filedocumented in this encounter Care Teams Cdl A Driver Relationship Specialty Start Date End Date Shannan Mcnulty MD [facility] [place] [address] PCP - General Internal Medicine 01/05/24 documented as of this encounter
--- OUTSIDE RECORDS SUMMARY | 2024-10-05 13:50 | XMS_ITS | Encounter Summary ---
Author Organization [facility] [place], Address [address] [place] [address] Phone Care Team Providers Care Varnisher Plasticoater Name Role Phone Shannan Mcnulty MD Primary Care Provider [phone] Reason for Visit * Reason Comments Med Refill Encounter Details Date Type Department Care Team (Late st Contact Info) Description 09/15/2023 Refill [facility] [place] [facility] [address] [place] [phone] Niels Nagy MD [address] [place] [phone] Social History Tobacco Use Types Packs/Day Years [...] on filedocumented in this encounter Care Teams Varnisher Plasticoater Relationship Specialty Start Date End Date Shannan Mcnulty MD [facility] [place] [address] PCP - General Internal Medicine 01/05/24 documented as of this encounter
--- OUTSIDE RECORDS SUMMARY | 2024-10-05 13:50 | XMS_ITS | Encounter Summary ---
Author Organization [facility] [place], Address [address] [address] Phone Care Team Providers Care Tree Loader Meat Name Role Phone Shannan Mcnulty MD Primary Care Provider Reason for Visit * Reason Comments Med Refill Encounter Details Date Type Department Care Team (Late st Contact Info) Description 07/02/2019 Refill [facility] [address] [place] [address] Evens Koch MD [address] [place] [address] [place] [address] Social History Tobacco Use Types Packs/Day Years [...] on filedocumented in this encounter Care Teams Tree Loader Meat Relationship Specialty Start Date End Date Shannan Mcnulty MD [facility] [place] [address] PCP - General Internal Medicine 01/05/24 documented as of this encounter
--- OUTSIDE RECORDS SUMMARY | 2024-10-05 13:50 | XMS_ITS | Encounter Summary ---
Author Organization [facility] [place], Address [address] [address] Phone Care Team Providers Care Button Clamper Name Role Phone Shannan Mcnulty MD Primary Care Provider Reason for Visit * Reason Comments Med Refill Encounter Details Date Type Department Care Team (Late st Contact Info) Description 07/15/2020 Refill [facility] [address] [place] [address] Evens Koch MD [address] [place] [address] [place] [phone] Social History Tobacco Use Types Packs/Day Years [...] on filedocumented in this encounter Care Teams Button Clamper Relationship Specialty Start Date End Date Shannan Mcnulty MD [facility] [place] [address] PCP - General Internal Medicine 01/05/24 documented as of this encounter
--- OUTSIDE RECORDS SUMMARY | 2024-10-05 13:50 | XMS_ITS | Encounter Summary ---
Author Organization [facility] [place], Address [address] [place] [address] Phone Care Team Providers Care Music Education Adjunct Professor Name Role Phone Shannan Mcnulty MD Primary Care Provider [phone] Reason for Visit * Reason Comments Med Refill Encounter Details Date Type Department Care Team (Late st Contact Info) Description 06/14/2024 Refill [facility] [place] [facility] [address] [place] [phone] Niels Nagy MD [address] [place] [phone] Social History Tobacco Use Types Packs/Day Years [...] on filedocumented in this encounter Care Teams Music Education Adjunct Professor Relationship Specialty Start Date End Date Shannan Mcnulty MD [facility] [place] [address] PCP - General Internal Medicine 01/05/24 documented as of this encounter
--- OUTSIDE RECORDS SUMMARY | 2024-10-05 13:50 | XMS_ITS | Encounter Summary ---
Author Organization [facility] [place], Address [address] [address] Phone Care Team Providers Care Quality Review Trainer Name Role Phone Shannan Mcnulty MD Primary Care Provider [phone] Reason for Visit * Reason Comments Med Refill Encounter Details Date Type Department Care Team (Late st Contact Info) Description 04/07/2020 Refill [facility] [address] [place] [address] Evens Koch MD [address] [place] [address] [place] [address] Social History Tobacco Use Types Packs/Day Years [...] filedocumented in this encounter Care Teams Quality Review Trainer Relationship Specialty Start Date End Date Shannan Mcnulty MD [facility] [place] [address] PCP - General Internal Medicine 01/05/24 documented as of this encounter
== END 2024-10-05 14:05 | disposition home or self-care (01) ==
LOC: HO.HMCC 13:29
PROVIDERS: PCP Internal Medicine; Visit Provider Internal Medicine
DX: Z00.01 Encounter for general adult medical examination with abnormal findings (principal); J45.40 Moderate persistent asthma, uncomplicated; E66.01 Morbid (severe) obesity due to excess calories; Z68.41 Body mass index [BMI] 40.0-44.9, adult; R73.03 Prediabetes; I10 Essential (primary) hypertension; K21.9 Gastro-esophageal reflux disease without esophagitis; B00.1 Herpesviral vesicular dermatitis; Z12.11 Encounter for screening for malignant neoplasm of colon

== ENCOUNTER → 2024-10-05 13:29 | Outpatient (BNVA) | payer OTHER, SELFPAY | PROVIDERS: PCP Internal Medicine; Visit Provider Internal Medicine | DX: Z00.01 Encounter for general adult medical examination with abnormal findings (principal); J45.40 Moderate persistent asthma, uncomplicated; R73.03 Prediabetes; I10 Essential (primary) hypertension; E66.01 Morbid (severe) obesity due to excess calories; Z68.41 Body mass index [BMI] 40.0-44.9, adult; K21.9 Gastro-esophageal reflux disease without esophagitis; B00.1 Herpesviral vesicular dermatitis; Z71.3 Dietary counseling and surveillance | CPT/HCPCS: 96127; 99212; 99396 ==

== ENCOUNTER 2024-11-08 13:09 | Outpatient (AMB) | payer OTHER, SELFPAY ==
--- NOTE | 2024-11-08 13:12 | AM.OFFWIN_ITS ---
Intake Vital Signs 11/08/24 13:13 Weight 264 lb BP 130/80 Blood Pressure Location Rt brachial Position Sitting Pulse 98 Pulse Source Pulse Oximeter Temp 98.7 F Temp Source Oral Pulse Oximetry (%) 98 Oxygen Delivery Method Room Air Intake Visit Reasons: EP congestion, chest cough, mucus, asthma Intake Note: Patient here for congestion, chest congestion, cough, yellow mucus, head pressure that started tuesday and worsening. Patient Tobacco Use Status: Never used Tobacco Allergies amoxicillin Allergy (Unknown, Verified 11/08/24 13:14) hives hydromorphone [Dilaudid] Adverse Reaction (Unknown, Verified 11/08/24 13:14) makes her sick Environmental Allergy (Unknown, Uncoded 11/08/24 13:14) Unknown Do you need a note to return to daycare/school/sports/work: No HPI HPI Comments History of Present Illness Details 49 y/o Female patient who presents to [facility] walk in clinic with c/o congestion, chest congestion, cough, yellow mucus, head pressure that started Tuesday and worsening now. [facility] Medical History (Updated 11/08/24 @ 14:07 by Teena Kenney NP) Cough Influenza A Surgical History History of surgery History of bone marrow donation History of myomectomy History of section Family History Father Neuropathy Diabetes mellitus Mother Afib CVD (cardiovascular disease) Myocardial infarction Brother Leukemia Brother No problems noted. Maternal Grandfather History of heart attack Maternal Grandmother Cancer Alzheimer's disease History of mastectomy Paternal Grandmother History of CVA (cerebrovascular accident) Paternal Grandfather Leukemia Maternal Aunt Ovarian cancer Brother No problems noted. Brother No problems noted. Son No problems noted. Social History Housing: House Alcohol intake: never Patient Tobacco Use Status: Never used Tobacco e-Cigarette/Vaping Use: Never Used service: No Current occupational status: employed Cognitive needs: No Hearing needs: No Vision needs: No Review of Systems Const All systems reviewed & are unremarkable except as noted in HPI and below Physical Exam Vital Signs: Last Vital Signs Temp 98.7 F 11/08/24 13:13 Pulse 98 11/08/24 13:13 BP 130/80 11/08/24 13:13 Pulse Ox 98 11/08/24 13:13 Oxygen Delivery Method Room Air 11/08/24 13:13 Const General: no acute distress Nutritional Appearance: obese Orientation/consciousness: patient oriented x3 HEENT Head: Yes normocephalic Ears: external ears normal and TM abnormal with fluid behind the TM bilateral Mouth: moist mucous membranes Resp Effort & Inspection: normal respiratory effort, able to speak in complete sentences and Actively coughing Auscultation: no crackles, no rales, rhonchi and wheezes Cardio Heart sounds: S1 normal heart sound present and S2 normal heart sound present Neuro General: patient oriented x3, gait normal and moves all extremities Psych Speech and movement: Normal speech and movement present Assessment & Plan Assessment & Plan (1) Cough: Code(s): R05.9 - Cough, unspecified Qualifiers: Cough type: subacute Qualified Code(s): R05.2 - Subacute cough Plan: Ordered Z-pack and Doxy. Ordered Prednisone Rest and hydrate well with warm fluids. Medications: New doxycycline hyclate 100 mg PO BID 20 caps 0RF 10 days R05.2 - Subacute cough prednisone 50 mg PO DAILY 5 tabs 0RF 5 days R05.2 - Subacute cough azithromycin 500 mg PO DAILY 3 tabs 0RF 3 days R05.2 - Subacute cough Discontinued valacyclovir Discontinued Reason: Patient Completed Course 1,000 mg PO BID 2 days 4 tabs 1RF Coding Level of Care Code Est Pt Level 4 (11872) Diagnoses Subacute cough R05.2 Cough type: subacute Time Spent (min) 20
[2024-11-08 13:13] VITALS: BP 130/80; PULSE 98; TEMP 37.1; O2SAT 98
--- OUTSIDE RECORDS SUMMARY | 2024-11-08 13:42 | XMS_ITS | Encounter Summary ---
Author Organization [facility] [place], Address [address] [place] [address] Phone Care Team Providers Care Professional Nurse Name Role Phone Shannan Mcnulty MD Primary Care Provider [phone] Reason for Visit * Reason Comments Med Refill Encounter Details Date Type Department Care Team (Late st Contact Info) Description 06/14/2024 Refill [facility] [place] [facility] [address] [place] [phone] Niels Nagy MD [address] [place] [phone] Social History Tobacco Use Types Packs/Day Years [...] on filedocumented in this encounter Care Teams Professional Nurse Relationship Specialty Start Date End Date Shannan Mcnulty MD [facility] [place] [address] PCP - General Internal Medicine 01/05/24 documented as of this encounter
--- OUTSIDE RECORDS SUMMARY | 2024-11-08 13:42 | XMS_ITS | Encounter Summary ---
Author Organization [facility] [place], Address [address] [place] [address] Phone Care Team Providers Care Army Ranger Name Role Phone Shannan Mcnulty MD Primary Care Provider [phone] Reason for Visit * Reason Comments Med Refill Encounter Details Date Type Department Care Team (Late st Contact Info) Description 09/15/2023 Refill [facility] [place] [facility] [address] [place] [phone] Niels Nagy MD [address] [place] [phone] Social History Tobacco Use Types Packs/Day Years [...] on filedocumented in this encounter Care Teams Army Ranger Relationship Specialty Start Date End Date Shannan Mcnulty MD [facility] [place] [address] PCP - General Internal Medicine 01/05/24 documented as of this encounter
--- OUTSIDE RECORDS SUMMARY | 2024-11-08 13:42 | XMS_ITS | Encounter Summary ---
Author Organization [facility] Address [address] [place] [address] Phone Care Team Providers Care Senior Clerk Name Role Phone Shannan Mcnulty MD Primary Care Provider [phone] Encounter Details Date Type Department Care Team (Late st Contact Info) Description 07/24/2024 Documentation Only [facility] [place], [address] [place] [address] Lucille Conrad [address] [place] [phone] Social History Tobacco Use Types Packs/Day Years [...] on filedocumented in this encounter Care Teams Senior Clerk Relationship Specialty Start Date End Date Shannan Mcnulty MD [address] [place] [id number] PCP - General Internal Medicine 01/05/24 documented as of this encounter
--- OUTSIDE RECORDS SUMMARY | 2024-11-08 13:42 | XMS_ITS | Encounter Summary ---
Author Organization [facility] [place], Address [address] [place] [address] Phone Care Team Providers Care Hospital Superintendent Name Role Phone Shannan Mcnulty MD Primary Care Provider [phone] Reason for Visit * Reason Comments Med Refill Encounter Details Date Type Department Care Team (Late st Contact Info) Description 09/21/2020 [facility]ill [facility] [address] [place] [address] Niels Nagy MD [address] [place] [address] [place] [address] Social History Tobacco Use Types Packs/Day Years [...] on filedocumented in this encounter Care Teams Hospital Superintendent Relationship Specialty Start Date End Date Shannan Mcnulty MD [facility] [place] [address] PCP - General Internal Medicine 01/05/24 documented as of this encounter
--- OUTSIDE RECORDS SUMMARY | 2024-11-08 13:42 | XMS_ITS | Encounter Summary ---
Author Organization [facility] [place], Address [address] [place] [address] Phone Care Team Providers Care Liquor Clerk Name Role Phone Shannan Mcnulty MD Primary Care Provider [phone] Reason for Visit * Reason Comments Med Refill Encounter Details Date Type Department Care Team (Late st Contact Info) Description 10/01/2020 Refill [facility] [address] [place] [address] Niels Nagy MD [address] [place] [address] [place] [address] Social History Tobacco Use Types Packs/Day Years [...] on filedocumented in this encounter Care Teams Liquor Clerk Relationship Specialty Start Date End Date Shannan Mcnulty MD [facility] [place] [address] PCP - General Internal Medicine 01/05/24 documented as of this encounter
--- OUTSIDE RECORDS SUMMARY | 2024-11-08 13:42 | XMS_ITS | Encounter Summary ---
Author Organization [facility] Address [address] [place] [address] Phone Care Team Providers Care Bookkeeping Machine Mechanic Name Role Phone Shannan Mcnulty MD Primary Care Provider [phone] Encounter Details Date Type Department Care Team (Late st Contact Info) Description 04/05/2024 Documentation Only [facility] [place], [address] [place] [address] Lucille Conrad [address] [place] [phone] Social History Tobacco Use Types Packs/Day Years [...] on filedocumented in this encounter Care Teams Bookkeeping Machine Mechanic Relationship Specialty Start Date End Date Shannan Mcnulty MD [address] [place] [address] PCP - General Internal Medicine 01/05/24 documented as of this encounter
--- OUTSIDE RECORDS SUMMARY | 2024-11-08 13:42 | XMS_ITS | Encounter Summary ---
Author Organization [facility] [place], Address [address] [address] Phone Care Team Providers Care Attending Anesthesiologist Name Role Phone Shannan Mcnulty MD Primary Care Provider [phone] Reason for Visit * Reason Comments Med Refill Encounter Details Date Type Department Care Team (Late st Contact Info) Description 05/18/2020 Refill [facility] [address] [place] [address] Evens Koch MD [address] [place] [address] [place] [address] Social History Tobacco Use Types Packs/Day Years [...] on filedocumented in this encounter Care Teams Attending Anesthesiologist Relationship Specialty Start Date End Date Shannan Mcnulty MD [facility] [place] [address] PCP - General Internal Medicine 01/05/24 documented as of this encounter
--- OUTSIDE RECORDS SUMMARY | 2024-11-08 13:42 | XMS_ITS | Encounter Summary ---
Author Organization [facility] Address [address] [place] [address] Phone Care Team Providers Care Clinical Application Manager Name Role Phone Shannan Mcnulty MD Primary Care Provider [phone] Encounter Details Date Type Department Care Team (Late st Contact Info) Description 01/05/2024 Documentation Only [facility] [place], [address] [place] [address] Lucille Conrad [address] [place] [phone] Social History Tobacco Use Types Packs/Day Years [...] on filedocumented in this encounter Care Teams Clinical Application Manager Relationship Specialty Start Date End Date Shannan Mcnulty MD [address] [place] [address] PCP - General Internal Medicine 01/05/24 documented as of this encounter
--- OUTSIDE RECORDS SUMMARY | 2024-11-08 13:42 | XMS_ITS | Clinical Summary ---
Author Organization [facility] [place], Address [address] [place] [address] [place] [address] Phone Care Team Providers Care Bistro Attendant Name Role Phone Shannan Mcnulty MD Primary Care Provider [phone] Allergies Active Allergy Reactions Criticality Noted Date [...] cyst Overview (01/03/2024): of the right kidney Immunizations Immunization Administration Dates Next Due DT [...] Last Done Comments Breast Cancer Screening 1974 Hepatitis B Vaccine (1 of 3 - 19+ 3-dose series) 1993 01/10/2009 Pneumococcal Vaccine: 50+ Ye ars (1 of 2 - PCV) 1993 Colorectal Cancer Screening: Annual FOBT 2023 Colorectal Cancer Screening: Colonoscopy 2023 Colorectal Cancer Screening: Sigmoidoscopy 2023 Influenza Vaccine (Season Ended) 2025 05/31/2019, 05/21/2015, 04/12/2008 Insurance [facility] Healthnet Care Teams Bistro Attendant Relationship Specialty Start Date End Date Shannan Mcnulty MD [facility] [place] [address] PCP - General Internal Medicine 01/05/24
--- OUTSIDE RECORDS SUMMARY | 2024-11-08 13:42 | XMS_ITS | Encounter Summary ---
Author Organization [facility] [place], Address [address] [address] Phone Care Team Providers Care Hand Funnel Coater Name Role Phone Shannan Mcnulty MD Primary Care Provider [phone] Reason for Visit * Reason Comments Med Refill Encounter Details Date Type Department Care Team (Late st Contact Info) Description 04/15/2020 Refill [facility] [address] [place] [address] Evens Koch MD [address] [place] [address] [place] [address] Social History Tobacco Use Types Packs/Day Years [...] on filedocumented in this encounter Care Teams Hand Funnel Coater Relationship Specialty Start Date End Date Shannan Mcnulty MD [facility] [place] [address] PCP - General Internal Medicine 01/05/24 documented as of this encounter
--- OUTSIDE RECORDS SUMMARY | 2024-11-08 13:42 | XMS_ITS | Encounter Summary ---
Author Organization [facility] [place], Address [address] [address] Phone Care Team Providers Care Saddle Tree Stitcher Name Role Phone Shannan Mcnulty MD Primary Care Provider [phone] Reason for Visit * Reason Comments Med Refill Encounter Details Date Type Department Care Team (Late st Contact Info) Description 04/07/2020 Refill [facility] [address] [place] [address] Evens Koch MD [address] [place] [address] [place] [address] Social History Tobacco Use Types Packs/Day Years [...] on filedocumented in this encounter Care Teams Saddle Tree Stitcher Relationship Specialty Start Date End Date Shannan Mcnulty [place] [address] PCP - General Internal Medicine 01/05/24 documented as of this encounter
--- OUTSIDE RECORDS SUMMARY | 2024-11-08 13:42 | XMS_ITS | Encounter Summary ---
Author Organization [facility] [place], Address [address] [address] Phone Care Team Providers Care Pipe Setter Name Role Phone Shannan Mcnulty MD Primary Care Provider [phone] Reason for Visit * Reason Comments Med Refill Encounter Details Date Type Department Care Team (Late st Contact Info) Description 07/15/2020 Refill [facility] [address] [place] [address] Evens Koch MD [address] [place] [address] [place] [phone] Social History Tobacco Use Types Packs/Day Years [...] on filedocumented in this encounter Care Teams Pipe Setter Relationship Specialty Start Date End Date Shannan Mcnulty MD [facility] [place] [address] PCP - General Internal Medicine 01/05/24 documented as of this encounter
--- OUTSIDE RECORDS SUMMARY | 2024-11-08 13:42 | XMS_ITS | Encounter Summary ---
Author Organization [facility] [place], Address [address] [address] Phone Care Team Providers Care Deputy County Counsel Name Role Phone Shannan Mcnulty MD Primary Care Provider [phone] Reason for Visit * Reason Comments Med Refill Encounter Details Date Type Department Care Team (Late st Contact Info) Description 07/02/2019 Refill [facility] [address] [place] [address] Evens Koch MD [address] [place] [address] [place] [address] Social History Tobacco Use Types Packs/Day Years [...] filedocumented in this encounter Care Teams Deputy County Counsel Relationship Specialty Start Date End Date Shannan Mcnulty MD [facility] [place] [address] PCP - General Internal Medicine 01/05/24 documented as of this encounter
--- OUTSIDE RECORDS SUMMARY | 2024-11-08 13:42 | XMS_ITS | Clinical Summary ---
Author Organization [facility] Address [address] [place] [address] Phone Care Team Providers Care Cisco Certified Network Associate Name Role Phone Shannan Mcnulty MD Primary Care Provider [phone] Allergies Active Allergy Reactions Criticality Noted Date [...] Date Pain of left lower extremity 06/16/2024 Family History Medical History Relation Name Comments [...] Procedure Name Priority Date/Time Associated Diagnosis Comments BASIC METABOLIC PANEL STAT 07/19/2024 4:56 PM EST from Last 3 Months or Most Recently Relevant to Health Maintenance Results * (ABNORMAL) Basic metabolic panel (07/19/2024 4:56 PM EST) Sodium 134 133 - 145 mmol/L LAB CHEMISTRY METHOD 07/19/2024 5:43 PM EST [facility] Potassium 3.7 3.5 - 5.5 mmol/L LAB CHEMISTRY METHOD 07/19/2024 5:43 PM EST [facility] Chloride 100 96 - 110 mmol/L LAB CHEMISTRY METHOD 07/19/2024 5:43 PM EST [facility] CO2 26 21 - 32 mmol/L LAB CHEMISTRY METHOD 07/19/2024 5:43 PM [facility] Anion Gap 8 3 - 11 LAB CHEMISTRY METHOD 07/19/2024 5:43 PM [facility] Glucose 178(H) 70 - 100 mg/dL LAB CHEMISTRY METHOD 07/19/2024 5:43 PM [facility] BUN 18 5 - 25 mg/dL LAB CHEMISTRY METHOD 07/19/2024 5:43 PM [facility] Creatinine 0.76 0.50 - 1.10 mg/dL LAB CHEMISTRY METHOD 07/19/2024 5:43 PM [facility] eGFR 96 >=60 mL/min/1. 73m2 LAB CHEMISTRY METHOD 07/19/2024 5:43 PM [facility] Comment:Calculation based on the??Chronic Kidney Disease Epidemiology Collaboration (CKD-EPI) equation refit??without adjustment for race. BUN/Creatinine Ratio 23.7 LAB CHEMISTRY METHOD 07/19/2024 5:43 PM [facility] Calcium 8.9 8.5 - 10.5 mg/dL LAB CHEMISTRY METHOD 07/19/2024 5:43 PM [facility] Blood Venous blood specimen / Unknown Venipuncture / Unknown 07/19/2024 4:56 PM EST 07/19/2024 5:12 PM EST Jemal Camacho MD LAB BLOOD ORDERABLES Final Resu lt [facility] [address] [place] [address], from Last 3 Months or Most Recently Relevant to Health Maintenance Insurance [facility] [employer] Care Teams Cisco Certified Network Associate Relationship Specialty Start Date End Date Shannan Mcnulty MD [address] [place] [address] PCP - General Internal Medicine 06/16/24
--- OUTSIDE RECORDS SUMMARY | 2024-11-08 13:42 | XMS_ITS | Encounter Summary ---
Author Organization [facility] [place], Address [address] [place] [address] Phone Care Team Providers Care Dental Cream Maker Name Role Phone Shannan Mcnulty MD Primary Care Provider [phone] Reason for Visit * Reason Comments Med Refill Encounter Details Date Type Department Care Team (Late st Contact Info) Description 12/24/2020 Refill [facility] [address] [place] [address] Niels Nagy MD [address] [place] [address] [place] [address] Social History Tobacco Use Types Packs/Day Years [...] filedocumented in this encounter Care Teams Dental Cream Maker Relationship Specialty Start Date End Date Shannan Mcnulty MD [facility] [place] [address] PCP - General Internal Medicine 01/05/24 documented as of this encounter
== END 2024-11-08 14:11 | disposition home or self-care (01) ==
PROVIDERS: PCP Internal Medicine; Visit Provider Nurse Practitioner Family
DX: R05.2 Subacute cough (principal)

== ENCOUNTER → 2024-11-08 13:09 | Outpatient (BNVA) | payer OTHER, SELFPAY | PROVIDERS: PCP Internal Medicine; Visit Provider Nurse Practitioner Family | DX: R05.2 Subacute cough (principal) | CPT/HCPCS: 99212 ==

== ENCOUNTER 2024-11-12 12:24 | Outpatient (AMB) | payer OTHER, SELFPAY ==
--- OUTSIDE RECORDS SUMMARY | 2024-11-12 12:47 | XMS_ITS | Encounter Summary ---
Author Organization [facility] [place], Address [address] [place] [address] Phone Care Team Providers Care Assistant Professor Of Mathematics Name Role Phone Shannan Mcnulty MD Primary Care Provider [phone] Reason for Visit * Reason Comments Med Refill Encounter Details Date Type Department Care Team (Late st Contact Info) Description 09/15/2023 Refill [facility] [place] [facility] [address] [place] [phone] Niels Nagy MD [address] [place] [phone] Social History Tobacco Use Types Packs/Day Years [...] on filedocumented in this encounter Care Teams Assistant Professor Of Mathematics Relationship Specialty Start Date End Date Shannan Mcnulty MD [facility] [place] [address] PCP - General Internal Medicine 01/05/24 documented as of this encounter
--- OUTSIDE RECORDS SUMMARY | 2024-11-12 12:47 | XMS_ITS | Encounter Summary ---
Author Organization [facility] [place], Address [address] [address] Phone Care Team Providers Care Exceptional Needs Teacher Name Role Phone Shannan Mcnulty MD Primary Care Provider [phone] Reason for Visit * Reason Comments Med Refill Encounter Details Date Type Department Care Team (Late st Contact Info) Description 07/02/2019 Refill [facility] [address] [place] [address] Evens Koch MD [address] [place] [address] [place] [address] Social History Tobacco Use Types Packs/Day Years [...] on filedocumented in this encounter Care Teams Exceptional Needs Teacher Relationship Specialty Start Date End Date Shannan Mcnulty MD [facility] [place] [address] PCP - General Internal Medicine 01/05/24 documented as of this encounter
--- OUTSIDE RECORDS SUMMARY | 2024-11-12 12:48 | XMS_ITS | Encounter Summary ---
Author Organization [facility] [place], Address [address] [address] Phone Care Team Providers Care Vp Cardiovascular Name Role Phone Shannan Mcnulty MD Primary Care Provider [phone] Reason for Visit * Reason Comments Med Refill Encounter Details Date Type Department Care Team (Late st Contact Info) Description 07/15/2020 Refill [facility] [address] [place] [address] Evens Koch MD [address] [place] [address] [place] [phone] Social History Tobacco Use Types Packs/Day Years [...] on filedocumented in this encounter Care Teams Vp Cardiovascular Relationship Specialty Start Date End Date Shannan Mcnulty MD [employer] [place] [address] PCP - General Internal Medicine 01/05/24 documented as of this encounter
--- OUTSIDE RECORDS SUMMARY | 2024-11-12 12:48 | XMS_ITS | Clinical Summary ---
Author Organization [facility] Address [address] [place] [address] Phone Care Team Providers Care Motel Maid Name Role Phone Shannan Mcnulty MD Primary Care Provider [phone] Allergies Active Allergy Reactions Criticality Noted Date [...] LAB CHEMISTRY METHOD 07/19/2024 5:43 PM EST [facility] Potassium 3.7 3.5 - 5.5 mmol/L LAB CHEMISTRY METHOD 07/19/2024 5:43 PM EST [facility] Chloride 100 96 - 110 mmol/L LAB CHEMISTRY METHOD 07/19/2024 5:43 PM EST [facility] CO2 26 21 - 32 mmol/L LAB CHEMISTRY METHOD 07/19/2024 5:43 PM [facility] Anion Gap 8 3 - 11 LAB CHEMISTRY METHOD 07/19/2024 5:43 PM [facility] Glucose 178(H) 70 - 100 mg/dL LAB CHEMISTRY METHOD 07/19/2024 5:43 PM [facility] BUN 18 5 - 25 mg/dL LAB CHEMISTRY METHOD 07/19/2024 5:43 PM [facility] Creatinine 0.76 0.50 - 1.10 mg/dL LAB CHEMISTRY METHOD 07/19/2024 5:43 PM [facility] eGFR 96 >=60 mL/min/1. 73m2 LAB CHEMISTRY METHOD 07/19/2024 5:43 PM [facility] Comment:Calculation based on the??Chronic Kidney Disease Epidemiology Collaboration (CKD-EPI) equation refit??without adjustment for race. BUN/Creatinine Ratio 23.7 LAB CHEMISTRY METHOD 07/19/2024 5:43 PM [facility] Calcium 8.9 8.5 - 10.5 mg/dL LAB CHEMISTRY METHOD 07/19/2024 5:43 PM [facility] Blood Venous blood specimen / Unknown Venipuncture / Unknown 07/19/2024 4:56 PM EST 07/19/2024 5:12 PM EST Jemal Camacho MD LAB BLOOD ORDERABLES Final Resu lt [facility] [address] [place] [address], from Last 3 Months or Most Recently Relevant to Health Maintenance Insurance [facility] [employer] Care Teams Motel Maid Relationship Specialty Start Date End Date Shannan Mcnulty MD [address] [place] [address] PCP - General Internal Medicine 06/16/24
--- OUTSIDE RECORDS SUMMARY | 2024-11-12 12:48 | XMS_ITS | Encounter Summary ---
Author Organization [facility] [place], Address [address] [address] Phone Care Team Providers Care Solar Sales Associate Name Role Phone Shannan Mcnulty MD Primary Care Provider [phone] Reason for Visit * Reason Comments Med Refill Encounter Details Date Type Department Care Team (Late st Contact Info) Description 04/07/2020 Refill [facility] [address] [place] [address] Evens Koch MD [address] [place] [address] [place] [address] Social History Tobacco Use Types Packs/Day Years [...] on filedocumented in this encounter Care Teams Solar Sales Associate Relationship Specialty Start Date End Date Shannan Mcnulty MD [employer] [place] [address] PCP - General Internal Medicine 01/05/24 documented as of this encounter
--- OUTSIDE RECORDS SUMMARY | 2024-11-12 12:48 | XMS_ITS | Encounter Summary ---
Author Organization [facility] Address [address] [place] [address] Phone Care Team Providers Care Multiple Sclerosis Nurse Name Role Phone Shannan Mcnulty MD Primary Care Provider [phone] Encounter Details Date Type Department Care Team (Late st Contact Info) Description 07/24/2024 Documentation Only [facility] [place], [address] [place] [address] Lucille Conrad [address] [place] [phone] Social History Tobacco Use Types Packs/Day Years [...] on filedocumented in this encounter Care Teams Multiple Sclerosis Nurse Relationship Specialty Start Date End Date Shannan Mcnulty MD [address] [place] [address] PCP - General Internal Medicine 01/05/24 documented as of this encounter
--- OUTSIDE RECORDS SUMMARY | 2024-11-12 12:48 | XMS_ITS | Encounter Summary ---
Author Organization [facility] [place], Address [address] [place] [address] Phone Care Team Providers Care Replenishment Merchandising Associate Name Role Phone Shannan Mcnulty MD Primary Care Provider [phone] Reason for Visit * Reason Comments Med Refill Encounter Details Date Type Department Care Team (Late st Contact Info) Description 09/21/2020 Refill [facility] [address] [place] [address] Niels Nagy MD [address] [place] [address] [place] [address] Social History Tobacco Use Types Packs/Day Years [...] on filedocumented in this encounter Care Teams Replenishment Merchandising Associate Relationship Specialty Start Date End Date Shannan Mcnulty MD [place] [address] PCP - General Internal Medicine 01/05/24 documented as of this encounter
--- OUTSIDE RECORDS SUMMARY | 2024-11-12 12:48 | XMS_ITS | Encounter Summary ---
Author Organization [facility] [place], Address [address] [address] Phone Care Team Providers Care Commercial Horticulture Instructor Name Role Phone Shannan Mcnulty MD Primary Care Provider [phone] Reason for Visit * Reason Comments Med Refill Encounter Details Date Type Department Care Team (Late st Contact Info) Description 05/18/2020 Refill [facility] [address] [place] [address] Evens Koch MD [address] [place] [address] [place] [address] Social History Tobacco Use Types Packs/Day Years [...] on filedocumented in this encounter Care Teams Commercial Horticulture Instructor Relationship Specialty Start Date End Date Shannan Mcnulty MD [facility] [place] [address] PCP - General Internal Medicine 01/05/24 documented as of this encounter
--- OUTSIDE RECORDS SUMMARY | 2024-11-12 12:48 | XMS_ITS | Clinical Summary ---
Author Organization [facility] [place], Address [address] [place] [address] [place] [address] Phone Care Team Providers Care Combining Machine Operator Name Role Phone Shannan Mcnulty MD Primary Care Provider [phone] Allergies Active Allergy Reactions Criticality Noted Date [...] (Season Ended) 2025 05/31/2019, 05/21/2015, 04/12/2008 Insurance [facility] [employer] Care Teams Combining Machine Operator Relationship Specialty Start Date End Date Shannan Mcnulty MD [facility] [place] [address] PCP - General Internal Medicine 01/05/24
--- OUTSIDE RECORDS SUMMARY | 2024-11-12 12:48 | XMS_ITS | Encounter Summary ---
Author Organization [facility] Address [address] [place] [address] Phone Care Team Providers Care Blind Stitch Machine Operator Name Role Phone Shannan Mcnulty MD Primary Care Provider [phone] Encounter Details Date Type Department Care Team (Late st Contact Info) Description 01/05/2024 Documentation Only [facility] [place], [address] [place] [address] Lucille Conrad [address] [place] [phone] Social History Tobacco Use Types Packs/Day Years [...] filedocumented in this encounter Care Teams Blind Stitch Machine Operator Relationship Specialty Start Date End Date Shannan Mcnulty MD [address] [place] [address] PCP - General Internal Medicine 01/05/24 documented as of this encounter
--- OUTSIDE RECORDS SUMMARY | 2024-11-12 12:48 | XMS_ITS | Encounter Summary ---
Author Organization [facility], Address [address] [address] Phone Care Team Providers Care Switchboard Receptionist Name Role Phone Shannan Mcnulty MD Primary Care Provider [phone] Reason for Visit * Reason Comments Med Refill Encounter Details Date Type Department Care Team (Late st Contact Info) Description 04/15/2020 [facility]ill [facility] [address] [place] [address] Evens Koch MD [address] [place] [address] [place] [address] Social History Tobacco Use Types Packs/Day Years [...] on filedocumented in this encounter Care Teams Switchboard Receptionist Relationship Specialty Start Date End Date Shannan Mcnulty [place] [address] PCP - General Internal Medicine 01/05/24 documented as of this encounter
--- OUTSIDE RECORDS SUMMARY | 2024-11-12 12:48 | XMS_ITS | Encounter Summary ---
Author Organization [facility], Address [address] [place] [address] Phone Care Team Providers Care Auditor Tax Name Role Phone Shannan Mcnulty MD Primary Care Provider [phone] Reason for Visit * Reason Comments Med Refill Encounter Details Date Type Department Care Team (Late st Contact Info) Description 10/01/2020 [facility]ill [facility] [address] [place] [address] Niels Nagy MD [address] [place] [address] [place] [address] Social History Tobacco Use Types Packs/Day Years [...] on filedocumented in this encounter Care Teams Auditor Tax Relationship Specialty Start Date End Date Shannan Mcnulty MD [facility] [place] [address] PCP - General Internal Medicine 01/05/24 documented as of this encounter
--- OUTSIDE RECORDS SUMMARY | 2024-11-12 12:48 | XMS_ITS | Encounter Summary ---
Author Organization [facility] Address [address] [place] [address] Phone Care Team Providers Care Piano Mechanic Name Role Phone Shannan Mcnulty MD Primary Care Provider [phone] Encounter Details Date Type Department Care Team (Late st Contact Info) Description 04/05/2024 Documentation Only [facility], [address] [place] [address] Lucille Conrad [address] [place] [phone] Social History Tobacco Use Types Packs/Day Years [...] on filedocumented in this encounter Care Teams Piano Mechanic Relationship Specialty Start Date End Date Shannan Mcnulty MD [address] [place] [address] PCP - General Internal Medicine 01/05/24 documented as of this encounter
--- OUTSIDE RECORDS SUMMARY | 2024-11-12 12:48 | XMS_ITS | Encounter Summary ---
Author Organization [facility], Address [address] [place] [address] Phone Care Team Providers Care Paint Trimmer Pipe Bowls Name Role Phone Shannan Mcnulty MD Primary Care Provider [phone] Reason for Visit * Reason Comments Med Refill Encounter Details Date Type Department Care Team (Late st Contact Info) Description 06/14/2024 Refill [facility] [address] [place] [phone] Niels Nagy MD [address] [place] [phone] Social History Tobacco Use Types Packs/Day Years [...] on filedocumented in this encounter Care Teams Paint Trimmer Pipe Bowls Relationship Specialty Start Date End Date Shannan Mcnulty MD [facility] [place] [address] PCP - General Internal Medicine 01/05/24 documented as of this encounter
--- OUTSIDE RECORDS SUMMARY | 2024-11-12 12:48 | XMS_ITS | Encounter Summary ---
Author Organization [facility], Address [address] [place] [address] Phone Care Team Providers Care Wood Boatbuilder Name Role Phone Shannan Mcnulty MD Primary Care Provider [phone] Reason for Visit * Reason Comments Med Refill Encounter Details Date Type Department Care Team (Late st Contact Info) Description 12/24/2020 Refill [facility] [address] [place] [address] Niels Nagy MD [address] [place] [address] [place] [address] Social History Tobacco Use Types Packs/Day Years [...] filedocumented in this encounter Care Teams Wood Boatbuilder Relationship Specialty Start Date End Date Shannan Mcnulty MD [facility] [place] [address] PCP - General Internal Medicine 01/05/24 documented as of this encounter
--- NOTE | 2024-11-12 13:11 | AM.OFFWIN_ITS ---
Intake Vital Signs 11/12/24 13:30 Weight 264 lb BP 120/90 H Blood Pressure Location Rt brachial Position Sitting Pulse 85 Pulse Source Pulse Oximeter Temp 98.2 F Temp Source Oral Pulse Oximetry (%) 96 Oxygen Delivery Method Room Air Intake Visit Reasons: EP cough not better, still not feeling great Intake Note: Patient here for cough that has improved slightly but overall still not well. Patient Tobacco Use Status: Never used Tobacco Allergies amoxicillin Allergy (Unknown, Verified 11/08/24 13:14) hives hydromorphone [Dilaudid] Adverse Reaction (Unknown, Verified 11/08/24 13:14) makes her sick Environmental Allergy (Unknown, Uncoded 11/08/24 13:14) Unknown HPI HPI Comments History of Present Illness Details 49 y/o Female patient who presents to [facility] with c/o Cough and SOB that has not improved or resolved despite treatment with Abx. Pt was evaluated and treated 11/08 by me with Abx Z-pack and Doxy, plus Prednisone for 5 days. Pt asking for more Prednisone, because she is finishing her last Dose today and needs it to help with SOB and chest tightness. Pt admits to being under lots of stress, anxious with Panic Attacks. Her PCP prescribed Ativan and Hydroxyzine PRN for anxiety. Pt lost her Father last April 2024, and she has been feeling so overwhelmed with family responsibilities and Grief. Denies SA or SI. Pt willing to try Therapy. Will have Jennifer Rojas (Community Navigator) facilitate this request. Pt thinks maybe her Anxiety and Panic Attcks causing her to be SOB, and thinks she might need Prednisone. She is currently using Symbicort BID, Albuterol Neb at home. [facility] Medical History (Updated 11/12/24 @ 17:08 by Teena Kenney NP) Generalized anxiety disorder with panic attacks Cough Influenza A Surgical History History of surgery History of bone marrow donation History of myomectomy History of section Family History Father Neuropathy Diabetes mellitus Mother Afib CVD (cardiovascular disease) Myocardial infarction Brother Leukemia Brother No problems noted. Maternal Grandfather History of heart attack Maternal Grandmother Cancer Alzheimer's disease History of mastectomy Paternal Grandmother History of CVA (cerebrovascular accident) Paternal Grandfather Leukemia Maternal Aunt Ovarian cancer Brother No problems noted. Brother No problems noted. Son No problems noted. Social History Housing: House Alcohol intake: never Patient Tobacco Use Status: Never used Tobacco e-Cigarette/Vaping Use: Never Used service: No Current occupational status: employed Cognitive needs: No Hearing needs: No Vision needs: No Review of Systems Const All systems reviewed & are unremarkable except as noted in HPI and below Physical Exam Vital Signs: Last Vital Signs Temp 98.2 F 11/12/24 13:30 Pulse 85 11/12/24 13:30 BP 120/90 H 11/12/24 13:30 Pulse Ox 96 11/12/24 13:30 Oxygen Delivery Method Room Air 11/12/24 13:30 Const General: cooperative, no acute distress and anxious Nutritional Appearance: obese morbidly obese Orientation/consciousness: patient oriented x3 Resp Effort & Inspection: normal respiratory effort and able to speak in complete sentences Auscultation: clear to auscultation bilaterally, no crackles, no rales, no rhonchi and no wheezes Cardio Heart sounds: S1 normal heart sound present and S2 normal heart sound present Neuro General: patient oriented x3 Psych Other: Very emotional and crying at times during today's visit. Speech and movement: Normal speech and movement present Affect: Sad affect present and Anxious affect present Assessment & Plan Assessment & Plan (1) Generalized anxiety disorder with panic attacks: Code(s): F41.1 - Generalized anxiety disorder; F41.0 - Panic disorder [episodic paroxysmal anxiety] Plan: Community Navigator spoke to patient in the room in length. Pt will start Mental health therapy soon. Take Ativan prn for Panic attacks Take Hydroxyzine as prescribed (Pt was not taking this originally because she does not like taking mental health medications). (2) Cough: Code(s): R05.9 - Cough, unspecified Qualifiers: Cough type: subacute Qualified Code(s): R05.2 - Subacute cough Plan: Stable, complete Abx as prescribed. Use Albuterol inhaler PRN and Neb Tx at home. Coding Level of Care Code Est Pt Level 4 (83553) Diagnoses Generalized anxiety disorder with panic attacks F41.1; F41.0 Subacute cough R05.2 Cough type: subacute Time Spent (min) 20
[2024-11-12 13:30] VITALS: BP 120/90; PULSE 85; TEMP 36.8; O2SAT 96
== END 2024-11-12 16:12 | disposition home or self-care (01) ==
PROVIDERS: PCP Internal Medicine; Visit Provider Nurse Practitioner Family
DX: F41.1 Generalized anxiety disorder (principal); F41.0 Panic disorder [episodic paroxysmal anxiety]; R05.2 Subacute cough

== ENCOUNTER → 2024-11-12 12:24 | Outpatient (BNVA) | payer OTHER, SELFPAY | PROVIDERS: PCP Internal Medicine; Visit Provider Nurse Practitioner Family | DX: F41.1 Generalized anxiety disorder (principal); F41.0 Panic disorder [episodic paroxysmal anxiety]; R05.2 Subacute cough | CPT/HCPCS: 99212 ==

== ENCOUNTER 2025-01-04 08:26 | Outpatient (REF) | payer OTHER, SELFPAY ==
--- OUTSIDE RECORDS SUMMARY | 2025-01-04 08:33 | XMS_ITS | Encounter Summary ---
Author Organization [facility], Address [address] [place] [address] Phone Care Team Providers Care Care Companion Name Role Phone Shannan Mcnulty MD Primary Care Provider [phone] Reason for Visit * Reason Comments Med Refill Encounter Details Date Type Department Care Team (Late st Contact Info) Description 09/15/2023 Refill [facility] - [facility] [address] [place] [phone] Niels Nagy MD [address] [place] [phone] Social History Tobacco Use Types Packs/Day Years [...] on filedocumented in this encounter Care Teams Care Companion Relationship Specialty Start Date End Date Shannan Mcnulty MD [place] [address] PCP - General Internal Medicine 01/05/24 documented as of this encounter
--- OUTSIDE RECORDS SUMMARY | 2025-01-04 08:34 | XMS_ITS | Clinical Summary ---
Author Organization [facility] Address [address] [place] [address] Phone Care Team Providers Care Assistant Cook Name Role Phone Shannan Mcnulty MD Primary Care Provider [phone] Allergies Active Allergy Reactions Criticality Noted Date [...] 70 07/20/2024 12:27 AM EST Temperature 36.8 C (98.2 F) 07/20/2024 12:27 AM EST Respiratory Rate 18 07/20/2024 12:29 AM EST [...] Years (1 of 2 - PCV) 1993 Cervical Cancer Screening: Pap Smear 1995 Hepatitis B Vaccines (2 of 3 - 19+ 3-dose series) 02/07/2009 01/10/2009 DTaP,Tdap,and Td Vaccines (3 - Td or Tdap) 01/10/2019 01/10/2009, 05/09/2005 Cholesterol Screening (Lipid Panel) 07/26/2023 Colorectal Cancer Screening: Colonoscopy 07/26/2023 Depression Screening 07/26/2023 HIV Screening 07/26/2023 Hepatitis C Screening 07/26/2023 Social Influencers of Health Screening 07/26/2023 COVID-19 Vaccine (1 - 2024-25 season) 2024 Zoster Vaccines (1 of 2) 02/27/2024 Influenza Vaccine (#1) 2025 9, 03/17/2018, 06/07/2016, Additional history exists Hypertension/CHF/CAD Annual [...] mmol/L LAB CHEMISTRY METHOD 07/19/2024 5:43 PM [facility] Potassium 3.7 3.5 - 5.5 mmol/L LAB CHEMISTRY METHOD 07/19/2024 5:43 PM EST [facility] Chloride 100 96 - 110 mmol/L LAB CHEMISTRY METHOD 07/19/2024 5:43 PM [facility] CO2 26 21 - 32 mmol/L LAB CHEMISTRY METHOD 07/19/2024 5:43 PM EST [facility] Anion Gap 8 3 - 11 LAB CHEMISTRY METHOD 07/19/2024 5:43 PM EST [facility] Glucose 178(H) 70 - 100 mg/dL LAB CHEMISTRY METHOD 07/19/2024 5:43 PM [facility] BUN 18 5 - 25 mg/dL LAB CHEMISTRY METHOD 07/19/2024 5:43 PM [facility] Creatinine 0.76 0.50 - 1.10 mg/dL LAB CHEMISTRY METHOD 07/19/2024 5:43 PM [facility] eGFR 96 >=60 mL/min/1. 73m2 LAB CHEMISTRY METHOD 07/19/2024 5:43 PM [facility] Comment:Calculation based on the Chronic Kidney Disease Epidemiology Collaboration (CKD-EPI) equation refit without adjustment for race. BUN/Creatinine Ratio 23.7 LAB CHEMISTRY METHOD 07/19/2024 5:43 PM [facility] Calcium 8.9 8.5 - 10.5 mg/dL LAB CHEMISTRY METHOD 07/19/2024 5:43 PM [facility] Blood Venous blood specimen / Unknown Venipuncture / Unknown 07/19/2024 4:56 PM EST 07/19/2024 5:12 PM EST Jemal Camacho MD LAB BLOOD ORDERABLES Final Resu lt [facility] [address] [place] [address], from Last 3 Months or Most Recently Relevant to Health Maintenance Insurance [facility] Care Teams Assistant Cook Relationship Specialty Start Date End Date Shannan Mcnulty MD [address] [place] [address] PCP - General Internal Medicine 06/16/24
[2025-01-04 10:22] LABS: MANUAL DIFF FLAG NO
[2025-01-04 10:39] LABS: Hematocrit 43.4 % (37.0-47.0); Hemoglobin 14.6 g/dl (12.0-16.0); Imm Gran Abs Auto 0.06 X10*3/uL (0.00-0.03); Imm Gran Pct Auto 0.8 % (0.0-0.4); Lymphocytes Absolute Auto 2.3 X10*3/uL (1.2-4.9); Mean Corpuscular HGB Conc 33.6 g/dl (31.0-35.0); Mean Corpuscular Hemoglobin 28.9 pg (27.0-33.0); Mean Corpuscular Volume 85.8 fL (80.0-98.0); NRBC Abs Auto 0.000 X10*3/uL (0.0-0.012); NRBC Pct Auto 0.0 /100WBC (0.0-0.2); Platelet Count 264 X10*3/uL (160-400); Red Blood Count 5.06 X10*6/uL (4.20-5.50); White Blood Count 7.9 X10*3/uL (4.8-10.8)
[2025-01-04 10:56] LABS: Hemoglobin A1C 173.7691 umol/L; Total Hemoglobin (HGBA1C) 3886.6382 umol/L
[2025-01-04 11:11] LABS: Alanine Aminotransferase 26 U/L (0-31); Albumin Level 4.3 g/dL (3.5-5.0); Alkaline Phosphatase 71 U/L (39-117); Anion Gap 12 (12-20); Aspartate Amino Transferase 32 U/L (5-31); Blood Urea Nitrogen 22 mg/dL (9-16); Calcium 9.6 mg/dL (8.4-10.2); Carbon Dioxide 29 mmol/L (22-29); Chloride 100 mmol/L (96-108); Cholesterol 237 mg/dL (<200); Estimated Glomerular Filt Rate > 60; HDL Cholesterol 35 mg/dL (>40); Potassium 3.4 mmol/L (3.3-5.1); Sodium 138 mmol/L (135-145); Total Protein 7.4 g/dL (6.5-8.0); Triglycerides 280 mg/dL (<150)
== END 2025-01-04 08:27 | disposition home or self-care (01) ==
LOC: HO.HMGCLDS 08:26
PROVIDERS: PCP Internal Medicine; Visit Provider Internal Medicine
DX: Z00.01 Encounter for general adult medical examination with abnormal findings (principal); I10 Essential (primary) hypertension; J45.40 Moderate persistent asthma, uncomplicated; K21.9 Gastro-esophageal reflux disease without esophagitis; B00.1 Herpesviral vesicular dermatitis; E66.01 Morbid (severe) obesity due to excess calories; Z68.39 Body mass index [BMI] 39.0-39.9, adult
CPT/HCPCS: 36415; 80053; 80061; 83036; 84443; 85025

== ENCOUNTER 2025-01-08 14:35 | Outpatient (AMB) | payer OTHER, SELFPAY ==
[2025-01-08 14:37] VITALS: BP 136/80; PULSE 82; O2SAT 97; BMI 42.8
--- NOTE | 2025-01-08 14:37 | MHC.PC.OV ---
Vital Signs 01/08/25 14:37 Height 5 ft 6 in Weight 265 lb BMI 42.8 BP 136/80 Blood Pressure Location Lt brachial Position Sitting Pulse 82 Pulse Source Pulse Oximeter Pulse Oximetry (%) 97 Intake Visit Reasons: 3m f/u Instrument And Electrical Technician Required: No Allergies amoxicillin Allergy (Unknown, Verified 01/08/25 14:39) hives hydromorphone (Dilaudid) Adverse Reaction (Unknown, Verified 01/08/25 14:39) makes her sick Environmental Allergy (Unknown, Uncoded 11/08/24 13:14) Unknown Medication List - Last Reconciled 01/08/25 by Shannan Mcnulty MD acetaminophen (Tylenol Extra Strength) 1,000 mg PO Q6H PRN albuterol sulfate 90 mcg/actuation (Ventolin HFA) 2 puffs inhalation Q4-6H PRN 30 days doxycycline hyclate 100 mg PO BID 10 days fluticasone propionate 50 mcg/actuation (Allergy Relief (fluticasone)) 2 sprays intranasal DAILY furosemide 20 mg PO Q OTHER DAY PRN 30 days hydrochlorothiazide 25 mg PO DAILY ipratropium-albuterol 0.5 mg-3 mg(2.5 mg base)/3 mL 3 mL inhalation Q4-6H PRN loratadine (Claritin) 10 mg PO DAILY lorazepam 0.5 mg PO BEDTIME PRN 30 days losartan 50 mg PO DAILY metoprolol succinate ER 50 mg PO BID omeprazole 20 mg PO QAM Symbicort 160-4.5 mcg/actuation (budesonide-formoterol) 2 puffs inhalation BID 90 days NS Ventolin HFA 90 mcg/actuation (albuterol sulfate) 1 inh inhalation QID PRN 30 days NS Tobacco use date assessed: 10/05/24 Dental Screening Dental Screen Date: 10/05/24 HPI 3m f/u HPI Details History - The patient is a 49-year-old female presenting for ongoing care And follow-up regarding asthma management. The patient reports stable asthma symptoms but experiences headaches with the use of nasal sprays, opting instead for saline solution. 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 Asthmatic symptoms have been lifelong, with significant childhood exacerbations managed with adrenaline shots. - The patient has issues with bladder control, especially since childbirth via section, experiencing urgency during work hours and at night. The patient attempts Kegel exercises but struggles with technique. - Sleep disturbances are noted, with nocturnal and daytime somnolence, potentially from mouth breathing due to presumed sinus congestion. A sleep study was suggested for further assessment. - The patient's prediabetes management is under discussion, with dietary indiscretions including soda and sweets contributing to high A1c levels. The requirement to avoid these foods is acknowledged. - The patient is managing chronic stress related to family healthcare issues. Anxiety symptoms are reportedly managed with lorazepam, particularly post-dinner for improved nighttime rest. Medical History: - Asthma - Anxiety treated with lorazepam - Prediabetes - Hypertension managed with metoprolol and losartan - GERD, previously on omeprazole - Possible bladder control issues - Headaches associated with nasal spray use Surgical History: - section Medications: - Albuterol for asthma - Losartan 50 mg for blood pressure - Loratadine for allergies - Metoprolol 50 mg BID for hypertension - Omeprazole for GERD (currently discontinued) - Furosemide as needed for ankle swelling - Symbicort for asthma - Lorazepam after dinner for anxiety Social History: - The patient works during the day and reports issues with managing urinary urgency due to the nature of their job. - Reports stress related to parental caregiving and other family responsibilities. - Dietary habits include high sugar intake and previously frequent soda consumption, with a noted desire to reduce these habits. - Experiences nighttime awakening due to thirst but tries to stay hydrated throughout the day. - Admits abstaining from coffee and soda, replacing these with water and trying green tea. Family History: - Father with liver problems - Brother of leukemia - Mother with aortic valve issues Diagnostic Results: - Labs: Electrolytes normal, potassium level 3.4. Kidney function normal. Fasting glucose 124, A1c 6.2. Liver enzymes elevated. LDL 146. Problem List - Asthma - Anxiety - Prediabetes - Hypertension - GERD - Possible sleep disorder - Bladder control issues - chronic nasal congestion with mouth breathing at night Patient Instructions - Continue using albuterol for asthma management as needed. - Avoid soda, sweets, and increase water intake especially in the morning. - Monitor and manage stress, potentially through suitable stress-relief activities. - Consider a sleep study if symptoms persist. - Dietary modifications emphasizing reduced sugar intake are recommended. - continue medications Follow-up 3 months Review of Systems - General: No fever no chills - Neurological: No headaches no dizziness - Ear nose throat: No sore throat no hearing difficulty no ear pain - Cardiovascular: No syncope, no chest pain, no palpitations - Gastrointestinal: No nausea vomiting or diarrhea - Endocrine: No polyuria polydipsia no heat intolerance - Genitourinary: No dysuria , no blood in urine Physical Exam General: No acute distress HEENT: No acute findings Neck: Supple Respiratory system: Lungs are clear Cardiovascular: S1-S2 regular in rate and rhythm Gastrointestinal: No pain Extremities: No new findings CUSTOMER ASSISTANCE ASSOCIATE: Alert awake oriented x3 motor sensory intact Skin: Normal turgor PFSH Medical History Generalized anxiety disorder with panic attacks Cough Influenza A Surgical History History of surgery History of bone marrow donation History of myomectomy History of section Family History Father Neuropathy Diabetes mellitus Mother Afib CVD (cardiovascular disease) Myocardial infarction Brother Leukemia Brother No problems noted. Maternal Grandfather History of heart attack Maternal Grandmother Cancer Alzheimer's disease History of mastectomy Paternal Grandmother History of CVA (cerebrovascular accident) Paternal Grandfather Leukemia Maternal Aunt Ovarian cancer Brother No problems noted. Brother No problems noted. Son No problems noted. Social History Housing: House Alcohol intake: never Patient Tobacco Use Status: Never used Tobacco e-Cigarette/Vaping Use: Never Used service: No Current occupational status: employed Cognitive needs: No Hearing needs: No Vision needs: No Questionnaire Thrive Questionnaire Date Thrive assessed: 10/05/24 I am a: Patient What is your living situation today?: I have a steady place to live Within the past 12 months, did the food you bought not last and you didn't have the money to get more?: Never true Within the past 12 months, did you worry whether your food would run out before you got money to buy more?: Never true Do you have trouble paying for medicines?: No Do you have trouble getting transportation to medical appointments?: No Do you have trouble paying your heating and electricity bill?: No Do you have trouble taking care of your child, family member or friend?: No Do you have trouble with day-to-day activities such as bathing, preparing meals, shopping, managing finances, etc.?: No Are you currently unemployed and looking for a job?: No Are you interested in more education?: No Please select the resources that you would like help with: None Currently or been in a relationship where the following occur: No concerns reported THRIVE Score: 0 AUDIT C Alcohol Use Questionnaire (AUDIT-C) 3. How often do you have six or more drinks on one occasion?: Never Total Score: 0 JLUIS-7 AMB Questionnaire JLUIS-7 Date JLUIS - 7 assessed: 10/05/24 Source: Developed by Drs. Andriy Jaramillo, Gissell Paniagua, Jono Stone and colleagues, with an educational jessa from [employer]. Physical exam (Primary Care) Vital Signs: Last Vital Signs Pulse 82 01/08/25 14:37 BP 136/80 01/08/25 14:37 Pulse Ox 97 01/08/25 14:37 BMI result Body Mass Index 42.8 Tobacco/Smoking Status: Tobacco use Status Tobacco use date assessed 10/05/24 01/08/25 14:41 Patient Tobacco Use Status Never used Tobacco 01/08/25 14:41 e-Cigarette/Vaping Use Never Used 01/08/25 14:41 Thrive Assessment: Date of Thrive Assessment Date Thrive assessed 10/05/24 01/08/25 14:41 Currently or been in a relationship where the following occur: No concerns reported Coding Level of Care Code Est Pt Level 4 (71324) Complex EM visit Add On G2211 Diagnoses Hypertension, essential I10 Moderate persistent asthma without complication J45.40 Asthma complication type: uncomplicated Daytime somnolence R40.0 Generalized anxiety disorder with panic attacks F41.1; F41.0 Snoring R06.83 Prediabetes R73.03 Morbid obesity due to excess calories E66.01 Chronic GERD K21.9 Recurrent herpes labialis B00.1 Environmental allergies Z91.09 Difficulty sleeping G47.9 Assessment & Plan Assessment & Plan (1) Hypertension, essential: Code(s): I10 - Essential (primary) hypertension Category: Medical (2) Asthma, moderate persistent: Code(s): J45.40 - Moderate persistent asthma, uncomplicated Category: Medical Qualifiers: Asthma complication type: uncomplicated Qualified Code(s): J45.40 - Moderate persistent asthma, uncomplicated (3) Daytime somnolence: Code(s): R40.0 - Somnolence Category: Medical (4) Generalized anxiety disorder with panic attacks: Code(s): F41.1 - Generalized anxiety disorder; F41.0 - Panic disorder [episodic paroxysmal anxiety] Category: Medical (5) Snoring: Code(s): R06.83 - Snoring Category: Medical (6) Prediabetes: Code(s): R73.03 - Prediabetes Category: Medical (7) Morbid obesity due to excess calories: Code(s): E66.01 - Morbid (severe) obesity due to excess calories Category: Medical (8) Chronic GERD: Code(s): K21.9 - Gastro-esophageal reflux disease without esophagitis Category: Medical (9) Recurrent herpes labialis: Code(s): B00.1 - Herpesviral vesicular dermatitis Category: Medical (10) Environmental allergies: Code(s): Z91.09 - Other allergy status, other than to drugs and biological substances Category: Medical (11) Difficulty sleeping: Code(s): G47.9 - Sleep disorder, unspecified Category: Medical Plan History - The patient is a 49-year-old female presenting for ongoing care And follow-up regarding asthma management. The patient reports stable asthma symptoms but experiences headaches with the use of nasal sprays, opting instead for saline solution. 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 Asthmatic symptoms have been lifelong, with significant childhood exacerbations managed with adrenaline shots. - The patient has issues with bladder control, especially since childbirth via section, experiencing urgency during work hours and at night. The patient attempts Kegel exercises but struggles with technique. - Sleep disturbances are noted, with nocturnal and daytime somnolence, potentially from mouth breathing due to presumed sinus congestion. A sleep study was suggested for further assessment. - The patient's prediabetes management is under discussion, with dietary indiscretions including soda and sweets contributing to high A1c levels. The requirement to avoid these foods is acknowledged. - The patient is managing chronic stress related to family healthcare issues. Anxiety symptoms are reportedly managed with lorazepam, particularly post-dinner for improved nighttime rest. Medical History: - Asthma - Anxiety treated with lorazepam - Prediabetes - Hypertension managed with metoprolol and losartan - GERD, previously on omeprazole - Possible bladder control issues - Headaches associated with nasal spray use Surgical History: - section Medications: - Albuterol for asthma - Losartan 50 mg for blood pressure - Loratadine for allergies - Metoprolol 50 mg BID for hypertension - Omeprazole for GERD (currently discontinued) - Furosemide as needed for ankle swelling - Symbicort for asthma - Lorazepam after dinner for anxiety Social History: - The patient works during the day and reports issues with managing urinary urgency due to the nature of their job. - Reports stress related to parental caregiving and other family responsibilities. - Dietary habits include high sugar intake and previously frequent soda consumption, with a noted desire to reduce these habits. - Experiences nighttime awakening due to thirst but tries to stay hydrated throughout the day. - Admits abstaining from coffee and soda, replacing these with water and trying green tea. Family History: - Father with liver problems - Brother of leukemia - Mother with aortic valve issues Diagnostic Results: - Labs: Electrolytes normal, potassium level 3.4. Kidney function normal. Fasting glucose 124, A1c 6.2. Liver enzymes elevated. LDL 146. Problem List - Asthma - Anxiety - Prediabetes - Hypertension - GERD - Possible sleep disorder - Bladder control issues - chronic nasal congestion with mouth breathing at night Patient Instructions - Continue using albuterol for asthma management as needed. - Avoid soda, sweets, and increase water intake especially in the morning. - Monitor and manage stress, potentially through suitable stress-relief activities. - Consider a sleep study if symptoms persist. - Dietary modifications emphasizing reduced sugar intake are recommended. - continue medications Follow-up 3 months Orders: Orders RT home sleep study Today E66.01 - Morbid (severe) obesity due to excess calories, G47.9 - Sleep disorder, unspecified, R06.83 - Snoring, R40.0 - Somnolence Medications: New albuterol sulfate 0.63 mg (3 mL) inhalation QID PRN 90 mL 2RF shortness of breath or wheezing Refilled lorazepam 0.5 mg PO BEDTIME PRN 30 tabs 2RF anxiety 30 days Discontinued ipratropium-albuterol 0.5 mg-3 mg(2.5 mg base)/3 mL Discontinued Reason: Doctor's Order 3 mL inhalation Q4-6H PRN 90 mL 1RF wheezing
--- OUTSIDE RECORDS SUMMARY | 2025-01-08 15:55 | XMS_ITS | Encounter Summary ---
Author Organization [facility], Address [address] [place] [address] Phone Care Team Providers Care Senior Design Engineering Specialist Name Role Phone Shannan Mcnulty MD Primary Care Provider [phone] Reason for Visit * Reason Comments Med Refill Encounter Details Date Type Department Care Team (Late st Contact Info) Description 09/15/2023 Refill [facility] - [facility] [address] [place] [phone] Niels Nagy MD [address] [place] [id number] Social History Tobacco Use Types Packs/Day Years [...] filedocumented in this encounter Care Teams Senior Design Engineering Specialist Relationship Specialty Start Date End Date Shannan Mcnulty MD [facility] [place] [address] PCP - General Internal Medicine 01/05/24 documented as of this encounter
--- OUTSIDE RECORDS SUMMARY | 2025-01-08 15:55 | XMS_ITS | Clinical Summary ---
Author Organization [facility] Address [address] [place] [address] Phone Care Team Providers Care Account Solutions Analyst Name Role Phone Shannan Mcnulty MD Primary Care Provider [phone] Allergies Active Allergy Reactions Criticality Noted Date [...] LAB CHEMISTRY METHOD 07/19/2024 5:43 PM EST [facility] Chloride 100 96 - 110 mmol/L LAB CHEMISTRY METHOD 07/19/2024 5:43 PM [facility] CO2 26 21 - 32 mmol/L LAB CHEMISTRY METHOD 07/19/2024 5:43 PM EST [facility] Anion Gap 8 3 - 11 LAB CHEMISTRY METHOD 07/19/2024 5:43 PM EST [facility] Glucose 178(H) [...] [facility] Comment:Calculation based on the Chronic Kidney [...] MD LAB BLOOD ORDERABLES Final Resu lt [facility] [address] [place] [address], from Last 3 Months or Most Recently Relevant to Health Maintenance Insurance [facility] [employer] Care Teams Account Solutions Analyst Relationship Specialty Start Date End Date Shannan Mcnulty MD [address] [place] [phone] PCP - General Internal Medicine 06/16/24
== END 2025-01-08 14:57 | disposition home or self-care (01) ==
LOC: HO.HMCC 14:35
PROVIDERS: PCP Internal Medicine; Visit Provider Internal Medicine
DX: I10 Essential (primary) hypertension (principal); J45.40 Moderate persistent asthma, uncomplicated; E66.01 Morbid (severe) obesity due to excess calories; Z68.41 Body mass index [BMI] 40.0-44.9, adult; R40.0 Somnolence; F41.1 Generalized anxiety disorder; F41.0 Panic disorder [episodic paroxysmal anxiety]; R06.83 Snoring; R73.03 Prediabetes; K21.9 Gastro-esophageal reflux disease without esophagitis; B00.1 Herpesviral vesicular dermatitis; Z91.09 Other allergy status, other than to drugs and biological substances

== ENCOUNTER → 2025-01-08 14:35 | Outpatient (BNVA) | payer OTHER, SELFPAY | PROVIDERS: PCP Internal Medicine; Visit Provider Internal Medicine | DX: I10 Essential (primary) hypertension (principal); J45.40 Moderate persistent asthma, uncomplicated; R73.03 Prediabetes; R40.0 Somnolence; F41.1 Generalized anxiety disorder; F41.0 Panic disorder [episodic paroxysmal anxiety]; R06.83 Snoring; E66.01 Morbid (severe) obesity due to excess calories; K21.9 Gastro-esophageal reflux disease without esophagitis; B00.1 Herpesviral vesicular dermatitis; G47.9 Sleep disorder, unspecified; Z68.41 Body mass index [BMI] 40.0-44.9, adult; Z91.09 Other allergy status, other than to drugs and biological substances; Z63.8 Other specified problems related to primary support group | CPT/HCPCS: 99212 ==